=== PATIENT | male | born 1975 | race Caucasian/White ===

== ENCOUNTER 2019-05-09 10:03 | Inpatient (IN) | payer BC, OTHER ==
[~2019-05-09] VITALS: Ht 175.3 cm; Wt 105.2 kg
[~2019-05-09 10:03] MED LIST: AC500T; AZIT-21 PO; MMT17NA NS
--- NOTE | 2019-05-09 10:20 | NUR ---
pt gave urine sample at this time, unable to given BM sample
[2019-05-09 10:33] LABS: BASOPHILS # (AUTO) 0.1 10^3/uL (0.0-0.1); BASOPHILS % (AUTO) 0 % (0-10); EOSINOPHILS # (AUTO) 0.1 10^3/uL (0.0-0.3); EOSINOPHILS % (AUTO) 1 % (0-10); HEMATOCRIT 47 % (40-54); HEMOGLOBIN 16.4 G/DL (13.3-17.7); LYMPHOCYTES # (AUTO) 2.6 X 10^3 (1.0-4.0); LYMPHOCYTES % (AUTO) 14 % (12-44); MEAN CORPUSCULAR HEMOGLOBIN 32 PG (25-34); MEAN CORPUSCULAR HGB CONC 35 G/DL (32-36); MEAN CORPUSCULAR VOLUME 91 FL (80-99); MEAN PLATELET VOLUME 9.8 FL (7.4-10.4); MONOCYTES # (AUTO) 2.2 X 10^3 (0.0-1.0); MONOCYTES % (AUTO) 12 % (0-12); NEUTROPHILS # (AUTO) 13.8 X 10^3 (1.8-7.8); NEUTROPHILS % (AUTO) 74 % (42-75); PLATELET COUNT 261 10^3/uL (130-400); RED CELL DISTRIBUTION WIDTH 13.5 % (10.0-14.5); WHITE BLOOD COUNT 18.8 10^3/uL (4.3-11.0)
[2019-05-09 10:51] LABS: ALANINE AMINOTRANSFERASE 37 U/L (0-55); ALBUMIN 4.3 GM/DL (3.2-4.5); ALKALINE PHOSPHATASE 76 U/L (40-136); BILIRUBIN,TOTAL 1.3 MG/DL (0.1-1.0); BUN/CREATININE RATIO 8; CALCIUM 9.5 MG/DL (8.5-10.1); CARBON DIOXIDE 19 MMOL/L (21-32); CHLORIDE 107 MMOL/L (98-107); CREATININE SERUM 0.99 MG/DL (0.60-1.30); GFR ESTIMATED > 60; GLUCOSE 107 MG/DL (70-105); POTASSIUM 3.8 MMOL/L (3.6-5.0); SODIUM 139 MMOL/L (135-145); TOTAL PROTEIN 7.8 GM/DL (6.4-8.2)
[2019-05-09 11:30] LABS: EOSINOPHILS % (MANUAL) 1 %; LYMPHOCYTES % (MANUAL) 10 %; MONOCYTES % (MANUAL) 7 %; NEUTROPHILS % (MANUAL) 82 %; RBC MORPH NORMAL
[2019-05-09] MEDS ORDERED: fentaNYL INJECTION 100 MCG/2 ML AMP IVP ONE ×2 (11:45→14:15)
[2019-05-09 11:50] LABS: BACTERIA,URINE TRACE /HPF; BILIRUBIN,URINE NEGATIVE (NEGATIVE); CLARITY,URINE CLEAR; COLOR,URINE YELLOW; GLUCOSE, URINE (UA) NEGATIVE (NEGATIVE); KETONES,URINE 1+ (NEGATIVE); LEUKOCYTE ESTERASE ,URINE 1+ (NEGATIVE); NITRITE,URINE NEGATIVE (NEGATIVE); PH,URINE 5 (5-9); PROTEIN,URINE 2+ (NEGATIVE); UROBILINOGEN,URINE NORMAL (NORMAL)
[2019-05-09 11:51] LABS: AMORPHOUS SEDIMENT,UR FEW AMOR URATES /LPF
[2019-05-09] MEDS ORDERED: HOLD METFORMIN - RECEIVED CONTRAST 20 ML VIAL IV SCH (12:15)
[2019-05-09] MEDS ORDERED: IOHEXOL 350 MG/ML 100 ML (OMNIPAQUE 350) VIAL IV ONE (12:15)
[2019-05-09] MEDS ORDERED: NS 100 ML (IVPB) BAG IV ONE (12:15)
--- NOTE | 2019-05-09 12:53 | NUR ---
pt sitting quietly on bed visiting with spouse, pt denies any needs or c/o at this time, pt shows no s/s of distress, vs assessed and stable, pt rates pain at a 3/10, will continue to monitor
--- NOTE | 2019-05-09 12:59 | Diagnostic Imaging Report ---
PROCEDURE: CT abdomen and pelvis with contrast. TECHNIQUE: Multiple contiguous axial images were obtained through the abdomen and pelvis after administration of intravenous contrast. Auto Exposure Controls were utilized during the CT exam to meet ALARA standards for radiation dose reduction. INDICATION: Abdominal pain between the navel and bladder. Fever, onset 2 weeks ago. Prior history of kidney stones and diverticulitis. EXAMINATION: CT abdomen and pelvis with contrast dated 05/09/2019. COMPARISON: 02/19/2012 FINDINGS: The visualized lung bases appear clear. There is a small hiatal hernia. The abdomen and pelvis demonstrates diffuse fatty infiltration throughout the liver. Several hypodensities throughout the liver are noted which are fairly simple in appearance but some are too small for characterization. A few of the hypodensities in the right lobe have increased in size from previous imaging but have a fairly benign appearance. The spleen, pancreas and adrenal glands stable from previous. Kidneys unchanged from prior as well. Tiny hypodensities too small to characterize, seen in both kidneys. There is atherosclerotic disease along the aorta and its branches. Within the lower abdomen, into the pelvis, there is focal inflammatory change about the sigmoid colon consistent with acute diverticulitis. Adjacent wall thickening of the sigmoid is noted with diverticular disease present. There is no evidence for free air or abscess. Osseous structures demonstrate no evidence for acute abnormality. IMPRESSION: 1. Findings of acute diverticulitis. No evidence for perforation or abscess. 2. Other incidental findings as above including multiple low-density lesions throughout the liver, some of which are slightly increased in size from previous but could be followed with sonography or dedicated liver protocol CT as clinically indicated. Dictated by: Dictated on workstation # [id number]
[2019-05-09] MEDS ORDERED: PIPERACILLIN SODIUM/TAZOBACTAM 4.5 GM in NS (IVPB) 100 ML IV ONE (13:30)
--- NOTE | 2019-05-09 13:31 | ED Abdominal Pain ---
General Chief Complaint: Abdominal/GI Problems Stated Complaint: ABD PAIN/DIARRHEA/FEVER Nursing Triage Note: states he has a history of diverticulitis, was seen two weeks ago at [facility] and was given flagyl and cipro, states he finished the medicaitons and is still have diarrhea and abdominal pain, states each time he drinks or eats it just "runs right through him" Sepsis Screen: Possible Sepsis Risk Source of Information: Patient Exam Limitations: No Limitations History of Present Illness Date Seen by Provider: May 09, 2019 Time Seen by Provider: 10:13 Initial Comments This 43-year-old gentleman presents to the emergency room with complaints of lower abdominal pain and diarrhea for 2-3 weeks. He had presented to the [facility] walk-in clinic with these symptoms and was prescribed Cipro and Flagyl for 10 days resuming diverticulitis. Patient does have a history of diverticulitis with microperforation. He completed 10 days of antibiotic therapy but now has worsening pain and persistent diarrhea. Anything he eats or drinks goes straight through him. He has had subjective fever. He denies hematochezia, nausea, or vomiting. Patient also reports he passed a kidney stone a couple of weeks ago area and he denies any blood in his urine. He is afebrile at present. Allergies and Home Medications Allergies Uncoded Allergies: ENVIRONMENTAL (Allergy, Mild, 06/06/09) Patient Home Medication List Home Medication List Reviewed: Yes Review of Systems Review of Systems Constitutional: see HPI, fever (subjective) EENTM: No Symptoms Reported Respiratory: No Symptoms Reported Cardiovascular: No Symptoms Reported Gastrointestinal: See HPI Genitourinary: See HPI Musculoskeletal: no symptoms reported Skin: no symptoms reported Psychiatric/Neurological: No Symptoms Reported Endocrine: No Symptoms Reported Hematologic/Lymphatic: No Symptoms Reported Past Snfvwlz-Xynsbt-Jjbaml Hx Patient Social History Alcohol Use: Denies Use Recreational Drug Use: No Smoking Status: Current Everyday Smoker Type Used: Cigarettes 2nd Hand Smoke Exposure: Yes Recent Foreign Travel: No Contact w/Someone Who Travel: No Recent Infectious Disease Expo: No Recent Hopitalizations: No Seasonal Allergies Seasonal Allergies: No Past Medical History Surgeries: No Respiratory: Yes (smoker (current)) Cardiac: No Neurological: No Reproductive Disorders: No Genitourinary: Yes Kidney Stones Gastrointestinal: Yes (diverticulitis) Diverticulosis (diverticulitis with microperforation) Musculoskeletal: No Endocrine: No HEENT: No Cancer: No Psychosocial: No Integumentary: No Blood Disorders: No Physical Exam Vital Signs Vital Signs - First Documented 05/09/19 10:10 Temp 99.4 Pulse 126 Resp 18 B/P (MAP) 119/88 (98) Capillary Refill : Less Than 3 Seconds Height/Weight/BMI Height: 5'9.00" Weight: 240lbs. oz. 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, no motor/sensory deficits, alert, normal mood/affect, oriented x 3 Skin: normal color, warm/dry Progress/Results/Core Measures Results/Orders Lab Results Laboratory Tests Test 05/09/19 10:20 05/09/19 11:32 Range/Units White Blood Count 18.8 H 4.3-11.0 10^3/uL Red Blood Count 5.15 4.35-5.85 10^6/uL Hemoglobin 16.4 13.3-17.7 G/DL Hematocrit 47 40-54 % Mean Corpuscular Volume 91 80-99 FL Mean Corpuscular Hemoglobin 32 25-34 PG Mean Corpuscular Hemoglobin Concent 35 32-36 G/DL Red Cell Distribution Width 13.5 10.0-14.5 % Platelet Count 261 130-400 10^3/uL Mean Platelet Volume 9.8 7.4-10.4 FL Neutrophils (%) (Auto) 74 42-75 % Lymphocytes (%) (Auto) 14 12-44 % Monocytes (%) (Auto) 12 0-12 % Eosinophils (%) (Auto) 1 0-10 % Basophils (%) (Auto) 0 0-10 % Neutrophils # (Auto) 13.8 H 1.8-7.8 X 10^3 Lymphocytes # (Auto) 2.6 1.0-4.0 X 10^3 Monocytes # (Auto) 2.2 H 0.0-1.0 X 10^3 Eosinophils # (Auto) 0.1 0.0-0.3 10^3/uL Basophils # (Auto) 0.1 0.0-0.1 10^3/uL Neutrophils % (Manual) 82 % Lymphocytes % (Manual) 10 % Monocytes % (Manual) 7 % Eosinophils % (Manual) 1 % Blood Morphology Comment NORMAL Sodium Level 139 135-145 MMOL/L Potassium Level 3.8 3.6-5.0 MMOL/L Chloride Level 107 98-107 MMOL/L Carbon Dioxide Level 19 L 21-32 MMOL/L Anion Gap 13 5-14 MMOL/L Blood Urea Nitrogen 8 7-18 MG/DL Creatinine 0.99 0.60-1.30 MG/DL Estimat Glomerular Filtration Rate > 60 BUN/Creatinine Ratio 8 Glucose Level 107 H 70-105 MG/DL Calcium Level 9.5 8.5-10.1 MG/DL Corrected Calcium 9.3 8.5-10.1 MG/DL Total Bilirubin 1.3 H 0.1-1.0 MG/DL Aspartate Amino Transf (AST/SGOT) 19 5-34 U/L Alanine Aminotransferase (ALT/SGPT) 37 0-55 U/L Alkaline Phosphatase 76 40-136 U/L C-Reactive Protein High Sensitivity 12.70 H 0.00-0.50 MG/DL Total Protein 7.8 6.4-8.2 GM/DL Albumin 4.3 3.2-4.5 GM/DL Urine Color YELLOW Urine Clarity CLEAR Urine pH 5 5-9 Urine Specific [place] 1.015 L 1.016-1.022 Urine Protein 2+ H NEGATIVE Urine Glucose (UA) NEGATIVE NEGATIVE Urine Ketones 1+ H NEGATIVE Urine Nitrite NEGATIVE NEGATIVE Urine Bilirubin NEGATIVE NEGATIVE Urine Urobilinogen NORMAL NORMAL MG/DL Urine Leukocyte Esterase 1+ H NEGATIVE Urine RBC (Auto) 3+ H NEGATIVE Urine RBC NONE /HPF Urine WBC 2-5 /HPF Urine Squamous Epithelial Cells NONE /HPF Urine Crystals PRESENT H /LPF Urine Amorphous Sediment FEW DANAY URATES H /LPF Urine Bacteria TRACE /HPF Urine Casts PRESENT /LPF Urine Coarse Granular Casts 0-2 H /LPF Urine Mucus MODERATE H /LPF Urine Culture Indicated NO My Orders Orders - JOSHUA PETERSON MD Ed Iv/Invasive Line Start (05/09/19 10:20) Cbc With Automated Diff (05/09/19 10:20) Comprehensive Metabolic Panel (05/09/19 10:20) Hs C Reactive Protein (05/09/19 10:20) Ua Culture If Indicated (05/09/19 10:20) Stool Culture (05/09/19 10:20) Fecal Wbc (05/09/19 10:20) Parasite Scrn Stool Giard Cryp (05/09/19 10:20) C Difficile Ag + Toxin A/B. (05/09/19 10:20) Manual Differential (05/09/19 10:20) Fentanyl Injection (Sublimaze Injection (05/09/19 11:45) Ct Abdomen/Pelvis W (05/09/19 12:09) Iohexol Injection (Omnipaque 350 Mg/Ml 1 (05/09/19 12:15) Received Contrast (Hold Metformin- Contr (05/09/19 12:15) Ns (Ivpb) (Sodium Chloride 0.9% Ivpb Bag (05/09/19 12:15) Zosyn 4.5 Gm (X1)Ed Only (05/09/19 13:30) Medications Given in ED Current Medications Medications Dose Ordered Sig/Dorita Route Start Time Stop Time Status Last Admin Dose Admin Fentanyl Citrate 50 mcg ONCE ONCE IVP 05/09/19 11:45 05/09/19 11:46 DC 05/09/19 11:41 50 MCG Iohexol 100 ml ONCE ONCE IV 05/09/19 12:15 05/09/19 12:16 DC 05/09/19 12:35 100 ML Sodium Chloride 100 ml ONCE ONCE IV 05/09/19 12:15 05/09/19 12:16 DC 05/09/19 12:36 80 ML Vital Signs/I&O 05/09/19 10:10 Temp 99.4 Pulse 126 Resp 18 B/P (MAP) 119/88 (98) Blood Pressure Mean: 98 Progress Progress Note : Progress Note Patient was found to have significant leukocytosis. Workup was pursued further with CT of the abdomen and pelvis which demonstrated sigmoid diverticulitis. Pain was treated with fentanyl. Diverticulitis will be treated with Zosyn. Since patient has failed outpatient therapy, he will be admitted for IV antibiotic therapy. Case was discussed with Dr. Morrison. She requested consultation with Dr. Scott. He agrees with antibiotic therapy and requests NPO status. Stool studies were ordered in the ER but patient did not per reduce any stool during his ER stay. Diagnostic Imaging Diagonstic Imaging: CT Plain Films/CT/US/NM/MRI: abdomen, pelvis Comments CT abdomen and pelvis viewed by me and report reviewed. See report below: NAME: DELFINO CLEARY [facility] REC#: [id number] PT STATUS: REG ER : 1975 PHYSICIAN: JOSHUA PETERSON MD ADMIT DATE: 05/09/19/ER Draft Date of Exam:05/09/19 CT ABDOMEN/PELVIS W PROCEDURE: CT abdomen and pelvis with contrast. TECHNIQUE: Multiple contiguous axial images were obtained through the abdomen and pelvis after administration of intravenous contrast. Auto Exposure Controls were utilized during the CT exam to meet ALARA standards for radiation dose reduction. INDICATION: Abdominal pain between the navel and bladder. Fever, onset 2 weeks ago. Prior history of kidney stones and diverticulitis. EXAMINATION: CT abdomen and pelvis with contrast dated 05/09/2019. COMPARISON: 02/19/2012 FINDINGS: The visualized lung bases appear clear. There is a small hiatal hernia. The abdomen and pelvis demonstrates diffuse fatty infiltration throughout the liver. Several hypodensities throughout the liver are noted which are fairly simple in appearance but some are too small for characterization. A few of the hypodensities in the right lobe have increased in size from previous imaging but have a fairly benign appearance. The spleen, pancreas and adrenal glands stable from previous. Kidneys unchanged from prior as well. Tiny hypodensities too small to characterize, seen in both kidneys. There is atherosclerotic disease along the aorta and its branches. Within the lower abdomen, into the pelvis, there is focal inflammatory change about the sigmoid colon consistent with acute diverticulitis. Adjacent wall thickening of the sigmoid is noted with diverticular disease present. There is no evidence for free air or abscess. Osseous structures demonstrate no evidence for acute abnormality. IMPRESSION: 1. Findings of acute diverticulitis. No evidence for perforation or abscess. 2. Other incidental findings as above including multiple low-density lesions throughout the liver, some of which are slightly increased in size from previous but could be followed with sonography or dedicated liver protocol CT as clinically indicated. Dictated on workstation # [id number] Dict: 05/09/19 1238 Trans: 05/09/19 1258 [id number] Interpreted by: MARIBEL ROBLES MD Departure Communication (Admissions) Time/Spoke to Admitting Phy: 13:10 Dr. Morrison Time/Spoke to Consulting Phy: 13:15 Dr. Scott Impression Primary Impression: Diverticulitis of intestine Qualified Codes: K57.32 - Diverticulitis of large intestine without perforation or abscess without bleeding Additional Impressions: Acute abdominal pain Acute diarrhea Disposition: ADMITTED INPATIENT Condition: Improved Admissions Decision to Admit Reason: Admit from ER (General) Decision to Admit/Date: May 09, 2019 Time/Decision to Admit Time: 13:05 Departure-Patient Inst. Referrals: NO,LOCAL PHYSICIAN (PCP) Primary Care Physician JOSHUA PETERSON MD May 09, 2019 13:31
--- NOTE | 2019-05-09 15:20 | NUR ---
DELFINO CLEARY admitted to room 417-1, with an admitting diagnosis of DIVERTICULITIS, ABD PAIN AND DIARRHEA, on 05/09/19 from ED via W/C, accompanied by AND ED STAFF. DELFINO CLEARY introduced to surroundings, call light, bed controls, phone, TV, temperature control, lights, meal times, smoking policy, visitor policy, side rail policy, bathrooms and showers. Patient Rights given to patient in the handbook. DELFINO CLEARY verbalizes understanding that [facility] is not responsible for the loss or damage to any personal effects or valuables that are kept in the patients possession during their hospitalization.
[2019-05-09] MEDS ORDERED: D5 1/2 NS W/KCL 20 MEQ/L 1,000 ML IV ONE (15:30)
--- NOTE | 2019-05-09 15:31 | Consultation - Surgery ---
History of Present Illness History of Present Illness Patient Consulted On(jairo/time) 05/09/19 15:26 Time Seen by Provider: 15:01 History of Present Illness Surgery asked to consult regarding Diverticulitis, consult done in ER. HPI per ED: states he has a history of diverticulitis, was seen two weeks ago at [facility] and was given flagyl and cipro, states he finished the medicaitons and is still have diarrhea and abdominal pain, states each time he drinks or eats it just "runs right through him" This 43-year-old gentleman presents to the emergency room with complaints of lower abdominal pain and diarrhea for 2-3 weeks. He had presented to the [facility] walk-in clinic with these symptoms and was prescribed Cipro and Flagyl for 10 days resuming diverticulitis. Patient does have a history of diverticulitis with microperforation. He completed 10 days of antibiotic therapy but now has worsening pain and persistent diarrhea. Anything he eats or drinks goes straight through him. He has had subjective fever. He denies hematochezia, nausea, or vomiting. Patient also reports he passed a kidney stone a couple of weeks ago area and he denies any blood in his urine. He is afebrile at present. When I spoke to him pt states he "must have had 25 episodes of liquid BM since 6pm last night". Pain is mild but just not getting better. He hasn't had any pain like this for at least 7 yrs; that was when he had another episode of Diverticulitis "pain was worse then compared to now". Describes pain in LLQ constant crampy pain; no radiation of the pain. Allergies and Home Medications Allergies Uncoded Allergies: ENVIRONMENTAL (Allergy, Mild, 06/06/09) Patient Home Medication List Home Medication List Reviewed: Yes Past Tpdsjmg-Pzcwlf-Owcubk Hx Patient Social History Alcohol Use: Denies Use Recreational Drug Use: No Smoking Status: Current Everyday Smoker Type Used: Cigarettes 2nd Hand Smoke Exposure: Yes Recent Foreign Travel: No Contact w/Someone Who Travel: No Recent Infectious Disease Expo: No Recent Hopitalizations: No Seasonal Allergies Seasonal Allergies: No Surgeries History of Surgeries: No Respiratory History of Respiratory Disorde: Yes (smoker (current)) Cardiovascular History of Cardiac Disorders: No Neurological History of Neurological Disord: No Reproductive System Hx Reproductive Disorders: No Genitourinary History of Genitourinary Disor: Yes Genitourinary Disorders: Kidney Stones Gastrointestinal History of Gastrointestinal Di: Yes (diverticulitis) Gastrointestinal Disorders: Diverticulosis (diverticulitis with microperforation) Musculoskeletal History of Musculoskeletal Dis: No Endocrine History of Endocrine Disorders: No HEENT History of HEENT Disorders: No Cancer History of Cancer: No Psychosocial History of Psychiatric Problem: No Integumentary History of Skin or Integumenta: No Blood Transfusions History of Blood Disorders: No Family Medical History Significant Family History: Diabetes (grandfather), GI Disease (mother had diverticulitis) Review of Systems-General Constitutional: No chills, No diaphoresis; malaise, weakness EENTM: No blurred vision, No double vision, No mouth pain, No mouth swelling, No epistaxis Respiratory: No cough, No dyspnea on exertion, No short of breath Cardiovascular: No chest pain, No edema, No palpitations Gastrointestinal: abdominal pain, diarrhea; No melena, No nausea, No vomiting; other (denies hematochezia) Genitourinary: No dysuria, No frequency, No hematuria Musculoskeletal: No joint pain, No joint swelling, No muscle stiffness, No muscle cramps Skin: No change in color, No change in hair/nails Psychiatric/Neurological: Denies Anxiety, Denies Depressed, Denies Seizure, Denies Tremors Other Pt denies any hx of abnormal bleeding or bruising Physical Exam-General Problems Physical Exam Vital Signs Vital Signs - First Documented 05/09/19 10:10 Temp 99.4 Pulse 126 Resp 18 B/P (MAP) 119/88 (98) Capillary Refill : Less Than 3 Seconds General Appearance: WD/WN, mild distress Eyes: Bilateral Eye PERRL, Bilateral Eye EOMI HEENT: pharynx normal; No scleral icterus (R), No scleral icterus (L) Neck: non-tender, full range of motion, supple, normal inspection Respiratory: chest non-tender, lungs clear, normal breath sounds, no respiratory distress, no accessory muscle use Cardiovascular: regular rate, rhythm, no edema, no murmur Gastrointestinal: normal bowel sounds, soft, no organomegaly, no pulsatile mass, guarding (voluntary, jumped when I pushed in LLQ), tenderness (LLQ), hernia (umbilical, reducible) Rectal: deferred Back: no CVA tenderness, no vertebral tenderness Extremities: normal range of motion, non-tender, normal inspection, no pedal edema, no calf tenderness 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, no motor/sensory deficits, alert, normal mood/affect, oriented x 3 Skin: normal color, warm/dry Lymphatic: no adenopathy (neck, axilla or groin) Data Review Labs Laboratory Tests 05/09/19 10:20: White Blood Count 18.8H, Red Blood Count 5.15, Hemoglobin 16.4, Hematocrit 47, Mean Corpuscular Volume 91, Mean Corpuscular Hemoglobin 32, Mean Corpuscular Hemoglobin Concent 35, Red Cell Distribution Width 13.5, Platelet Count 261, Mean Platelet Volume 9.8, Neutrophils (%) (Auto) 74, Lymphocytes (%) (Auto) 14, Monocytes (%) (Auto) 12, Eosinophils (%) (Auto) 1, Basophils (%) (Auto) 0, Neutrophils # (Auto) 13.8H, Lymphocytes # (Auto) 2.6, Monocytes # (Auto) 2.2H, Eosinophils # (Auto) 0.1, Basophils # (Auto) 0.1, Neutrophils % (Manual) 82, Lymphocytes % (Manual) 10, Monocytes % (Manual) 7, Eosinophils % (Manual) 1, Blood Morphology Comment NORMAL, Sodium Level 139, Potassium Level 3.8, Chloride Level 107, Carbon Dioxide Level 19L, Anion Gap 13, Blood Urea Nitrogen 8, Creatinine 0.99, Estimat Glomerular Filtration Rate > 60, BUN/Creatinine Ratio 8, Glucose Level 107H, Calcium Level 9.5, Corrected Calcium 9.3, Total Bilirubin 1.3H, Aspartate Amino Transf (AST/SGOT) 19, Alanine Aminotransferase (ALT/SGPT) 37, Alkaline Phosphatase 76, C-Reactive Protein High Sensitivity 12.70H, Total Protein 7.8, Albumin 4.3 05/09/19 11:32: Urine Color YELLOW, Urine Clarity CLEAR, Urine pH 5, Urine Specific [place] 1.015L, Urine Protein 2+H, Urine Glucose (UA) NEGATIVE, Urine Ketones 1+H, Urine Nitrite NEGATIVE, Urine Bilirubin NEGATIVE, Urine Urobilinogen NORMAL, Urine Leukocyte Esterase 1+H, Urine RBC (Auto) 3+H, Urine RBC NONE, Urine WBC 2-5, Urine Squamous Epithelial Cells NONE, Urine Crystals PRESENTH, Urine Amorphous Sediment FEW DANAY URATESH, Urine Bacteria TRACE, Urine Casts PRESENT, Urine Coarse Granular Casts 0-2H, Urine Mucus MODERATEH, Urine Culture Indicated NO Assessment/Plan Assessment/Plan Assessment/Plan Diverticulitis Diarrhea Plan is NPO, IV fluids, pain control, anti-emetics, IV ABX and will get stool cultures. Reviewed CT and compared to 2012; inflammation this time is not as bad as 7 yrs ago, which may be due to the fact that he has been on ABX. I discussed causes of diverticulitis with pt and his and the importance of increasing fiber through diet. Hopefully will be able to start PO diet soon, will monitor labs and abdominal exam. JOHN MARROQUIN DO May 09, 2019 15:31
[2019-05-09 15:38] VITALS: BP 133/90
[2019-05-09] MEDS: D5 1/2 NS W/KCL 20 MEQ/L 1,000 ML IV SCH (15:45)
[2019-05-09] MEDS: fentaNYL INJECTION 100 MCG/2 ML AMP INJ PRN ×2 (17:30→20:46)
[2019-05-09] MEDS: metroNIDAZOLE 500 MG/100 ML IVPB (PRE-MIX) IV SCH (17:35)
[2019-05-09 20:36] VITALS: BP 135/75
[2019-05-09] MEDS: PIPERACILLIN/TAZO 4.5 GM/NS 100 ML IV SCH ×2 (20:44)
[2019-05-09] MEDS: ONDANSETRON 4 MG/2 ML (SDV) Z0FRAN IV PRN (20:46)
[2019-05-10] VITALS (7 sets, daily range): BP systolic 116–136; BP diastolic 66–84
[2019-05-10] MEDS: ONDANSETRON 4 MG/2 ML (SDV) Z0FRAN IV PRN ×2 (00:21→04:56)
[2019-05-10] MEDS: fentaNYL INJECTION 100 MCG/2 ML AMP INJ PRN ×6 (00:21→22:54)
[2019-05-10] MEDS: metroNIDAZOLE 500 MG/100 ML IVPB (PRE-MIX) IV SCH ×5 (00:22→21:19)
[2019-05-10] MEDS: D5 1/2 NS W/KCL 20 MEQ/L 1,000 ML IV SCH ×3 (01:08→13:04)
[2019-05-10] MEDS: PIPERACILLIN/TAZO 4.5 GM/NS 100 ML IV SCH ×6 (05:59→21:19)
[2019-05-10 09:01] LABS: BASOPHILS # (AUTO) 0.1 10^3/uL (0.0-0.1); BASOPHILS % (AUTO) 0 % (0-10); EOSINOPHILS # (AUTO) 0.3 10^3/uL (0.0-0.3); EOSINOPHILS % (AUTO) 3 % (0-10); HEMATOCRIT 44 % (40-54); HEMOGLOBIN 15.3 G/DL (13.3-17.7); LYMPHOCYTES # (AUTO) 2.3 X 10^3 (1.0-4.0); LYMPHOCYTES % (AUTO) 17 % (12-44); MEAN CORPUSCULAR HEMOGLOBIN 32 PG (25-34); MEAN CORPUSCULAR HGB CONC 35 G/DL (32-36); MEAN CORPUSCULAR VOLUME 92 FL (80-99); MEAN PLATELET VOLUME 9.7 FL (7.4-10.4); MONOCYTES # (AUTO) 1.9 X 10^3 (0.0-1.0); MONOCYTES % (AUTO) 14 % (0-12); NEUTROPHILS # (AUTO) 9.2 X 10^3 (1.8-7.8); NEUTROPHILS % (AUTO) 67 % (42-75); PLATELET COUNT 253 10^3/uL (130-400); RED CELL DISTRIBUTION WIDTH 13.7 % (10.0-14.5); WHITE BLOOD COUNT 13.8 10^3/uL (4.3-11.0)
[2019-05-10 09:21] LABS: BUN/CREATININE RATIO 10; CALCIUM 9.3 MG/DL (8.5-10.1); CARBON DIOXIDE 20 MMOL/L (21-32); CHLORIDE 109 MMOL/L (98-107); CREATININE SERUM 0.96 MG/DL (0.60-1.30); GFR ESTIMATED > 60; GLUCOSE 96 MG/DL (70-105); MAGNESIUM 1.7 MG/DL (1.6-2.4); POTASSIUM 3.7 MMOL/L (3.6-5.0); SODIUM 140 MMOL/L (135-145)
--- NOTE | 2019-05-10 11:08 | Progress Note - Surgery ---
ONEIDA FISHER,MED STUDENT 05/10/19 1108: Subjective Date Seen by a Provider: May 10, 2019 Time Seen by a Provider: 09:45 Subjective/Events-last exam Pt states abdominal pain is 5/10 today and controlled. Has had four episodes of diarrhea that initially relieve the pain but, after walking back to his bed, pain continues a little worse than before. Pt would like some water. Otherwise, no new complaints at this time. Pt accompanied by at bedside. Review of Systems General: No Chills, No Night Sweats HEENT: No Eye Pain, No Ear Pain Pulmonary: No Dyspnea, No Cough Cardiovascular: No: Chest Pain, Edema Gastrointestinal: Abdominal Pain, Diarrhea; No: Nausea, Vomiting Objective Exam Vital Signs Date Time Temp Pulse Resp B/P (MAP) Pulse Ox O2 Delivery O2 Flow Rate FiO2 05/10/19 08:00 97.4 92 18 116/74 (88) 95 Room Air 05/10/19 04:50 97.6 95 20 136/84 (101) 96 Room Air 05/10/19 00:00 98.4 110 20 125/66 (85) 98 Room Air 05/09/19 20:36 99.2 101 18 135/75 (95) 95 Room Air 05/09/19 20:00 95 Room Air 05/09/19 18:25 Room Air 05/09/19 15:38 99.2 108 20 133/90 94 Room Air 05/09/19 15:38 99.2 108 20 133/90 (104) 94 Room Air 05/09/19 15:25 99.4 117 18 115/82 (93) 95 Room Air I & O 05/10/19 07:00 Intake Total 100 ml Output Total 3 ml Balance 97 ml Capillary Refill : Less Than 3 Seconds General Appearance: No Apparent Distress, WD/WN HEENT: PERRL/EOMI; No Pale Conjunctivae (L), No Pale Conjunctivae (R), No Scleral Icterus (L), No Scleral Icterus (R) Neck: Normal Inspection, Non Tender; No Thyromegaly Respiratory: No Accessory Muscle Use, No Respiratory Distress Cardiovascular: No Edema, Normal Peripheral Pulses Gastrointestinal: soft, guarding (voluntary gaurding upon palation of midline abdomen inferior to umbilicus), tenderness (LLQ) Neurologic/Psychiatric: Alert, Oriented x3, Normal Mood/Affect Skin: Normal Color, Warm/Dry Results Lab Laboratory Tests 05/09/19 11:32: Urine Color YELLOW, Urine Clarity CLEAR, Urine pH 5, Urine Specific [place] 1.015L, Urine Protein 2+H, Urine Glucose (UA) NEGATIVE, Urine Ketones 1+H, Urine Nitrite NEGATIVE, Urine Bilirubin NEGATIVE, Urine Urobilinogen NORMAL, Urine Leukocyte Esterase 1+H, Urine RBC (Auto) 3+H, Urine RBC NONE, Urine WBC 2-5, Urine Squamous Epithelial Cells NONE, Urine Crystals PRESENTH, Urine Amorphous Sediment FEW DANAY URATESH, Urine Bacteria TRACE, Urine Casts PRESENT, Urine Coarse Granular Casts 0-2H, Urine Mucus MODERATEH, Urine Culture Indicated NO 05/10/19 08:55: White Blood Count 13.8H, Red Blood Count 4.82, Hemoglobin 15.3, Hematocrit 44, Mean Corpuscular Volume 92, Mean Corpuscular Hemoglobin 32, Mean Corpuscular Hemoglobin Concent 35, Red Cell Distribution Width 13.7, Platelet Count 253, Mean Platelet Volume 9.7, Neutrophils (%) (Auto) 67, Lymphocytes (%) (Auto) 17, Monocytes (%) (Auto) 14H, Eosinophils (%) (Auto) 3, Basophils (%) (Auto) 0, Neutrophils # (Auto) 9.2H, Lymphocytes # (Auto) 2.3, Monocytes # (Auto) 1.9H, Eosinophils # (Auto) 0.3, Basophils # (Auto) 0.1, Sodium Level 140, Potassium Level 3.7, Chloride Level 109H, Carbon Dioxide Level 20L, Anion Gap 11, Blood Urea Nitrogen 10, Creatinine 0.96, Estimat Glomerular Filtration Rate > 60, BUN/Creatinine Ratio 10, Glucose Level 96, Calcium Level 9.3, Magnesium Level 1.7 Microbiology 05/09/19 Fecal Leukocyte Stain - Final, Resulted 05/09/19 C. difficile DNA Amplification, Resulted Pending 05/09/19 C. difficile GDH Antigen & Toxins - Final, Resulted 05/09/19 Stool Culture, Resulted Pending Assessment/Plan Assessment/Plan Assessment/Plan Diverticulitis Diarrhea WBC has begun to decline to 13.8 today from 18.8 at admission. Continue pain control, IV fluids and antibiotics. Initial stool cultures showed no A or B toxins but positive GDH antigen, awaiting pathology. Continuing no diet but will allow patient ice water as tolerated. Will continue to monitor labs and abdominal exam. Clinical Quality Measures DVT/VTE Risk/Contraindication: Risk Factor Score Per Nursin RFS Level Per Nursing on Admit: 3=High DEDRICK SCOTT DO 05/10/19 1514: Subjective Subjective/Events-last exam Pt main complaint was he wanted some ice water, states he is doing better than yesterday. Diarrhea seems to be less, per pt. Assessment/Plan Assessment/Plan Assessment/Plan R/O C. Diff will await final microbiology, may need to start oral vancomycin if final result is positive. Supervisory-Addendum Brief Verification & Attestation Participated in pt care: history, physical Personally performed: exam, history, MDM Care discussed with: Medical Student Procedures: n/a Verification and Attestation of Medical Student E/M Service A medical student performed and documented this service in my presence. I reviewed and verified all information documented by the medical student and made modifications to such information, when appropriate. I personally performed the physical exam and medical decision making. Dedrick Scott, May 10, 2019,15:13 ONEIDA FISHER,MED STUDENT May 10, 2019 11:08 DEDRICK SCOTT DO May 10, 2019 15:14
--- NOTE | 2019-05-10 13:40 | History & Physical-Hospitalist ---
History of Present Illness HPI/Chief Complaint Demetrio Cameron is a 43-year-old male with past medical history of diverticulitis who presents with abdominal pain. He reports that it started 3 weeks ago. The pain is localized in the left lower quadrant without radiation. It is been associated with watery diarrhea 10-20 times daily. He was treated with a 10 day course ciprofloxacin and Flagyl. He initially improved, but his symptoms persisted despite this. He initially had fevers up to 102.8, and they returned prior to him coming to the emergency room up to 101. He denies any nausea or vomiting. He reports some bright red blood per rectum which he attributed to hemorrhoids. He denies any chest pain or shortness of breath. He denies any antibiotic use prior to the beginning of his symptoms. He denies any recent hospitalizations. He denies any history of C. difficile infection. Source: patient Exam Limitations: no limitations Date Seen 05/10/19 Time Seen by a Provider: 10:00 Attending Physician Akila Morrison MD PCP No,Local Physician Referring Physician Date of Admission May 09, 2019 at 13:10 Home Medications & Allergies Home Medications Reviewed patient Home Medication Reconciliation performed by pharmacy medication reconciliations nuclear test technician and/or nursing. Patients Allergies have been reviewed. Allergies Allergies Uncoded Allergies ENVIRONMENTAL ( Allergy, Mild, 06/06/09) Past Rfbyvfi-Tcfdle-Lghnvo Hx Past Med/Social Hx: Reviewed Nursing Past Med/Soc Hx Patient Social History Alcohol Use: Denies Use Recreational Drug Use: No Smoking Status: Current Everyday Smoker Type Used: Cigarettes 2nd Hand Smoke Exposure: Yes Recent Foreign Travel: No Contact w/other who traveled: No Recent Hopitalizations: No Recent Infectious Disease Expo: No Seasonal Allergies Seasonal Allergies: No Past Medical History Reproductive: No Genitourinary: Kidney Stones Gastrointestinal: Diverticulosis (diverticulitis with microperforation) History of Blood Disorders: No Family History Diabetes (grandfather), GI Disease (mother had diverticulitis) Review of Systems Constitutional: fever, weakness EENTM: no symptoms reported Respiratory: no symptoms reported Cardiovascular: no symptoms reported Gastrointestinal: LLQ, abdominal pain (LLQ), diarrhea; No melena, No nausea, No vomiting Genitourinary: no symptoms reported Musculoskeletal: no symptoms reported Skin: no symptoms reported Psychiatric/Neurological: No Symptoms Reported Physical Exam Physical Exam Vital Signs Vital Signs - First Documented 05/09/19 05/09/19 10:10 15:25 Temp 99.4 Pulse 126 Resp 18 B/P (MAP) 119/88 (98) Pulse Ox 95 O2 Delivery Room Air Capillary Refill : Less Than 3 Seconds Height, Weight, BMI Height: 5'9.00" Weight: 232lbs. 0.0oz. [id number]; 34.3 BMI Method:Stated General Appearance: No Apparent Distress, WD/WN HEENT: PERRL/EOMI, Pharynx Normal Neck: Normal Inspection, Supple Respiratory: Lungs Clear, Normal Breath Sounds, No Respiratory Distress Cardiovascular: Regular Rate, Rhythm, No Edema, No Murmur Gastrointestinal: Normal Bowel Sounds, Soft, Tenderness (left lower quadrant) Extremity: Normal Inspection, Non Tender, No Pedal Edema Neurologic/Psychiatric: Alert, No Motor/Sensory Deficits; No Disoriented Skin: Normal Color, Warm/Dry Lymphatic: No Adenopathy Results Results/Procedures Labs Laboratory Tests 05/09/19 10:20 05/10/19 08:55 Patient resulted labs reviewed. Imaging: Reviewed Imaging Report Assessment/Plan Admission Diagnosis Diverticulitis Admission Status: Inpatient Order (span 2 midnights) Reason for Inpatient Admission: Diarrhea Assessment and Plan Diverticulitis Diarrhea -CT Abd consistent with acute diverticulitis -Started on Zosyn and Flagyl -Surgery consulted -NPO -Pain regimen and antiemetics available -Stool culture, c diff ordered Diagnosis/Problems Diagnosis/Problems (1) Diverticulitis of intestine Status: Acute Qualifiers: Diverticulitis site: large intestine Diverticulitis bleeding: without bleeding Diverticulitis complication: without perforation or abscess Qualified Codes: K57.32 - Diverticulitis of large intestine without perforation or abscess without bleeding (2) Acute diarrhea Status: Acute Clinical Quality Measures DVT/VTE Risk/Contraindication: Risk Factor Score Per Nursin RFS Level Per Nursing on Admit: 3=High NICOL HALL MD May 10, 2019 13:40
[2019-05-11] MEDS: D5 1/2 NS W/KCL 20 MEQ/L 1,000 ML IV SCH (02:12)
[2019-05-11] MEDS: metroNIDAZOLE 500 MG/100 ML IVPB (PRE-MIX) IV SCH (03:23)
[2019-05-11 03:24] VITALS: BP 123/78
[2019-05-11] MEDS: fentaNYL INJECTION 100 MCG/2 ML AMP INJ PRN (03:50)
[2019-05-11] MEDS: PIPERACILLIN/TAZO 4.5 GM/NS 100 ML IV SCH ×2 (04:46)
[2019-05-11 06:15] LABS: BASOPHILS # (AUTO) 0.1 10^3/uL (0.0-0.1); BASOPHILS % (AUTO) 1 % (0-10); EOSINOPHILS # (AUTO) 0.4 10^3/uL (0.0-0.3); EOSINOPHILS % (AUTO) 4 % (0-10); HEMATOCRIT 42 % (40-54); HEMOGLOBIN 14.4 G/DL (13.3-17.7); LYMPHOCYTES % (AUTO) 23 % (12-44); MEAN CORPUSCULAR HEMOGLOBIN 32 PG (25-34); MEAN CORPUSCULAR HGB CONC 34 G/DL (32-36); MEAN CORPUSCULAR VOLUME 93 FL (80-99); MEAN PLATELET VOLUME 9.9 FL (7.4-10.4); MONOCYTES # (AUTO) 1.1 X 10^3 (0.0-1.0); MONOCYTES % (AUTO) 13 % (0-12); NEUTROPHILS # (AUTO) 5.3 X 10^3 (1.8-7.8); NEUTROPHILS % (AUTO) 60 % (42-75); PLATELET COUNT 219 10^3/uL (130-400); RED CELL DISTRIBUTION WIDTH 13.1 % (10.0-14.5); WHITE BLOOD COUNT 8.9 10^3/uL (4.3-11.0)
[2019-05-11 06:39] LABS: BUN/CREATININE RATIO 10; CALCIUM 8.9 MG/DL (8.5-10.1); CARBON DIOXIDE 23 MMOL/L (21-32); CHLORIDE 108 MMOL/L (98-107); CREATININE SERUM 1.03 MG/DL (0.60-1.30); GFR ESTIMATED > 60; GLUCOSE 100 MG/DL (70-105); POTASSIUM 3.6 MMOL/L (3.6-5.0); SODIUM 140 MMOL/L (135-145)
--- NOTE | 2019-05-11 07:55 | NUR ---
Patient will need to stay in isolation until the Molecular study on his stool complete and negative.
[2019-05-11 08:00] VITALS: BP 148/86
[2019-05-11] MEDS ORDERED: VANCOMYCIN ORAL SUSPENSION 60 ML BOTTLE PO SCH (08:45)
[2019-05-11] MEDS ORDERED: cefTRIAXone FOR IV USE 2,000 MG in WATER (STERILE) FOR INJECTION 20 ML IV SCH (09:00)
[2019-05-11] MEDS ORDERED: fentaNYL INJECTION 100 MCG/2 ML AMP IV PRN (09:00)
[2019-05-11] MEDS ORDERED: VANCOMYCIN ORAL 250 MG/5 ML 120 ML PO SCH ×2 (10:00)
[2019-05-11] MEDS ORDERED: METR500T PO (11:32)
[2019-05-11] MEDS ORDERED: CEFD300C3 PO (11:32)
--- NOTE | 2019-05-11 11:36 | Discharge Inst-Simple/Standard ---
Discharge Inst-Standard Reconcile Patient Problems Problems Reviewed?: Yes Discharge Medications New, Converted or Re-Newed RX: Transmitted to Pharmacy Patient Instructions/Follow Up Plan of Care/Instructions/FU: Take medications as prescribed. Follow up with PCP in one week. Activity as Tolerated: Yes Discharge Diet: No Restrictions Return to The Hospital For: fever, shortness of breath, or if you feel like you are getting worse Planned Outpatient Orders/Ref. Pneu Vac Indicated: Yes NICOL HALL MD May 11, 2019 11:36
[2019-05-11] MEDS ORDERED: RELABEL FOR HOME USE MC SCH (11:45)
--- NOTE | 2019-05-11 11:59 | Progress Note - Surgery ---
Subjective Time Seen by a Provider: 11:44 Subjective/Events-last exam Pt seen and examined, no complaints today. He is hungry and ready to eat, still having diarrhea but he thinks it is improving. States it is "green now, was yellow". Review of Systems Pulmonary: No Dyspnea, No Cough Cardiovascular: No: Chest Pain, Palpitations Gastrointestinal: Diarrhea; No: Nausea, Vomiting Objective Exam Vital Signs Date Time Temp Pulse Resp B/P (MAP) Pulse Ox O2 Delivery O2 Flow Rate FiO2 05/11/19 08:00 95 Room Air 05/11/19 08:00 97.6 83 20 148/86 (106) 95 Room Air 05/11/19 03:24 97.8 70 18 123/78 (93) 93 Room Air 05/10/19 23:39 97.0 84 18 132/79 (96) 94 Room Air 05/10/19 20:00 97.3 81 18 123/78 (93) 98 Room Air 05/10/19 20:00 Room Air 05/10/19 15:32 97.0 85 20 130/80 (97) 96 Room Air 05/10/19 12:00 98.1 100 18 122/72 (89) 96 Room Air I & O 05/11/19 07:00 Intake Total 2420 ml Balance 2420 ml Capillary Refill : Less Than 3 Seconds General Appearance: No Apparent Distress, WD/WN HEENT: PERRL/EOMI, Pharynx Normal Neck: Normal Inspection, Supple Respiratory: Lungs Clear, Normal Breath Sounds, No Respiratory Distress Cardiovascular: Regular Rate, Rhythm, No Edema, No Murmur Gastrointestinal: soft, distended (but this is normal body habitus), tenderness (LLQ very minimal with deep palpation) Extremity: Normal Inspection, Non Tender, No Pedal Edema Neurologic/Psychiatric: Alert; No Disoriented Skin: Normal Color, Warm/Dry Results Lab Laboratory Tests 05/11/19 06:03: White Blood Count 8.9, Red Blood Count 4.52, Hemoglobin 14.4, Hematocrit 42, Mean Corpuscular Volume 93, Mean Corpuscular Hemoglobin 32, Mean Corpuscular Hemoglobin Concent 34, Red Cell Distribution Width 13.1, Platelet Count 219, Mean Platelet Volume 9.9, Neutrophils (%) (Auto) 60, Lymphocytes (%) (Auto) 23, Monocytes (%) (Auto) 13H, Eosinophils (%) (Auto) 4, Basophils (%) (Auto) 1, Neutrophils # (Auto) 5.3, Lymphocytes # (Auto) 2.0, Monocytes # (Auto) 1.1H, Eosinophils # (Auto) 0.4H, Basophils # (Auto) 0.1, Sodium Level 140, Potassium Level 3.6, Chloride Level 108H, Carbon Dioxide Level 23, Anion Gap 9, Blood Urea Nitrogen 10, Creatinine 1.03, Estimat Glomerular Filtration Rate > 60, BUN/Creatinine Ratio 10, Glucose Level 100, Calcium Level 8.9 Microbiology 05/09/19 Fecal Leukocyte Stain - Final, Resulted 05/09/19 C. difficile DNA Amplification - Final, Resulted 05/09/19 C. difficile GDH Antigen & Toxins - Final, Resulted 05/09/19 Stool Culture - Preliminary, Resulted Assessment/Plan Assessment/Plan Assessment/Plan Diverticulitis ?? C. Diff Plan is increase diet and start on oral vancomycin; can d/c home and I will see him as an outpt. All questions answered to his satisfaction. Clinical Quality Measures DVT/VTE Risk/Contraindication: Risk Factor Score Per Nursin RFS Level Per Nursing on Admit: 3=High JOHN MARROQUIN DO May 11, 2019 11:58
[2019-05-11 12:00] VITALS: BP 134/87
--- NOTE | 2019-05-11 13:56 | Discharge Summary ---
Diagnosis/Chief Complaint Date of Admission May 09, 2019 at 13:10 Date of Discharge Discharge Date: May 11, 2019 Discharge Time: 13:51 Admission Diagnosis Diverticulitis Primary Care No,Local Physician Discharge Diagnosis Diverticulitis and C diff colitis (1) Diverticulitis of intestine Status: Acute (2) C. difficile colitis Status: Acute (3) Acute diarrhea Status: Resolved Discharge Summary Discharge Physical Exam Allergies: Uncoded Allergies: ENVIRONMENTAL (Allergy, Mild, 06/06/09) Vitals & I&Os Vital Signs Date Time Temp Pulse Resp B/P (MAP) Pulse Ox O2 Delivery O2 Flow Rate FiO2 05/11/19 12:00 97.9 85 20 134/87 (103) 96 Room Air General Appearance: No Apparent Distress, WD/WN, Obese HEENT: PERRL/EOMI, Pharynx Normal Respiratory: Lungs Clear, Normal Breath Sounds, No Respiratory Distress Cardiovascular: Regular Rate, Rhythm, No Edema, No Murmur Gastrointestinal: Normal Bowel Sounds, Soft, Tenderness Extremity: Normal Inspection, Non Tender Skin: Normal Color, Warm/Dry Neurologic/Psychiatric: Alert, Oriented x3 Hospital Course Was the Problem List Reviewed?: Yes Mr. Cameron is a 43-year-old male with past medical history of diverticulitis who presented with right lower quadrant abdominal pain and was admitted with acute diverticulitis. The pain first started 3 weeks ago. At that time he was prescribed ciprofloxacin and Flagyl as an outpatient. He completed a ten-day course of the antibiotics. During that time he was also having fevers and watery diarrhea between 10 and 20 times daily. After taking the antibiotics initially started to feel better, but then his abdominal pain, diarrhea, and fevers returned. He was started on Zosyn and Flagyl on admission for acute diverticulitis. C. difficile testing was indeterminant and a PCR was sent off for confirmatory testing. He was started on oral vancomycin and prescribed a ten-day course. He was also discharged with a 7 day course of the Omnicef and Flagyl for diverticulitis. General surgery was counseled that during his admission and they will follow up with him as an outpatient in about 2 weeks. Labs (last 24 hrs) Laboratory Tests 05/11/19 06:03: White Blood Count 8.9, Red Blood Count 4.52, Hemoglobin 14.4, Hematocrit 42, Mean Corpuscular Volume 93, Mean Corpuscular Hemoglobin 32, Mean Corpuscular Hemoglobin Concent 34, Red Cell Distribution Width 13.1, Platelet Count 219, Mean Platelet Volume 9.9, Neutrophils (%) (Auto) 60, Lymphocytes (%) (Auto) 23, Monocytes (%) (Auto) 13H, Eosinophils (%) (Auto) 4, Basophils (%) (Auto) 1, Neutrophils # (Auto) 5.3, Lymphocytes # (Auto) 2.0, Monocytes # (Auto) 1.1H, Eosinophils # (Auto) 0.4H, Basophils # (Auto) 0.1, Sodium Level 140, Potassium Level 3.6, Chloride Level 108H, Carbon Dioxide Level 23, Anion Gap 9, Blood Urea Nitrogen 10, Creatinine 1.03, Estimat Glomerular Filtration Rate > 60, BUN/Creatinine Ratio 10, Glucose Level 100, Calcium Level 8.9 Microbiology 05/09/19 Fecal Leukocyte Stain - Final, Resulted 05/09/19 C. difficile DNA Amplification - Final, Resulted 05/09/19 C. difficile GDH Antigen & Toxins - Final, Resulted 05/09/19 Stool Culture - Preliminary, Resulted Culture In Progress Presumptive Usual Stephanie Patient resulted labs reviewed. Pending Labs Laboratory Tests 05/11/19 06:03: White Blood Count 8.9, Red Blood Count 4.52, Hemoglobin 14.4, Hematocrit 42, Mean Corpuscular Volume 93, Mean Corpuscular Hemoglobin 32, Mean Corpuscular Hemoglobin Concent 34, Red Cell Distribution Width 13.1, Platelet Count 219, Mean Platelet Volume 9.9, Neutrophils (%) (Auto) 60, Lymphocytes (%) (Auto) 23, Monocytes (%) (Auto) 13, Eosinophils (%) (Auto) 4, Basophils (%) (Auto) 1, Neutrophils # (Auto) 5.3, Lymphocytes # (Auto) 2.0, Monocytes # (Auto) 1.1, Eosinophils # (Auto) 0.4, Basophils # (Auto) 0.1, Sodium Level 140, Potassium Level 3.6, Chloride Level 108, Carbon Dioxide Level 23, Anion Gap 9, Blood Urea Nitrogen 10, Creatinine 1.03, Estimat Glomerular Filtration Rate > 60, BUN/Creatinine Ratio 10, Glucose Level 100, Calcium Level 8.9 Other pending tests C diff PCR Imaging: Reviewed Imaging Report Discussion & Recommendations Discharge Planning: <30 minutes discharge planning Discharge Home Medications: Active Scripts Active Flagyl (Metronidazole) 500 Mg Tablet 500 Mg PO Q8H 5 Days Cefdinir 300 Mg Capsule 300 Mg PO BID 5 Days Condition at discharge Stable Instructions to patient/family Please see electronic discharge instructions given to patient. Clinical Quality Measures DVT/VTE Risk/Contraindication: Risk Factor Score Per Nursin RFS Level Per Nursing on Admit: 3=High Problem Qualifiers (1) Diverticulitis of intestine: Diverticulitis site: large intestine Diverticulitis bleeding: without bleeding Diverticulitis complication: without perforation or abscess Qualified Codes: K57.32 - Diverticulitis of large intestine without perforation or abscess without bleeding NICOL HALL MD May 11, 2019 13:56
[2019-05-11] MEDS ORDERED: metroNIDAZOLE 500MG/100ML IVPB 100 ML IV SCH (14:00)
[2019-05-11 14:48] VITALS: BP 134/87
== END 2019-05-11 14:48 | disposition home or self-care (01) | DRG 372 ==
LOC: EDUNIT# 10:03 → ER 10:04 → 4TH 13:10
PROVIDERS: ADMIT Family Medicine; ATTEND Family Medicine
DX: A04.72 Enterocolitis due to Clostridium difficile, not specified as recurrent (principal); K57.32 Diverticulitis of large intestine without perforation or abscess without bleeding; F17.210 Nicotine dependence, cigarettes, uncomplicated; Z87.442 Personal history of urinary calculi
CPT/HCPCS: 36415; 74177; 80048; 80053; 81000; 83735; 85007; 85025; 85027; 86141; 87015; 87045; 87046; 87324; 87328; 87329; 87449; 87493; 87899; 89055

== ENCOUNTER 2019-05-30 19:15 | Inpatient (IN) | payer BC ==
[~2019-05-30] VITALS: Ht 172.7 cm; Wt 106.7 kg
[~2019-05-30 19:15] MED LIST changes: +CEFD300C3 PO; +METR500T PO
[2019-05-30] MEDS ORDERED: LACTATED RINGERS 1,000 ML IV ONE (19:37)
[2019-05-30] MEDS ORDERED: fentaNYL INJECTION 100 MCG/2 ML AMP IVP STA ×2 (19:42→22:04)
[2019-05-30 19:44] LABS: BASOPHILS % (AUTO) 0 % (0-10); EOSINOPHILS # (AUTO) 0.3 10^3/uL (0.0-0.3); EOSINOPHILS % (AUTO) 2 % (0-10); HEMATOCRIT 45 % (40-54); LYMPHOCYTES # (AUTO) 2.4 X 10^3 (1.0-4.0); LYMPHOCYTES % (AUTO) 13 % (12-44); MEAN CORPUSCULAR HEMOGLOBIN 33 PG (25-34); MEAN CORPUSCULAR HGB CONC 36 G/DL (32-36); MEAN CORPUSCULAR VOLUME 91 FL (80-99); MEAN PLATELET VOLUME 10.1 FL (7.4-10.4); MONOCYTES # (AUTO) 1.6 X 10^3 (0.0-1.0); MONOCYTES % (AUTO) 9 % (0-12); NEUTROPHILS # (AUTO) 13.8 X 10^3 (1.8-7.8); NEUTROPHILS % (AUTO) 76 % (42-75); PLATELET COUNT 242 10^3/uL (130-400); RED CELL DISTRIBUTION WIDTH 13.5 % (10.0-14.5); WHITE BLOOD COUNT 18.2 10^3/uL (4.3-11.0)
--- NOTE | 2019-05-30 19:49 | ED Abdominal Pain ---
General Chief Complaint: Abdominal/GI Problems Stated Complaint: ABD PAIN Nursing Triage Note: lower abdominal pain x2 days, dc'd from hospital 05/11/19 for diverticulitis. Sepsis Screen: Possible Sepsis Risk Source of Information: Patient Exam Limitations: No Limitations (JOSHUA LIANG STUDENT) History of Present Illness Date Seen by Provider: May 30, 2019 Time Seen by Provider: 19:30 Initial Comments The patient is a WD/WN 43 y/o male who is here with a chief complaint of left lower abdominal pain. He reports that his symptoms began last week with diarrhea and intermittent pain that is now constant and at 8/10. He was treated outpatient 6 weeks ago for diverticulitis and was admitted 3 weeks ago for diverticulitis. He finished his last dose of oral antibiotics last week shortly before his symptoms began again. He reports have frequent diarrhea but now feels like he needs to have a bowel movement but cannot. His last bowel movement was yesterday. He denies nausea and vomiting. Physical exam was significant for left lower quadrant tenderness and significant rebound tenderness. Timing/Duration: 6-7 Days Severity/Quality: Severe, Aching, Full, Sharp Location: LLQ Associated Symptoms: No Chest Pain, No Nausea/Vomiting (JOSHUA LIANG STUDENT) Timing/Duration: 6-7 Days, Getting Worse Severity/Quality: Severe, Aching, Full Location: LLQ Radiation: No Radiation Activities at Onset: None Associated Symptoms: No Chest Pain, No Fever/Chills, No Nausea/Vomiting (AYAAN SALAS MD) Allergies and Home Medications Allergies Uncoded Allergies: ENVIRONMENTAL (Allergy, Mild, 06/06/09) Patient Home Medication List Home Medication List Reviewed: Yes (AYAAN SALAS MD) Review of Systems Review of Systems EENTM: No Blurred Vision, No Double Vision Respiratory: Denies Cough, Denies Shortness of Air Cardiovascular: Denies Chest Pain, Denies Lightheadedness Gastrointestinal: Abdominal Pain, Diarrhea (JOSHUA LIANG STUDENT) Constitutional: see HPI EENTM: No Symptoms Reported Respiratory: No Symptoms Reported Cardiovascular: Denies Chest Pain, Denies Lightheadedness Gastrointestinal: Abdominal Pain, Diarrhea; Denies Rectal Bleeding Genitourinary: No Symptoms Reported Musculoskeletal: back pain; No muscle pain Skin: no symptoms reported Psychiatric/Neurological: No Symptoms Reported (AYAAN SALAS MD) All Other Systems Reviewed Negative Unless Noted: Yes (AYAAN SALAS MD) Past Zrzyybj-Rthlyi-Twairm Hx Past Med/Social Hx: Reviewed Nursing Past Med/Soc Hx (AYAAN SALAS MD) Patient Social History Alcohol Use: Denies Use Recreational Drug Use: No Smoking Status: Current Everyday Smoker Type Used: Cigarettes 2nd Hand Smoke Exposure: Yes Recent Foreign Travel: No Contact w/Someone Who Travel: No Recent Infectious Disease Expo: No Recent Hopitalizations: Yes (rosalinda'd 05/11/19 diverticulitis) Physical Abuse: No Sexual Abuse: No Mistreated: No Fear: No (JOSHUA LIANG STUDENT) Immunizations Up To Date Tetanus Booster (TDap): Unknown (JOSHUA LIANG STUDENT) Seasonal Allergies Seasonal Allergies: No (JOSHUA LIANG) Past Medical History Surgeries: No Respiratory: No Cardiac: Yes Palpitations Neurological: No Reproductive Disorders: No Genitourinary: Yes Kidney Stones Gastrointestinal: Yes (diverticulitis) Diverticulosis Musculoskeletal: No Endocrine: No HEENT: No Cancer: No Psychosocial: No Integumentary: No Blood Disorders: No (JOSHUA LIANG STUDENT) Family Medical History Reviewed Nursing Family Hx (AYAAN SALAS MD) Diabetes, GI Disease (JOSHUA LIANG STUDENT) Physical Exam Vital Signs Vital Signs - First Documented 05/30/19 19:18 Temp 98.3 Pulse 132 Resp 20 B/P (MAP) 109/77 (88) Pulse Ox 95 O2 Delivery Room Air (AYAAN SALAS MD) Vital Signs Capillary Refill : Less Than 3 Seconds (JOSHUA LIANG STUDENT) Height/Weight/BMI Height: 5'8.00" Weight: 240lbs. 0.0oz. [id number]; 34.3 BMI Method:Stated General Appearance: WD/WN, mild distress HEENT: PERRL/EOMI; No photophobia Respiratory: chest non-tender, lungs clear, normal breath sounds, no respiratory distress Cardiovascular: no edema, no murmur, tachycardia Gastrointestinal: normal bowel sounds, rebound, tenderness Neurologic/Psychiatric: alert, normal mood/affect, oriented x 3 Skin: normal color, warm/dry (JOSHUA LIANG MED STUDENT) General Appearance: WD/WN, mild distress HEENT: PERRL/EOMI, pharynx normal Neck: full range of motion, supple Respiratory: lungs clear, normal breath sounds Cardiovascular: no murmur, tachycardia Gastrointestinal: normal bowel sounds; No distended; tenderness (left lower quadrant) Extremities: non-tender, normal inspection Back: normal inspection, no CVA tenderness, no vertebral tenderness Neurologic/Psychiatric: alert, oriented x 3 Skin: normal color, warm/dry (AYAAN SALAS MD) Focused Exam Lactate Level 05/30/19 19:26: Lactic Acid Level 1.12 (AYAAN SALAS MD) Lactic Acid Level Laboratory Tests Test 05/30/19 19:26 Lactic Acid Level 1.12 MMOL/L (0.50-2.00) (AYAAN SALAS MD) Progress/Results/Core Measures Results/Orders Lab Results Laboratory Tests Test 05/30/19 19:26 05/30/19 19:45 Range/Units White Blood Count 18.2 H 4.3-11.0 10^3/uL Red Blood Count 4.92 4.35-5.85 10^6/uL Hemoglobin 16.0 13.3-17.7 G/DL Hematocrit 45 40-54 % Mean Corpuscular Volume 91 80-99 FL Mean Corpuscular Hemoglobin 33 25-34 PG Mean Corpuscular Hemoglobin Concent 36 32-36 G/DL Red Cell Distribution Width 13.5 10.0-14.5 % Platelet Count 242 130-400 10^3/uL Mean Platelet Volume 10.1 7.4-10.4 FL Neutrophils (%) (Auto) 76 H 42-75 % Lymphocytes (%) (Auto) 13 12-44 % Monocytes (%) (Auto) 9 0-12 % Eosinophils (%) (Auto) 2 0-10 % Basophils (%) (Auto) 0 0-10 % Neutrophils # (Auto) 13.8 H 1.8-7.8 X 10^3 Lymphocytes # (Auto) 2.4 1.0-4.0 X 10^3 Monocytes # (Auto) 1.6 H 0.0-1.0 X 10^3 Eosinophils # (Auto) 0.3 0.0-0.3 10^3/uL Basophils # (Auto) 0.0 0.0-0.1 10^3/uL Neutrophils % (Manual) 73 % Lymphocytes % (Manual) 14 % Monocytes % (Manual) 8 % Eosinophils % (Manual) 3 % Band Neutrophils 2 % Blood Morphology Comment NORMAL Prothrombin Time 13.6 12.2-14.7 SEC INR Comment 1.0 0.8-1.4 Activated Partial Thromboplast Time 32 24-35 SEC Sodium Level 140 135-145 MMOL/L Potassium Level 3.2 L 3.6-5.0 MMOL/L Chloride Level 109 H 98-107 MMOL/L Carbon Dioxide Level 19 L 21-32 MMOL/L Anion Gap 12 5-14 MMOL/L Blood Urea Nitrogen 6 L 7-18 MG/DL Creatinine 0.90 0.60-1.30 MG/DL Estimat Glomerular Filtration Rate > 60 BUN/Creatinine Ratio 7 Glucose Level 115 H 70-105 MG/DL Lactic Acid Level 1.12 0.50-2.00 MMOL/L Calcium Level 9.3 8.5-10.1 MG/DL Corrected Calcium 9.1 8.5-10.1 MG/DL Total Bilirubin 0.7 0.1-1.0 MG/DL Aspartate Amino Transf (AST/SGOT) 21 5-34 U/L Alanine Aminotransferase (ALT/SGPT) 32 0-55 U/L Alkaline Phosphatase 68 40-136 U/L Total Protein 7.2 6.4-8.2 GM/DL Albumin 4.3 3.2-4.5 GM/DL Urine Color YELLOW Urine Clarity CLEAR Urine pH 6 5-9 Urine Specific [place] 1.020 1.016-1.022 Urine Protein 2+ H NEGATIVE Urine Glucose (UA) NEGATIVE NEGATIVE Urine Ketones 1+ H NEGATIVE Urine Nitrite NEGATIVE NEGATIVE Urine Bilirubin 1+ H NEGATIVE Urine Urobilinogen NORMAL NORMAL MG/DL Urine Leukocyte Esterase 1+ H NEGATIVE Urine RBC (Auto) 2+ H NEGATIVE Urine RBC 0-2 /HPF Urine WBC 2-5 /HPF Urine Squamous Epithelial Cells 0-2 /HPF Urine Crystals NONE /LPF Urine Bacteria FEW H /HPF Urine Casts PRESENT /LPF Urine Hyaline Casts 2-5 H /LPF Urine Mucus LARGE H /LPF Urine Culture Indicated CULTURE PENDING (AYAAN SALAS MD) My Orders Orders - AYAAN SALAS MD Cbc With Automated Diff (05/30/19 19:37) Comprehensive Metabolic Panel (05/30/19 19:37) Blood Culture (05/30/19 19:37) Sputum Culture (05/30/19 19:37) Urinalysis (05/30/19 19:37) Urine Culture (05/30/19 19:37) Protime With Inr (05/30/19 19:37) Partial Thromboplastin Time (05/30/19 19:37) Chest 1 View, Ap/Pa Only (05/30/19 19:37) Ed Iv/Invasive Line Start (05/30/19 19:37) Vital Signs Adult Sepsis Patie Q15M (05/30/19 19:37) O2 (05/30/19 19:37) Remove Rings In Anticipation O (05/30/19 19:37) Lactic Acid Analyzer (05/30/19 19:37) Lactated Ringers (Lr 1000 Ml Iv Solution (05/30/19 19:37) Fentanyl Injection (Sublimaze Injection (05/30/19 19:42) Manual Differential (05/30/19 19:26) Ct Abdomen/Pelvis W (05/30/19 20:16) Fentanyl Injection (Sublimaze Injection (05/30/19 22:04) (AYAAN SALAS MD) Medications Given in ED Current Medications Medications Dose Ordered Sig/Dorita Route Start Time Stop Time Status Last Admin Dose Admin Lactated Ringer's 1,000 ml @ 0 mls/hr Q0M ONCE IV 05/30/19 19:37 05/30/19 19:39 DC 05/30/19 19:45 0 MLS/HR (AYAAN SALAS MD) Vital Signs/I&O 05/30/19 05/30/19 05/30/19 19:18 19:26 19:57 Temp 98.3 98.5 Pulse 132 103 Resp 20 9 B/P (MAP) 109/77 (88) 96/70 Pulse Ox 95 95 94 O2 Delivery Room Air Room Air Room Air (AYAAN SALAS MD) Blood Pressure Mean: 88 Progress Progress Note : Time: 19:50 Progress Note The patient is resting in the exam room with moderate discomfort. He will ad ministered fentanyl for pain control. Initial evaluation with CBC, CMP, Coags, lactic, UA, and cultures for suspected diverticulitis/peritonitis/sepsis. (JOSHUA LIANG MED STUDENT) Progress Note : Progress Note I have seen and evaluated the patient and agree with above except as indicated. I have directed the plan of care. Patient is here with increasing diarrhea towards another week but no bowel movement since yesterday. States he feels like he has to have a bowel movement but can't. Denies blood in his stool. Does have history of diverticulitis and C. difficile colitis. Completed his antibiotics. He is supposed to be on probiotics and takes those most of the time. Pain is much worse today and intolerable this evening. IV, labs, UA, LR 1 L bolus and fentanyl 50 g IV ordered. Pending CT abdomen and pelvis. 10/24/07: CT complete. Pain continues and repeat dosing with fentanyl 75 g IV. We will continue IV fluids. Patient does have findings of diverticulitis as well as multiple loops of bowel with fluid. Is concerning for diverticulitis return. I did discuss the case with Dr. Scott and he accepts patient for admission, inpatient status. We are currently awaiting bed on the floor and patient will be hold initially in the emergency department until bed opens. This was discussed with patient and family who agree. (AYAAN SALAS MD) Progress Note : Time: 07:35 Progress Note Assume care of the patient at shift change. He was up having another bowel movement and his pain is starting to return. He says the pain medicine works very well but only lasts about 3-4 hours which would be appropriate for Dilaudid. We will re-dose him with 0.5 mg of Dilaudid IV. He is not having any nausea and his vitals are still acceptable. He has remaining in waiting for a bed to open up. (JEFFREY LEROY) Diagnostic Imaging Diagonstic Imaging: Xray Plain Films/CT/US/NM/MRI: chest Comments NAME: DELFINO CLEARY [facility] REC#: [id number] PT STATUS: REG ER : 1975 PHYSICIAN: AYAAN SALAS MD ADMIT DATE: 05/30/19/ER Signed Date of Exam: 05/30/19 CHEST 1 VIEW, AP/PA ONLY EXAMINATION: Single view of the chest. INDICATION: Abdominal pain. FINDINGS: Lungs demonstrate no focal infiltrate or consolidation. There is no effusion. There is no pneumothorax. Heart size and mediastinal contours appear appropriate and pulmonary vascularity appears normal. There is no acute or suspicious osseous abnormality. No free air evident below the diaphragms. IMPRESSION: 1. No radiographic evidence of an acute cardiopulmonary process. 2. No evidence of free air. Dictated by: Dictated on workstation # [id number] Dict: 05/30/192006 Trans: 05/30/192013 Interpreted by: MARIELLE LOREDO MD Electronically signed by: MARIELLE LOREDO MD 05/30/192013 Diagonstic Imaging: CT Plain Films/CT/US/NM/MRI: abdomen, pelvis Comments NAME: EDLFINO CLEARY [facility] REC#: [id number] PT STATUS: REG ER : 1975 PHYSICIAN: AYAAN SALAS MD ADMIT DATE: 05/30/19/ER Signed Date of Exam: 05/30/19 CT ABDOMEN/PELVIS W PROCEDURE: CT abdomen and pelvis with contrast. TECHNIQUE: Multiple contiguous axial images were obtained through the abdomen and pelvis after administration of intravenous contrast. Auto Exposure Controls were utilized during the CT exam to meet ALARA standards for radiation dose reduction. INDICATION: Low abdominal pain. History of diverticulitis. COMPARISON: Prior study from 05/09/2019. FINDINGS: Lung bases demonstrate no consolidation or evidence of an effusion. The liver demonstrates a stable hypodensity which is most suggestive of a cyst. The gallbladder is nondistended without radiodense gallstones or biliary dilatation. Portal veins appear patent. The spleen is normal in size. Some slight thickening of the left adrenal gland is stable. Right adrenal gland is unremarkable. Kidneys enhance normally and are nonobstructed. The pancreas is unremarkable. On the prior examination, there was acute diverticulitis at the junction of the sigmoid colon and left colon. There are diverticula in this region and there is some mild residual thickening but this overall process has significantly improved. There are a few fluid-filled loops of nondilated small bowel and there does appear to be some liquid stool within the right colon and transverse colon. The appendix is normal. There are no findings of abscess. There is no free air. There is no free fluid. Urinary bladder is unremarkable. No pathologically enlarged lymph node is evident. The aorta is normal in caliber. IMPRESSION: 1. Mild residual thickening demonstrated of the left colon and sigmoid junction with associated diverticula. This is significantly improved from the prior comparison exam. 2. No evidence of bowel obstruction. 3. A few fluid-filled loops of nondilated small bowel as well as apparent liquid stool within the right colon. This can relate to an enteritis or diarrheal illness. 4. Otherwise stable CT abdomen and pelvis. Dictated by: Dictated on workstation # [id number] Dict: 05/30/192056 Trans: 05/30/192119 Interpreted by: MARIELLE LOREDO MD Electronically signed by: MARIELLE LOREDO MD 05/30/192119 (AYAAN SALAS MD) Departure Impression Primary Impression: Diverticulitis of intestine Qualified Codes: K57.32 - Diverticulitis of large intestine without perforation or abscess without bleeding Disposition: ADMITTED INPATIENT Condition: Stable Admissions Decision to Admit Reason: Admit from ER (General) Decision to Admit/Date: May 30, 2019 Time/Decision to Admit Time: 22:08 (AYAAN SALAS MD) Departure-Patient Inst. Referrals: NO,LOCAL PHYSICIAN (PCP/Family) Primary Care Physician JOSHUA LIANG MED STUDENT May 30, 2019 19:49 AYAAN SALAS MD May 30, 2019 21:56 JEFFREY LEROY May 31, 2019 07:35
[2019-05-30 19:50] LABS: PROTHROMBIN TIME PATIENT 13.6 SEC (12.2-14.7)
[2019-05-30 19:56] LABS: BILIRUBIN,URINE 1+ (NEGATIVE); CLARITY,URINE CLEAR; COLOR,URINE YELLOW; GLUCOSE, URINE (UA) NEGATIVE (NEGATIVE); KETONES,URINE 1+ (NEGATIVE); LEUKOCYTE ESTERASE ,URINE 1+ (NEGATIVE); NITRITE,URINE NEGATIVE (NEGATIVE); PH,URINE 6 (5-9); PROTEIN,URINE 2+ (NEGATIVE); UROBILINOGEN,URINE NORMAL (NORMAL)
[2019-05-30 20:02] LABS: ALANINE AMINOTRANSFERASE 32 U/L (0-55); ALBUMIN 4.3 GM/DL (3.2-4.5); ALKALINE PHOSPHATASE 68 U/L (40-136); BILIRUBIN,TOTAL 0.7 MG/DL (0.1-1.0); BUN/CREATININE RATIO 7; CALCIUM 9.3 MG/DL (8.5-10.1); CARBON DIOXIDE 19 MMOL/L (21-32); CHLORIDE 109 MMOL/L (98-107); GFR ESTIMATED > 60; GLUCOSE 115 MG/DL (70-105); POTASSIUM 3.2 MMOL/L (3.6-5.0); SODIUM 140 MMOL/L (135-145); TOTAL PROTEIN 7.2 GM/DL (6.4-8.2)
[2019-05-30 20:08] LABS: BACTERIA,URINE FEW /HPF; RBC,URINE 0-2 /HPF; SQUAMOUS EPITHELIAL CELL,UR 0-2 /HPF
--- NOTE | 2019-05-30 20:11 | Diagnostic Imaging Report ---
EXAMINATION: Single view of the chest. INDICATION: Abdominal pain. FINDINGS: Lungs demonstrate no focal infiltrate or consolidation. There is no effusion. There is no pneumothorax. Heart size and mediastinal contours appear appropriate and pulmonary vascularity appears normal. There is no acute or suspicious osseous abnormality. No free air evident below the diaphragms. IMPRESSION: 1. No radiographic evidence of an acute cardiopulmonary process. 2. No evidence of free air. Dictated by: Dictated on workstation # [id number]
[2019-05-30 20:20] LABS: BAND NEUTROPHILS 2 %; EOSINOPHILS % (MANUAL) 3 %; LYMPHOCYTES % (MANUAL) 14 %; MONOCYTES % (MANUAL) 8 %; NEUTROPHILS % (MANUAL) 73 %; RBC MORPH NORMAL
--- NOTE | 2019-05-30 21:14 | Diagnostic Imaging Report ---
PROCEDURE: CT abdomen and pelvis with contrast. TECHNIQUE: Multiple contiguous axial images were obtained through the abdomen and pelvis after administration of intravenous contrast. Auto Exposure Controls were utilized during the CT exam to meet ALARA standards for radiation dose reduction. INDICATION: Low abdominal pain. History of diverticulitis. COMPARISON: Prior study from 05/09/2019. FINDINGS: Lung bases demonstrate no consolidation or evidence of an effusion. The liver demonstrates a stable hypodensity which is most suggestive of a cyst. The gallbladder is nondistended without radiodense gallstones or biliary dilatation. Portal veins appear patent. The spleen is normal in size. Some slight thickening of the left adrenal gland is stable. Right adrenal gland is unremarkable. Kidneys enhance normally and are nonobstructed. The pancreas is unremarkable. On the prior examination, there was acute diverticulitis at the junction of the sigmoid colon and left colon. There are diverticula in this region and there is some mild residual thickening but this overall process has significantly improved. There are a few fluid-filled loops of nondilated small bowel and there does appear to be some liquid stool within the right colon and transverse colon. The appendix is normal. There are no findings of abscess. There is no free air. There is no free fluid. Urinary bladder is unremarkable. No pathologically enlarged lymph node is evident. The aorta is normal in caliber. IMPRESSION: 1. Mild residual thickening demonstrated of the left colon and sigmoid junction with associated diverticula. This is significantly improved from the prior comparison exam. 2. No evidence of bowel obstruction. 3. A few fluid-filled loops of nondilated small bowel as well as apparent liquid stool within the right colon. This can relate to an enteritis or diarrheal illness. 4. Otherwise stable CT abdomen and pelvis. Dictated by: Dictated on workstation # [id number]
[2019-05-30] MEDS ORDERED: NS IV 1000 ML 1,000 ML IV SCH (23:15)
--- NOTE | 2019-05-31 01:21 | NUR ---
pt up ambulating to restroom, denies needs.
[2019-05-31] MEDS ORDERED: HYDROmorphone 2 MG/ML VIAL (DILAUDID) IV ONE ×3 (01:30→07:45)
[2019-05-31 08:10] VITALS: BP 111/72
[2019-05-31] MEDS ORDERED: ONDANSETRON 4 MG/2 ML (SDV) Z0FRAN IV PRN (08:30)
[2019-05-31] MEDS: NS IV 1000 ML 1,000 ML IV SCH ×3 (08:37→23:12)
--- NOTE | 2019-05-31 08:47 | NUR ---
DELFINO CLEARY admitted to room 423-1, with an admitting diagnosis of diverticulitis, intractable LLQ abdominal pain, on 05/30/19 from [facility], accompanied by staff.DELFINO CLEARY introduced to surroundings, call light, bed controls, phone, TV, temperature control, lights, meal times, smoking policy, visitor policy, side rail policy, bathrooms and showers. DELFINO Preciado verbalizes understanding that [facility] is not responsible for the loss or damage to any personal effects or valuables that are kept in the patients posession during their hospitalization. Patient and/or family were informed about the Rapid Response Team and its purpose.
[2019-05-31] MEDS ORDERED: L.AC1CAP6 PO (09:22)
--- NOTE | 2019-05-31 09:23 | NUR ---
PATIENT STATES HE IS NOT TAKING ANY PRESCRIPTION MEDICATIONS, HE HAS BEEN TAKING A DAILY PROBIOTIC RECENTLY OTC.
[2019-05-31] MEDS: fentaNYL INJECTION 100 MCG/2 ML AMP IV PRN (10:04)
[2019-05-31 11:20] VITALS: BP 80/64
--- NOTE | 2019-05-31 11:21 | History & Physical-Surgical ---
INA URIOSTEGUI, 05/31/19 1121: History of Present Illness History of Present Illness Reason for visit/HPI CC: abdominal pain HPI: Pt presented to ER regarding LLQ pain. Hx of diverticulitis 7 years ago and had flare 6 weeks ago. Went to [facility] clinic and received Ciprofloxacin and Flagyl. 3 weeks later, was inpt at [facility] for diarrhea and had positive C. diff antigens, but negative toxins. Sent home on Vancomycin, Cefdinir, and Flagyl. Pt took all home medications and was feeling better until Friday (05/29) when he had pain and diarrhea. Pt states he feels like he needs to have a BM but nothing is there. Pt localizes the pain to LLQ, rates it a 7/10 on pain scale and characterizes as needing to "push a camille of concrete out". Having a BM relieves the pressure but does not help the pain. Not having a BM when he has the urge along with excessive sitting worsens the pain. Denies nausea and vomiting, confirms diarrhea, and is unsure about constipation. Pt states he feels constipated since he hasn't been going every time he as an urge, but when he does go, it is diarrhea. Confirms hematochezia and believes it is from hemorrhoids. He has never had a workup regarding the red blood in his stool. Denies hematemesis and melena. Date of Admission May 30, 2019 at 23:12 Date Seen by a Provider: May 31, 2019 Time Seen by a Provider: 09:26 I consulted on this patient on 05/31/19 11:16 Attending Physician Dedrick Scott DO Admitting Physician No,Local Physician Consult Allergies and Home Medications Allergies Uncoded Allergies: ENVIRONMENTAL (Allergy, Mild, 06/06/09) Home Medications L.acidoph & Paracasei,B.lactis 1 Each Capsule, 1 CAP PO DAILY, (Reported) Patient Home Medication List Home Medication List Reviewed: Yes Past Bzweftg-Pfrpke-Ltcbrl Hx Patient Social History Alcohol Use: Denies Use Recreational Drug Use: No Smoking Status: Current Everyday Smoker (1.5 packs/day for 24 years) Type Used: Cigarettes 2nd Hand Smoke Exposure: Yes Recent Foreign Travel: No Contact w/Someone Who Travel: No Recent Infectious Disease Expo: No Recent Hopitalizations: Yes (dc'd 05/11/19 diverticulitis) Immunizations Up To Date Tetanus Booster (TDap): Unknown Seasonal Allergies Seasonal Allergies: No Surgeries History of Surgeries: No Respiratory History of Respiratory Disorde: No Cardiovascular History of Cardiac Disorders: Yes Cardiac Disorders: Palpitations Neurological History of Neurological Disord: No Reproductive System Hx Reproductive Disorders: No Genitourinary History of Genitourinary Disor: Yes Genitourinary Disorders: Kidney Stones Gastrointestinal History of Gastrointestinal Di: Yes (diverticulitis) Gastrointestinal Disorders: Diverticulosis Musculoskeletal History of Musculoskeletal Dis: No Endocrine History of Endocrine Disorders: No HEENT History of HEENT Disorders: No Cancer History of Cancer: No Psychosocial History of Psychiatric Problem: No Integumentary History of Skin or Integumenta: No Blood Transfusions History of Blood Disorders: No Family Medical History Significant Family History: Cancer (maternal grandmother had pancreatic cancer, dx and in late 70s), Diabetes (paternal grandfather), GI Disease Review of Systems Constitutional: No chills, No fever; weight loss (30# in 1 mo, pt believes water weight) EENTM: No hearing loss, No vision loss Cardiovascular: palpitations (in high stress situations, has not been worked up regarding palpitations) Gastrointestinal: abdominal pain; No constipation; diarrhea; No hematemesis, No melena, No nausea Genitourinary: No dysuria, No frequency, No hematuria; hesitancy Musculoskeletal: No muscle pain, No muscle weakness Skin: No lesions, No rash Psychiatric/Neurological: Denies Anxiety, Denies Depressed, Denies Numbness, Denies Pre-Existing Deficit, Denies Tingling Physical Exam Vital Signs Vital Signs - First Documented 05/30/19 05/31/19 19:18 01:38 Temp [id number] Pulse 132 Resp 20 B/P (MAP) 109/77 (88) Pulse Ox 95 O2 Delivery Room Air O2 Flow Rate 2.00 Capillary Refill : Less Than 3 Seconds Height, Weight, BMI Height: 5'8.00" Weight: 235lbs. 4.0oz. [id number]; 35.8 BMI Method:Stated General Appearance: WD/WN, Mild Distress Eyes: Bilateral Eye PERRL, Bilateral Eye EOMI HEENT: Pharynx Normal; No Pale Conjunctivae (L), No Pale Conjunctivae (R) Neck: Non Tender, Supple Respiratory: Chest Non Tender, No Accessory Muscle Use, No Respiratory Distress, Crackles Cardiovascular: Regular Rate, Rhythm, No Murmur Gastrointestinal: Normal Bowel Sounds, Guarding, Tenderness Rectal: Deferred Back: Normal Inspection, No CVA Tenderness Extremity: Normal Inspection, No Calf Tenderness, No Pedal Edema Neurologic/Psychiatric: Alert, Oriented x3 Skin: Normal Color, Warm/Dry Lymphatic: No Adenopathy Data Review Labs Laboratory Tests 05/30/19 19:26: White Blood Count 18.2H, Red Blood Count 4.92, Hemoglobin 16.0, Hematocrit 45, Mean Corpuscular Volume 91, Mean Corpuscular Hemoglobin 33, Mean Corpuscular Hemoglobin Concent 36, Red Cell Distribution Width 13.5, Platelet Count 242, Mean Platelet Volume 10.1, Neutrophils (%) (Auto) 76H, Lymphocytes (%) (Auto) 13, Monocytes (%) (Auto) 9, Eosinophils (%) (Auto) 2, Basophils (%) (Auto) 0, Neutrophils # (Auto) 13.8H, Lymphocytes # (Auto) 2.4, Monocytes # (Auto) 1.6H, Eosinophils # (Auto) 0.3, Basophils # (Auto) 0.0, Neutrophils % (Manual) 73, Lymphocytes % (Manual) 14, Monocytes % (Manual) 8, Eosinophils % (Manual) 3, Band Neutrophils 2, Blood Morphology Comment NORMAL, Prothrombin Time 13.6, INR Comment 1.0, Activated Partial Thromboplast Time 32, Sodium Level 140, Potassium Level 3.2L, Chloride Level 109H, Carbon Dioxide Level 19L, Anion Gap 12, Blood Urea Nitrogen 6L, Creatinine 0.90, Estimat Glomerular Filtration Rate > 60, BUN/Creatinine Ratio 7, Glucose Level 115H, Lactic Acid Level 1.12, Calcium Level 9.3, Corrected Calcium 9.1, Total Bilirubin 0.7, Aspartate Amino Transf (AST/SGOT) 21, Alanine Aminotransferase (ALT/SGPT) 32, Alkaline Phosphatase 68, Total Protein 7.2, Albumin 4.3 05/30/19 19:45: Urine Color YELLOW, Urine Clarity CLEAR, Urine pH 6, Urine Specific [place] 1.020, Urine Protein 2+H, Urine Glucose (UA) NEGATIVE, Urine Ketones 1+H, Urine Nitrite NEGATIVE, Urine Bilirubin 1+H, Urine Urobilinogen NORMAL, Urine Leukocyte Esterase 1+H, Urine RBC (Auto) 2+H, Urine RBC 0-2, Urine WBC 2-5, Urine Squamous Epithelial Cells 0-2, Urine Crystals NONE, Urine Bacteria FEWH, Urine Casts PRESENT, Urine Hyaline Casts 2-5H, Urine Mucus LARGEH, Urine Culture Indicated CULTURE PENDING Assessment/Plan Assessment/Plan Assessment/Plan Diverticulitis Lifelong tobacco use Plan is to start IV abx and discuss possible diet changes to improve symptoms. Also, pain medications and IVF will be started. Continue NPO until pain decreases and is tolerable. Advance diet as tolerated. Clinical Quality Measures DVT/VTE Risk/Contraindication: Risk Factor Score Per Nursin RFS Level Per Nursing on Admit: 2=Moderate DEDRICK SCOTT DO 06/01/19 1054: History of Present Illness History of Present Illness Reason for visit/HPI Pt said his main complaint is of the pain, no diarrhea; actually hasnt had BM in a day or so. Time Seen by a Provider: 12:32 Allergies and Home Medications Allergies Uncoded Allergies: ENVIRONMENTAL (Allergy, Mild, 06/06/09) Home Medications L.acidoph & Paracasei,B.lactis 1 Each Capsule, 1 CAP PO DAILY, (Reported) Review of Systems Respiratory: No cough, No dyspnea on exertion, No short of breath pt denies any hx of abnormal bruising or bleeding Physical Exam Lymphatic: No Adenopathy (neck, axilla or groin) Assessment/Plan Assessment/Plan Admission Diagonsis Abdominal Pain Hx of Diverticulitis Indeterminate C. diff ??Viral Gastroenteritis Admission Status: Inpatient Order (span 2 midnights) Reason for Inpatient Admission: Pt has abd pain and elevated WBC, unsure what treamtent or how long it will be. NPO for a day and then slowly advance....will take longer than 2 midnights. Assessment/Plan Abdominal Pain Hx of Diverticulitis Indeterminate C. diff ??Viral Gastroenteritis Pt pain was mostly controlled and he was hungry. I told him I wanted to wait one more day before we start food. I think the CT looks more like a viral gastroenteritis than diverticulitis. He may need colonoscopy sooner than later. Supervisory-Addendum Brief Verification & Attestation Participated in pt care: history, MDM, physical Personally performed: exam, MDM Care discussed with: Medical Student Procedures: n/a Verification and Attestation of Medical Student E/M Service A medical student performed and documented this service in my presence. I reviewed and verified all information documented by the medical student and made modifications to such information, when appropriate. I personally performed the physical exam and medical decision making. Dedrick Scott, Jun 01, 2019,11:08 INA URIOSTEGUI, May 31, 2019 11:21 DEDRICK SCOTT DO Jun 01, 2019 10:54
[2019-05-31] MEDS: HYDROmorphone 2 MG/ML VIAL (DILAUDID) IV PRN ×4 (11:53→23:12)
[2019-05-31 12:00] VITALS: BP 141/76
--- NOTE | 2019-05-31 14:10 | NUR ---
Pastoral care visit.
[2019-05-31 14:19] LABS: BASOPHILS % (AUTO) 0 % (0-10); EOSINOPHILS # (AUTO) 0.2 10^3/uL (0.0-0.3); EOSINOPHILS % (AUTO) 1 % (0-10); HEMATOCRIT 43 % (40-54); HEMOGLOBIN 14.7 G/DL (13.3-17.7); LYMPHOCYTES # (AUTO) 1.7 X 10^3 (1.0-4.0); LYMPHOCYTES % (AUTO) 12 % (12-44); MEAN CORPUSCULAR HEMOGLOBIN 32 PG (25-34); MEAN CORPUSCULAR HGB CONC 35 G/DL (32-36); MEAN CORPUSCULAR VOLUME 94 FL (80-99); MONOCYTES # (AUTO) 1.7 X 10^3 (0.0-1.0); MONOCYTES % (AUTO) 12 % (0-12); NEUTROPHILS # (AUTO) 10.8 X 10^3 (1.8-7.8); NEUTROPHILS % (AUTO) 75 % (42-75); PLATELET COUNT 195 10^3/uL (130-400); RED CELL DISTRIBUTION WIDTH 13.8 % (10.0-14.5); WHITE BLOOD COUNT 14.4 10^3/uL (4.3-11.0)
[2019-05-31 14:43] LABS: BUN/CREATININE RATIO 9; CALCIUM 9.4 MG/DL (8.5-10.1); CARBON DIOXIDE 21 MMOL/L (21-32); CHLORIDE 110 MMOL/L (98-107); CREATININE SERUM 0.89 MG/DL (0.60-1.30); GFR ESTIMATED > 60; GLUCOSE 93 MG/DL (70-105); POTASSIUM 3.3 MMOL/L (3.6-5.0); SODIUM 143 MMOL/L (135-145)
[2019-05-31 16:00] VITALS: BP 129/77
[2019-05-31 20:02] VITALS: BP 117/62
[2019-06-01] VITALS: BP 111/69
[2019-06-01 04:00] VITALS: BP 99/64
[2019-06-01 06:02] LABS: BASOPHILS % (AUTO) 0 % (0-10); EOSINOPHILS # (AUTO) 0.4 10^3/uL (0.0-0.3); EOSINOPHILS % (AUTO) 3 % (0-10); HEMATOCRIT 43 % (40-54); HEMOGLOBIN 14.4 G/DL (13.3-17.7); LYMPHOCYTES # (AUTO) 2.8 X 10^3 (1.0-4.0); LYMPHOCYTES % (AUTO) 24 % (12-44); MEAN CORPUSCULAR HEMOGLOBIN 32 PG (25-34); MEAN CORPUSCULAR HGB CONC 34 G/DL (32-36); MEAN CORPUSCULAR VOLUME 94 FL (80-99); MEAN PLATELET VOLUME 10.4 FL (7.4-10.4); MONOCYTES # (AUTO) 1.8 X 10^3 (0.0-1.0); MONOCYTES % (AUTO) 15 % (0-12); NEUTROPHILS # (AUTO) 6.9 X 10^3 (1.8-7.8); NEUTROPHILS % (AUTO) 58 % (42-75); PLATELET COUNT 223 10^3/uL (130-400); RED CELL DISTRIBUTION WIDTH 13.9 % (10.0-14.5); WHITE BLOOD COUNT 11.9 10^3/uL (4.3-11.0)
[2019-06-01 06:24] LABS: ALANINE AMINOTRANSFERASE 24 U/L (0-55); ALBUMIN 3.8 GM/DL (3.2-4.5); ALKALINE PHOSPHATASE 65 U/L (40-136); BUN/CREATININE RATIO 10; CARBON DIOXIDE 20 MMOL/L (21-32); CHLORIDE 112 MMOL/L (98-107); GFR ESTIMATED > 60; GLUCOSE 84 MG/DL (70-105); POTASSIUM 3.3 MMOL/L (3.6-5.0); SODIUM 143 MMOL/L (135-145); TOTAL PROTEIN 6.4 GM/DL (6.4-8.2)
[2019-06-01 08:00] VITALS: BP 125/72
[2019-06-01] MEDS: fentaNYL INJECTION 100 MCG/2 ML AMP IV PRN (10:27)
[2019-06-01] MEDS: NS IV 1000 ML 1,000 ML IV SCH ×4 (11:35→22:35)
[2019-06-01 11:56] VITALS: BP 117/65
[2019-06-01 15:45] VITALS: BP 107/66
--- NOTE | 2019-06-01 16:13 | Progress Note - Surgery ---
Subjective Time Seen by a Provider: 12:55 Subjective/Events-last exam Pt seen and examined, states his abdominal pain is a little better. He had multiple BM's; all watery. He is hungry. Review of Systems General: No Chills, No Night Sweats Pulmonary: No Dyspnea, No Cough Cardiovascular: No: Chest Pain, Palpitations Gastrointestinal: Abdominal Pain (minimal); No: Nausea, Vomiting Focused Exam Lactate Level 05/30/19 19:26: Lactic Acid Level 1.12 Objective Exam Vital Signs Date Time Temp Pulse Resp B/P (MAP) Pulse Ox O2 Delivery O2 Flow Rate FiO2 06/01/19 15:45 36.6 82 18 107/66 94 Room Air 06/01/19 11:56 36.5 82 18 117/65 96 Room Air 06/01/19 08:00 36.5 87 20 125/72 95 Room Air 06/01/19 08:00 Room Air 06/01/19 04:00 36.0 98 20 99/64 96 Room Air 06/01/19 00:00 37.0 92 18 111/69 92 Room Air 05/31/19 20:02 37.0 100 18 117/62 92 Room Air 05/31/19 20:00 Room Air I & O 06/01/19 07:00 Intake Total 1000 ml Balance 1000 ml Capillary Refill : Less Than 3 SecondsLess Than 3 Seconds General Appearance: No Apparent Distress, WD/WN HEENT: Pharynx Normal; No Pale Conjunctivae (L), No Pale Conjunctivae (R) Neck: Non Tender, Supple Respiratory: Chest Non Tender, Normal Breath Sounds, No Accessory Muscle Use, No Respiratory Distress Cardiovascular: Regular Rate, Rhythm, No Murmur Gastrointestinal: normal bowel sounds; No distended; tenderness (left lower quadrant -very minimal) Extremity: Normal Inspection, No Calf Tenderness, No Pedal Edema Neurologic/Psychiatric: Alert, Oriented x3 Skin: Normal Color, Warm/Dry Results Lab Laboratory Tests 06/01/19 05:20: White Blood Count 11.9H, Red Blood Count 4.53, Hemoglobin 14.4, Hematocrit 43, Mean Corpuscular Volume 94, Mean Corpuscular Hemoglobin 32, Mean Corpuscular Hemoglobin Concent 34, Red Cell Distribution Width 13.9, Platelet Count 223, Mean Platelet Volume 10.4, Neutrophils (%) (Auto) 58, Lymphocytes (%) (Auto) 24, Monocytes (%) (Auto) 15H, Eosinophils (%) (Auto) 3, Basophils (%) (Auto) 0, Neutrophils # (Auto) 6.9, Lymphocytes # (Auto) 2.8, Monocytes # (Auto) 1.8H, Eosinophils # (Auto) 0.4H, Basophils # (Auto) 0.0, Sodium Level 143, Potassium Level 3.3L, Chloride Level 112H, Carbon Dioxide Level 20L, Anion Gap 11, Blood Urea Nitrogen 8, Creatinine 0.80, Estimat Glomerular Filtration Rate > 60, BUN/Creatinine Ratio 10, Glucose Level 84, Calcium Level 9.0, Corrected Calcium 9.2, Total Bilirubin 1.0, Aspartate Amino Transf (AST/SGOT) 13, Alanine Aminotransferase (ALT/SGPT) 24, Alkaline Phosphatase 65, Total Protein 6.4, Albumin 3.8 Microbiology 05/30/19 Blood Culture - Preliminary, Resulted No growth 05/30/19 Urine Culture - Final, Complete NO GROWTH Assessment/Plan Assessment/Plan Assessment/Plan Abdominal Pain Hx of Diverticulitis Indeterminate C. diff ??Viral Gastroenteritis Will advance to soft diet and recheck labs. Pt will probably need colonoscopy sooner; we were going to wait until he healed more. Clinical Quality Measures DVT/VTE Risk/Contraindication: Risk Factor Score Per Nursin RFS Level Per Nursing on Admit: 2=Moderate JOHN MARROQUIN DO Jun 01, 2019 16:13
[2019-06-01 20:00] VITALS: BP 124/81
[2019-06-02] VITALS: BP 103/57
[2019-06-02] MEDS: NS IV 1000 ML 1,000 ML IV SCH ×2 (06:19→16:28)
[2019-06-02 08:00] VITALS: BP 117/74
--- NOTE | 2019-06-02 08:58 | NUR ---
DentLight system down from [phone]
[2019-06-02] MEDS: KCL 20 MEQ POWDER FOR ORAL SOLUTION PO SCH ×2 (09:48→17:45)
--- NOTE | 2019-06-02 13:57 | Progress Note - Surgery ---
INA URIOSTEGUI, 06/02/19 1357: Subjective Date Seen by a Provider: Jun 02, 2019 Time Seen by a Provider: 13:42 Subjective/Events-last exam Pt eating lunch during interview. Pt denies nausea, hematemesis, melena, or hematochezia. States he is feeling better. No pain in abdomen now and time between BM is lengthening to 3-4 hours. Passing lots of flatus. Still having "mushy" stools. No complaints. Pt states he wants to feel better and do anything he can to not have this again. Wanting to shower and hopes that will improve how he is feeling also. Review of Systems General: No Chills, No Night Sweats Pulmonary: No Dyspnea, No Cough Cardiovascular: No: Chest Pain, Palpitations Gastrointestinal: Diarrhea; No: Nausea Focused Exam Lactate Level 05/30/19 19:26: Lactic Acid Level 1.12 Objective Exam Vital Signs Date Time Temp Pulse Resp B/P (MAP) Pulse Ox O2 Delivery O2 Flow Rate FiO2 06/02/19 08:00 Room Air 06/02/19 08:00 36.6 80 18 117/74 95 Room Air 06/02/19 00:00 37.0 81 18 103/57 93 Room Air 06/01/19 21:00 Room Air 06/01/19 20:00 36.6 83 18 124/81 97 Room Air 06/01/19 15:45 36.6 82 18 107/66 94 Room Air I & O 06/02/19 07:00 Intake Total 3145 ml Balance 3145 ml Capillary Refill : Less Than 3 SecondsLess Than 3 Seconds General Appearance: No Apparent Distress, WD/WN HEENT: Pharynx Normal; No Pale Conjunctivae (L), No Pale Conjunctivae (R) Neck: Non Tender, Supple Respiratory: Chest Non Tender, Normal Breath Sounds, No Accessory Muscle Use, No Respiratory Distress Cardiovascular: Regular Rate, Rhythm, No Murmur Gastrointestinal: normal bowel sounds; No distended, No tenderness Extremity: Normal Inspection, No Calf Tenderness, No Pedal Edema Neurologic/Psychiatric: Alert, Oriented x3 Skin: Normal Color, Warm/Dry Results Lab Microbiology 05/30/19 Blood Culture - Preliminary, Resulted No growth 05/30/19 Urine Culture - Final, Complete NO GROWTH Assessment/Plan Assessment/Plan Assessment/Plan Abdominal Pain Hx of Diverticulitis Indeterminate C. diff ??Viral Gastroenteritis Continue diet advancement and complete abx therapy. WBC count is trending downward (is 11.9 now) so may d/c today. Take stool sample in 2 weeks to determine if C. diff has resolved. F/u with colonoscopy sooner than 6-8 weeks. Clinical Quality Measures DVT/VTE Risk/Contraindication: Risk Factor Score Per Nursin RFS Level Per Nursing on Admit: 2=Moderate DEDRICK SCOTT DO 06/03/19 0951: Subjective Time Seen by a Provider: 15:56 Subjective/Events-last exam Pt still having diarrhea, had 8-10 episodes today. Pain is finally gone. Assessment/Plan Assessment/Plan Assessment/Plan Plan to get stool studies and keep one more day, unless any changes will send him home tomorrow. Supervisory-Addendum Brief Verification & Attestation Participated in pt care: history, MDM, physical Personally performed: exam, history, MDM Care discussed with: Medical Student Procedures: n/a Verification and Attestation of Medical Student E/M Service A medical student performed and documented this service in my presence. I reviewed and verified all information documented by the medical student and made modifications to such information, when appropriate. I personally performed the physical exam and medical decision making. Dedrick Scott, Jun 03, 2019,09:51 INA URIOSTEGUI, Jun 02, 2019 13:57 DEDRICK SCOTT DO Jun 03, 2019 09:51
[2019-06-02 16:30] VITALS: BP 124/78
[2019-06-02 23:43] VITALS: BP 119/79
[2019-06-03] MEDS: NS IV 1000 ML 1,000 ML IV SCH ×2 (00:25→08:45)
[2019-06-03] MEDS: KCL 20 MEQ POWDER FOR ORAL SOLUTION PO SCH (06:46)
--- NOTE | 2019-06-03 07:41 | Progress Note - Surgery ---
INA URIOSTEGUI, 06/03/19 0741: Subjective Date Seen by a Provider: Jun 03, 2019 Time Seen by a Provider: 07:23 Subjective/Events-last exam Pt awake and feeling better. Denies any abdominal pain. No nausea or vomiting. Times between BM is increasing to now 6.5 hours. Still having "mushy" stool. C. diff precautions are started with stool sample collected today at midnight. Review of Systems General: No Chills, No Night Sweats Pulmonary: No Dyspnea, No Cough Cardiovascular: No: Chest Pain, Palpitations Gastrointestinal: Diarrhea; No: Nausea, Vomiting, Abdominal Pain Objective Exam Vital Signs Date Time Temp Pulse Resp B/P (MAP) Pulse Ox O2 Delivery O2 Flow Rate FiO2 06/02/19 23:43 36.6 80 18 119/79 95 Room Air 06/02/19 20:40 Room Air 06/02/19 16:30 36.8 67 18 124/78 95 Room Air 06/02/19 08:00 Room Air 06/02/19 08:00 36.6 80 18 117/74 95 Room Air I & O 06/03/19 07:00 Intake Total 2190 ml Balance 2190 ml Capillary Refill : Less Than 3 SecondsLess Than 3 Seconds General Appearance: No Apparent Distress, WD/WN HEENT: Pharynx Normal; No Pale Conjunctivae (L), No Pale Conjunctivae (R) Neck: Non Tender, Supple Respiratory: Chest Non Tender, Normal Breath Sounds, No Accessory Muscle Use, No Respiratory Distress Cardiovascular: Regular Rate, Rhythm, No Murmur Gastrointestinal: normal bowel sounds; No distended, No tenderness Extremity: Normal Inspection, No Calf Tenderness, No Pedal Edema Neurologic/Psychiatric: Alert, Oriented x3 Skin: Normal Color, Warm/Dry Results Lab Microbiology 05/30/19 Blood Culture - Preliminary, Resulted No growth 05/30/19 Urine Culture - Final, Complete NO GROWTH Assessment/Plan Assessment/Plan Assessment/Plan Abdominal Pain Hx of Diverticulitis Indeterminate C. diff ??Viral Gastroenteritis Continue diet advancement and complete abx therapy. Await stool sample results to determine if antibiotic treatment is required for C. diff infection. Repeat stool culture in 2 weeks to ensure that the infection has resolved. F/u with colonoscopy sooner than 6-8 weeks. Clinical Quality Measures DVT/VTE Risk/Contraindication: Risk Factor Score Per Nursin RFS Level Per Nursing on Admit: 2=Moderate DEDRICK SCOTT DO 06/03/19 1149: Subjective Time Seen by a Provider: 11:40 Subjective/Events-last exam Pt states he has only had one BM so far this am, still no abd pain. Objective Exam Gastrointestinal: non tender, soft, distended (most likely just body habitus) Assessment/Plan Assessment/Plan Assessment/Plan D/C IV, D/C home...will plan for colonosocpy in next 1-2 weeks Supervisory-Addendum Brief Verification & Attestation Participated in pt care: history, MDM, physical Personally performed: exam, history, MDM Care discussed with: Medical Student Procedures: n/a Verification and Attestation of Medical Student E/M Service A medical student performed and documented this service in my presence. I reviewed and verified all information documented by the medical student and made modifications to such information, when appropriate. I personally performed the physical exam and medical decision making. Dedrick Scott, Jun 03, 2019,11:49 INA URIOSTEGUI, Jun 03, 2019 07:41 DEDRICK SCOTT DO Jun 03, 2019 11:49
[2019-06-03 07:51] VITALS: BP 120/75
--- NOTE | 2019-06-03 11:47 | Discharge Inst-Surgical ---
Discharge Inst-Surgical Reconcile Patient Problems Problems Reviewed?: Yes Depart Medication/Instructions New, Converted or Re-Newed RX: Other (no Rx needed) Patient Instructions Follow up Appt: Make appointment for 1 week. [phone] Instructions: May shower in 24 hours or tub bath or soaking. Use incentive spirometer at home as directed. No Smoking Symptoms to Report: Appetite Changes, Extremity Discoloration, Numbness/Tingling, Swelling Increased, Bleeding Excessive, Eyesight Changes, Pain Increased, Urine Color Change, Constipation(Persistent), Fever over 101 degree F, Pain/Pressure in chest, Urinating Difficulty, Cough Up/Vomit Blood, Heart Beat Irreg/Pounding, Pain/Pressure in jaw, Cramps in feet or legs, Lightheadedness, Pain/Pressure in shoulder, Diarrhea(Persistent), Memory Changes Suddenly, Questions/Concerns, Weight gain consecutive days, Dizziness/Fainting, Nausea/Vomiting, Shortness of Breath, Weight gain over 2 pounds If questions or concerns contact your physician Or seek help at emergency department. Activity Activity as Tolerated: Yes Driving Instructions: You May Drive Diet Discharge Diet: No Restrictions (increase fiber) If Any Problems/Questions/Issu: Contact Your Physician, Go to Emergency Room Skin/Wound Care Infection Signs and Symptoms: Skin Itchy or Has a Rash, Increased Swelling, Temperature Above 101 F Bathing Instructions: JOHN Crawford DO Jun 03, 2019 11:47
--- NOTE | 2019-06-09 19:07 | Physician Query Clarification ---
PQ-Intro New Diagnosis Admission/Discharge Admission Date: May 30, 2019 at 23:12 Discharge Date: Jun 03, 2019 at 13:58 The medical record reflects the following clinical scenario: History/Risk Factors: Hx diverticulitis Clinical Findings: Diarrhea, LLQ pain Treatment: IV antibiotics Question: What condition best reflects the above clinical scenario? Please document a response in the Progress Noter or Discharge Summary. 1. Diverticulitis 2. C-Difficile 3. Other, with explanation of the clinical findings. 4. Clinically undetermined, no explanation for the clinical findings. PHYSICIAN RESPONSE What condition reflects above: Other, explanation/clinical finding Explanation of clincal finding CT showed possibly mild diverticulitis, better than previous. C. Diff again non-diagnostic. This may have been more of a viral gastroenteritis, but I am not sure exactly what he had; besides abdominal pain, bloating and diarrhea. Please remember a lack of response to the above will prompt a phone page by [facility]/Coding staff. In responding to this query, please exercise your independent professional judgment. The purpose of this communication is to more accurately reflect the complexity of your patients condition. The fact that a question is asked does not imply that any particular answer is desired or expected. Thank you for your timely response to this clarification. Requestors name: [ ] Phone # [ ] THIS PHYSICIAN QUERY FORM IS A PERMANENT PART OF THE MEDICAL RECORD AGUSTIN GARCIA Jun 09, 2019 19:07 JOHN MARROQUIN DO Jun 11, 2019 11:26
== END 2019-06-03 13:58 | disposition home or self-care (01) | DRG 392 ==
LOC: ER 19:15 → EDUNIT# 19:15 → 4TH 23:12
PROVIDERS: ADMIT Surgery; ATTEND Surgery
DX: K57.32 Diverticulitis of large intestine without perforation or abscess without bleeding (principal); A08.4 Viral intestinal infection, unspecified; R63.4 Abnormal weight loss; F17.210 Nicotine dependence, cigarettes, uncomplicated; Z87.442 Personal history of urinary calculi; Z80.0 Family history of malignant neoplasm of digestive organs
CPT/HCPCS: 36415; 71045; 74177; 80048; 80053; 81000; 83605; 85007; 85025; 85027; 85610; 85730; 87040; 87088; 87324; 87449; 87493; 93041; 96361; 96374; 96375; 96376

== ENCOUNTER 2019-06-15 05:37 | Outpatient (CLI) | payer BC ==
[~2019-06-15] VITALS: Ht 175 cm; Wt 104.5 kg
[~2019-06-15 05:37] MED LIST changes: +L.AC1CAP6 PO
== END 2019-06-15 12:26 | disposition home or self-care (01) ==
LOC: PREOP 05:37
PROVIDERS: ATTEND Surgery
DX: Z01.818 Encounter for other preprocedural examination (principal)

== ENCOUNTER 2019-06-18 11:36 | Day surgery (SDC) | payer BC ==
[2019-06-18] VITALS (7 sets, daily range): BP systolic 114–120; BP diastolic 55–83
[2019-06-18] MEDS ORDERED: LACTATED RINGERS 1,000 ML IV STA (11:43)
[2019-06-18] MEDS ORDERED: LACTATED RINGERS 1,000 ML IV ONE (11:47)
[2019-06-18] MEDS ORDERED: PROPOFOL INJECTION 50 ML IV ONE ×2 (11:49→12:44)
[2019-06-18] MEDS ORDERED: MIDAZOLAM 2 MG/2 ML (VERSED) VIAL ONE (11:49)
--- NOTE | 2019-06-18 12:41 | Progress Note-Pre Operative ---
Pre-Operative Progress Note H&P Reviewed The H&P was reviewed, patient examined and no changes noted. Time Seen by Provider: 12:39 Date H&P Reviewed: Jun 18, 2019 Time H&P Reviewed: 12:38 Pre-Operative Diagnosis: Colitis, Abd pain JOHN MARROQUIN DO Jun 18, 2019 12:41
[2019-06-18] MEDS ORDERED: proPOfol 200 MG/20 ML (DIPRIVAN) VIAL IV ONE (13:03)
[2019-06-18] MEDS ORDERED: SUCCINYLCHOLINE INJ 100 MG/5 ML SYR ONE (13:13)
--- NOTE | 2019-06-18 13:31 | Progress Note-Post Operative ---
Post-Operative Progess Note Surgeon (s)/Diesel Truck Crane Operator (s) Surgeon JOHN MARROQUIN DO Diesel Truck Crane Operator: PADMINI Villalobos Pre-Operative Diagnosis Colitis, Abd pain Post-Operative Diagnosis same Procedure & Operative Findings Date of Procedure 06/18/19 Procedure Performed/Findings Colon with cold bx Anesthesia Type IV sedation by BIOINFORMATICS ENGINEER Estimated Blood Loss Estimated blood loss (mL): scant Specimens/Packing Specimens Removed Cecum/ascending colon bx Transverse colon bx Desc colon bx Fecal fluid for C. Diff JOHN MARROQUIN DO Jun 18, 2019 13:31
--- NOTE | 2019-06-18 14:15 | NUR ---
DELFINO CLEARY admitted to room 419-1, with an admitting diagnosis of OBSERVATION -- POST EGD COLONSCOPY -POSSIBLE ASPIRATION OF EMESIS, on from ENDO LAB via W/C, accompanied by ENDO RN.DELFINO CLEARY introduced to surroundings, call light, bed controls, phone, TV, temperature control, lights, meal times, smoking policy, visitor policy, side rail policy, bathrooms and showers. Patient Rights given to patient in the handbook. DELFINO CLEARY verbalizes understanding that [facility] is not responsible for the loss or damage to any personal effects or valuables that are kept in the patients posession during their hospitalization. The following Patient Care Plans were discussed with the PT: Discharge Planning, HIGH RISK ASPIRATION, IM SWALLOWING, DUSHAGIA, AND HIGH RISK INFECTION. DELFINO CLEARY verbalizes understanding of Interdisciplinary Patient Education. Patient and/or family were informed about the Rapid Response Team and its purpose. CAME TO FLOOR W SL IN R HAND-- NOTE THAT THIS RN WAS TOLD IN REPORT TO CALL DR NOVOA FOR ORDERS THIS RN CALLED AND CHECKED WITH DR CARA MALDONADO -- HE VOICED TO GET DR NOVOA'S ORDERS AND HE WOULD PUT IN ORDERS AFTER
[2019-06-18 15:10] LABS: HEMOGLOBIN 15.6 G/DL (13.3-17.7); MEAN PLATELET VOLUME 9.5 FL (7.4-10.4); RED CELL DISTRIBUTION WIDTH 13.3 % (10.0-14.5)
[2019-06-18 15:32] LABS: ALANINE AMINOTRANSFERASE 28 U/L (0-55); ALKALINE PHOSPHATASE 63 U/L (40-136); BILIRUBIN,TOTAL 0.7 MG/DL (0.1-1.0); BUN/CREATININE RATIO 10; CALCIUM 9.2 MG/DL (8.5-10.1); CARBON DIOXIDE 25 MMOL/L (21-32); CHLORIDE 106 MMOL/L (98-107); CREATININE SERUM 0.89 MG/DL (0.60-1.30); GFR ESTIMATED > 60; GLUCOSE 90 MG/DL (70-105); MAGNESIUM 2.1 MG/DL (1.6-2.4); PHOSPHORUS 3.2 MG/DL (2.3-4.7); POTASSIUM 3.4 MMOL/L (3.6-5.0); SODIUM 142 MMOL/L (135-145); TOTAL PROTEIN 6.8 GM/DL (6.4-8.2)
--- NOTE | 2019-06-18 20:23 | Diagnostic Imaging Report ---
INDICATION: Possible aspiration post endoscopy. PA and lateral chest obtained at 04:41 p.m. and compared to 05/30/2019. Heart and mediastinal silhouette are normal in appearance. There is no pneumothorax or pleural fluid collection. There is linear atelectatic change in the left mid lung and base. There is no overt consolidation. IMPRESSION: Linear atelectatic changes are noted in the left mid lung and base. There is no pneumothorax or pleural fluid or ora consolidation. Dictated by: Dictated on workstation # [id number]
[2019-06-18] MEDS: RT-ALBUTEROL/IPRATROPIUM 3 ML (DUONEB) VIAL INH SCH (21:34)
[2019-06-19] VITALS: BP 101/66
--- NOTE | 2019-06-19 01:56 | OPERATIVE REPORT ---
DATE OF SERVICE: 06/18/2019 PREOPERATIVE DIAGNOSES: History of Clostridium difficile colitis as well as diverticulitis. Continued abdominal pain. POSTOPERATIVE DIAGNOSIS: Colitis. PROCEDURE: Colonoscopy with random biopsy. SURGEON: Dedrick Scott DO. BOOTH USHER: DOUG Villalobos. SPECIMENS: Three biopsies from the cecum and ascending colon, 3 biopsies from the transverse colon and then 4 biopsies from the descending colon. BLOOD LOSS: Scant. FLUIDS: Per anesthesia. POSTOPERATIVE CONDITION: Stable. INDICATION FOR PROCEDURE: The patient is a 43-year-old male who has been having abdominal pain. He has lost some weight. He had 2 episodes of C. diff positive for antigen, but then the final study came back negative. He also had an episode of diverticulitis, has had continued abdominal pain and needed a workup, never had a colonoscopy. FINDINGS: The patient had pretty severe colitis throughout the colon. Unfortunately, we were not able to finish the colonoscopy, did not see the sigmoid area very well and unable to do biopsies in the rectum. PROCEDURE NOTE: After informed consent was obtained, the patient was brought to the endoscopy suite and placed in the left lateral decubitus position. He was administered IV sedation by the SHIPPING ORDER CLERK who then monitored his vitals the entire time, heart rate, blood pressure and pulse ox and the scope was inserted, pushed all the way to about 140 cm, able to get to the cecum. All throughout the colon noted inflammation and what looked like inflammatory polyps. There was a little bit of retained liquid fecal material. I suctioned this up and sent it off for C. diff study and all other enteric organisms. Once in the cecum, took a picture of appendiceal orifice and then able to get into the terminal ileum. Terminal ileum looked fine. Elected to do a biopsy in the terminal ileum, pulled back and because of the colon looked inflamed all the way along and in the rectum actually they looked like inflammatory polyps. There was not really any ulceration. No pseudomembranous inflammation. I elected to do some random biopsies, did a biopsy in the cecum and then 2 in the ascending colon, came into the transverse colon and then did 3 random biopsies in the transverse colon, then down into the descending colon and did 4 biopsies in the descending colon. Unfortunately, right when I started to go into the sigmoid colon, the patient coughed and then vomited and I believe he may have aspirated some gastric contents, saturation dropped. At this point, I removed the scope and assisted in helping to get him airway established. SHIPPING ORDER CLERK took care of the airway, did some bag mask breathing for him. He recovered and because of his oxygen saturations were down in the high 80s and low 90s on room air, I elected to admit him to watch him overnight and consulted pulmonology. Job ID: [id number] DocumentID: [id number] Dictated Date: 06/18/2019 18:28:22 Clinical Dermatologist Date: 06/19/2019 01:55:51 Dictated By: DO OMAR LAST
[2019-06-19] MEDS: RT-ALBUTEROL/IPRATROPIUM 3 ML (DUONEB) VIAL INH SCH (02:13)
[2019-06-19 04:00] VITALS: BP 113/73
[2019-06-19 05:57] LABS: HEMOGLOBIN 14.3 G/DL (13.3-17.7); MEAN PLATELET VOLUME 9.3 FL (7.4-10.4); RED CELL DISTRIBUTION WIDTH 13.3 % (10.0-14.5); WHITE BLOOD COUNT 13.5 10^3/uL (4.3-11.0)
[2019-06-19 06:18] LABS: ALANINE AMINOTRANSFERASE 23 U/L (0-55); ALBUMIN 3.8 GM/DL (3.2-4.5); ALKALINE PHOSPHATASE 63 U/L (40-136); BILIRUBIN,TOTAL 0.5 MG/DL (0.1-1.0); BUN/CREATININE RATIO 11; CARBON DIOXIDE 22 MMOL/L (21-32); CHLORIDE 110 MMOL/L (98-107); CREATININE SERUM 0.76 MG/DL (0.60-1.30); GFR ESTIMATED > 60; GLUCOSE 102 MG/DL (70-105); MAGNESIUM 2.3 MG/DL (1.6-2.4); PHOSPHORUS 4.1 MG/DL (2.3-4.7); POTASSIUM 3.2 MMOL/L (3.6-5.0); SODIUM 141 MMOL/L (135-145); TOTAL PROTEIN 6.4 GM/DL (6.4-8.2)
[2019-06-19 08:00] VITALS: BP 110/70
--- NOTE | 2019-06-19 09:23 | Progress Note - Surgery ---
JUSTIN TOLLIVER,MED STUDENT 06/19/19 0923: Subjective Date Seen by a Provider: Jun 19, 2019 Time Seen by a Provider: 08:20 Subjective/Events-last exam Mr. Cameron is S/P colonoscopy. The procedure was done yesterday. He vomited during and aspirated. He states he has some trouble with breathing directly after the procedure but overnight was able to cough and states the shortness of breath has resolved. He was receiving albuterol treatments with his last being at 0200 this morning. He is currently on room air and in no distress. He denies nausea/vomiting. He has not had a bowel movement since the colonoscopy but states he is passing gas. Review of Systems General: No Chills, No Night Sweats HEENT: No Head Aches Pulmonary: Dyspnea (improved), Cough Cardiovascular: No: Chest Pain, Orthopnea Gastrointestinal: No: Nausea, Vomiting Neurological: No: Weakness Objective Exam Vital Signs Date Time Temp Pulse Resp B/P (MAP) Pulse Ox O2 Delivery O2 Flow Rate FiO2 06/19/19 08:00 35.4 79 14 110/70 (83) 95 Room Air 06/19/19 04:00 36.8 79 18 113/73 (86) 96 Room Air 06/19/19 02:27 36.3 06/19/19 02:13 92 Room Air 06/19/19 00:00 37.4 93 18 101/66 (78) 95 Room Air 06/18/19 21:34 95 Room Air 06/18/19 21:29 37.4 06/18/19 20:00 Room Air 06/18/19 19:03 38.5 107 16 115/55 (75) 96 Room Air 06/18/19 16:23 Room Air 06/18/19 15:40 35.2 89 20 114/76 (89) 95 Room Air 06/18/19 14:00 84 16 90 Room Air 06/18/19 13:55 84 16 90 Room Air 06/18/19 13:50 84 16 91 Room Air 06/18/19 13:45 81 16 92 Room Air 06/18/19 12:03 35.9 81 16 117/83 (94) 94 Room Air I & O 06/19/19 07:00 Intake Total 2470 ml Balance 2470 ml Capillary Refill : General Appearance: No Apparent Distress, WD/WN HEENT: PERRL/EOMI Respiratory: Chest Non Tender, Lungs Clear, Normal Breath Sounds, No Accessory Muscle Use, No Respiratory Distress Cardiovascular: Regular Rate, Rhythm, No Murmur Gastrointestinal: normal bowel sounds, non tender, soft; No guarding, No rebound Neurologic/Psychiatric: Alert, Oriented x3, Normal Mood/Affect Skin: Normal Color, Warm/Dry Results Lab Laboratory Tests 06/18/19 14:40: White Blood Count 12.0H, Red Blood Count 4.89, Hemoglobin 15.6, Hematocrit 45, Mean Corpuscular Volume 92, Mean Corpuscular Hemoglobin 32, Mean Corpuscular Hemoglobin Concent 35, Red Cell Distribution Width 13.3, Platelet Count 343, Mean Platelet Volume 9.5, Sodium Level 142, Potassium Level 3.4L, Chloride Level 106, Carbon Dioxide Level 25, Anion Gap 11, Blood Urea Nitrogen 9, Creatinine 0.89, Estimat Glomerular Filtration Rate > 60, BUN/Creatinine Ratio 10, Glucose Level 90, Calcium Level 9.2, Corrected Calcium 9.2, Phosphorus Level 3.2, Magnesium Level 2.1, Total Bilirubin 0.7, Aspartate Amino Transf (AST/SGOT) 20, Alanine Aminotransferase (ALT/SGPT) 28, Alkaline Phosphatase 63, Total Protein 6.8, Albumin 4.0 06/19/19 05:47: White Blood Count 13.5H, Red Blood Count 4.60, Hemoglobin 14.3, Hematocrit 42, Mean Corpuscular Volume 91, Mean Corpuscular Hemoglobin 31, Mean Corpuscular Hemoglobin Concent 34, Red Cell Distribution Width 13.3, Platelet Count 321, Mean Platelet Volume 9.3, Sodium Level 141, Potassium Level 3.2L, Chloride Level 110H, Carbon Dioxide Level 22, Anion Gap 9, Blood Urea Nitrogen 8, Creatinine 0.76, Estimat Glomerular Filtration Rate > 60, BUN/Creatinine Ratio 11, Glucose Level 102, Calcium Level 9.0, Corrected Calcium 9.2, Phosphorus Level 4.1, Magnesium Level 2.3, Total Bilirubin 0.5, Aspartate Amino Transf (AST/SGOT) 19, Alanine Aminotransferase (ALT/SGPT) 23, Alkaline Phosphatase 63, Total Protein 6.4, Albumin 3.8 Microbiology 06/18/19 C. difficile GDH Antigen & Toxins - Final, Resulted 06/18/19 Stool Culture, Resulted Pending Assessment/Plan Assessment/Plan Assessment/Plan Encouraged use of IS. Repeat CXR. C.Diff precautions. Awaiting biopsy results from colonoscopy. Will need to repeat colonoscopy in the future due to incompletion, will likely schedule in [place] Clinical Quality Measures DVT/VTE Risk/Contraindication: Risk Factor Score Per Nursin RFS Level Per Nursing on Admit: 1=Low/No VTE PPX DEDRICK SCOTT DO 06/19/19 1029: Subjective Time Seen by a Provider: 10:01 Subjective/Events-last exam Pt states he is doing fine, wants to go home and denies trouble breathing. Assessment/Plan Assessment/Plan Assessment/Plan C. Diff came back positive Aspriration pneumonitis Will treat with oral vancomycin 125mg QID for 10 days, then TID for 10 days and then BID for 10 days. Pt should continue IS use at home; will need outpt CXR and follow up with Pulmonary. See me in 1-2 weeks. Supervisory-Addendum Brief Verification & Attestation Participated in pt care: history, MDM, physical Personally performed: exam, history, MDM Care discussed with: Medical Student Procedures: n/a Verification and Attestation of Medical Student E/M Service A medical student performed and documented this service in my presence. I reviewed and verified all information documented by the medical student and made modifications to such information, when appropriate. I personally performed the physical exam and medical decision making. Dedrick Scott, Jun 19, 2019,10:28 JUSTIN TOLLIVERMED STUDENT Jun 19, 2019 09:23 DEDRICK SCOTT DO Jun 19, 2019 10:29
--- NOTE | 2019-06-19 10:08 | Anesthesia-General Post-Op ---
MAC Significant Intra-Op Events Notes Refer to anesthesia record for procedural events/complications Patient Condition Mental Status/LOC: Same as Preop Cardiovascular: Satisfactory Nausea/Vomiting: Absent Respiratory: Satisfactory Pain: Controlled Complications: Absent Post Op Complications Complications Pt was reported to have aspirated during procedure yesterday but is doing well this morning without complaints per SRNA on rounds VSS Follow Up Care/Instructions Patient Instructions None needed. Anesthesiology Discharge Order Discharge Order Patient is doing well, no complaints, stable vital signs, No complications reported per nursing. FARA MCNULTY CRNA Jun 19, 2019 10:08
--- NOTE | 2019-06-19 10:14 | Pulmonary Consultation ---
History of Present Illness History of Present Illness Date of Consultation 06/19/19 10:09 Time Seen by Provider: 10:09 Date of Admission History of Present Illness 43yo WM presented for observation to 4th floor after colonoscopy yesterday. Anesthesia called me with a report of aspiration during procedure. Pt became hypoxic and wheezy after procedure. Pt had breathing treatments and improved. He is currently feeling back to his baseline. No prior episodes like this. Allergies and Home Medications Allergies Coded Allergies: No Known Drug Allergies (Unverified , 06/15/19) Home Medications L.acidoph & Paracasei,B.lactis 1 Each Capsule, 1 CAP PO DAILY, (Reported) Past Wnmhuka-[id number]-Srmltj Hx Patient Social History Alcohol Use: Denies Use Recreational Drug Use: No Smoking Status: Current Everyday Smoker Type Used: Cigarettes 2nd Hand Smoke Exposure: Yes Recent Foreign Travel: No Contact w/Someone Who Travel: No Recent Infectious Disease Expo: No Recent Hopitalizations: Yes (dc'd 05/11/19 diverticulitis) Immunizations Up To Date Tetanus Booster (TDap): Unknown Seasonal Allergies Seasonal Allergies: No Past Medical History Surgeries: No Respiratory: No Cardiac: Yes Palpitations Neurological: No Reproductive Disorders: No Sexually Transmitted Disease: No HIV/AIDS: No Genitourinary: Yes Kidney Stones Gastrointestinal: Yes (diverticulitis) Diverticulosis, Chronic Diarrhea Musculoskeletal: No Endocrine: No HEENT: Yes (GLASSES) Loss of Vision: Denies Hearing Impairment: Denies Cancer: No Psychosocial: No Integumentary: No Blood Disorders: No Adverse Reaction/Blood Tranf: No (N/A) Family Medical History Cancer, Diabetes, GI Disease Review of Systems Time Seen by Provider: 10:14 Constitutional: No: Fever, Chills, Sweats, Weakness, Malaise, Other Eyes: No: Pain, Vision change, Conjunctivae inflammation, Eyelid inflammation, Other, Redness ENT: No: Ear pain, Ear discharge, Nose pain, Nose discharge, Nose congestion, Mouth pain, Mouth swelling, Throat pain, Throat swelling, Other Respiratory: No: Cough, Dry, Shortness of breath, SOB with excertion, Wheezing, Hemoptysis, Pleuritic Pain, Sputum, Wheezing, Other Cardiovascular: No: Chest Pain, Palpitations, Orthopnea, Paroxysmal Noc. Dyspn ea, Edema, Lt Headedness, Other Gastrointestinal: Diarrhea Sepsis Event Evaluation Height, Weight, BMI Height: 5'8.00" Weight: 235lbs. 4.0oz. 106.022608ee; 34.12 BMI Method:Stated Exam Exam Vital Signs Date Time Temp Pulse Resp B/P (MAP) Pulse Ox O2 Delivery O2 Flow Rate FiO2 06/19/19 08:00 35.4 79 14 110/70 (83) 95 Room Air 06/19/19 04:00 36.8 79 18 113/73 (86) 96 Room Air 06/19/19 02:27 36.3 06/19/19 02:13 92 Room Air 06/19/19 00:00 37.4 93 18 101/66 (78) 95 Room Air 06/18/19 21:34 95 Room Air 06/18/19 21:29 37.4 06/18/19 20:00 Room Air 06/18/19 19:03 38.5 107 16 115/55 (75) 96 Room Air 06/18/19 16:23 Room Air 06/18/19 15:40 35.2 89 20 114/76 (89) 95 Room Air 06/18/19 14:00 84 16 90 Room Air 06/18/19 13:55 84 16 90 Room Air 06/18/19 13:50 84 16 91 Room Air 06/18/19 13:45 81 16 92 Room Air 06/18/19 12:03 35.9 81 16 117/83 (94) 94 Room Air I & O 06/19/19 07:00 Intake Total 2470 ml Balance 2470 ml Height & Weight Height: 5'8.00" Weight: 235lbs. 4.0oz. 106.087887km; 34.12 BMI Method:Stated General Appearance: No Apparent Distress, WD/WN HEENT: PERRL/EOMI Neck: Normal Inspection, Non Tender, Supple Respiratory: Chest Non Tender, Lungs Clear, Normal Breath Sounds, No Accessory Muscle Use, No Respiratory Distress Cardiovascular: Regular Rate, Rhythm, No Murmur Gastrointestinal: normal bowel sounds, non tender, soft; No guarding, No rebound Neurologic/Psychiatric: Alert, Oriented x3, Normal Mood/Affect Skin: Normal Color, Warm/Dry Lymphatic: No Adenopathy Results Lab Laboratory Tests 06/18/19 14:40 06/19/19 05:47 Assessment/Plan Assessment/Plan Acute bronchospasam with probable GABBY and possible aspiration -Now much improved -CXR - reviewed and shows only minimal atelectasis -Repeat CXR as out patient Hypokalemia -Will order 40meq of K dur. Obesity with probable GABBY -I recommend home PSG. I can see pt in 1-2 wks if he wants to have testing. PT is ok for discharge from pulmonary standpoint. JONNY NOVOA DO Jun 19, 2019 10:14
[2019-06-19] MEDS ORDERED: KCL 20 MEQ TAB (K-DUR) PO ONE (10:15)
[2019-06-19] MEDS ORDERED: VANC125C11 PO (10:33)
--- NOTE | 2019-06-19 10:34 | Discharge Inst-Surgical ---
Discharge Inst-Surgical Reconcile Patient Problems Problems Reviewed?: Yes Depart Medication/Instructions New, Converted or Re-Newed RX: Transmitted to Pharmacy Patient Instructions Follow up Appt: Make appointment for 1 week. [phone] Instructions: May shower in 24 hours or tub bath or soaking. Use incentive spirometer at home as directed. No Smoking Symptoms to Report: Appetite Changes, Extremity Discoloration, Numbness/Tingling, Swelling Increased, Bleeding Excessive, Eyesight Changes, Pain Increased, Urine Color Change, Constipation(Persistent), Fever over 101 degree F, Pain/Pressure in chest, Urinating Difficulty, Cough Up/Vomit Blood, Heart Beat Irreg/Pounding, Pain/Pressure in jaw, Cramps in feet or legs, Lightheadedness, Pain/Pressure in shoulder, Diarrhea(Persistent), Memory Changes Suddenly, Questions/Concerns, Weight gain consecutive days, Dizziness/Fainting, Nausea/Vomiting, Shortness of Breath, Weight gain over 2 pounds If questions or concerns contact your physician Or seek help at emergency department. Activity Activity as Tolerated: Yes Driving Instructions: You May Drive If Any Problems/Questions/Issu: Contact Your Physician, Go to Emergency Room Skin/Wound Care Infection Signs and Symptoms: Temperature Above 101 F JOHN MARROQUIN DO Jun 19, 2019 10:34
[2019-06-19 10:50] VITALS: BP 110/70
== END 2019-06-19 10:50 | disposition home or self-care (01) ==
LOC: ENDO 11:36 → 4TH 14:12 → ENDO 06-19 10:50
PROVIDERS: ATTEND Surgery
DX: K52.9 Noninfective gastroenteritis and colitis, unspecified (principal); K57.32 Diverticulitis of large intestine without perforation or abscess without bleeding; E66.9 Obesity, unspecified; Z68.35 Body mass index [BMI] 35.0-35.9, adult; Z80.0 Family history of malignant neoplasm of digestive organs; Z83.3 Family history of diabetes mellitus; Z87.891 Personal history of nicotine dependence
CPT/HCPCS: 36415; 71046; 80053; 83735; 84100; 85027; 87015; 87045; 87046; 87324; 87449; 87899; 88305; 94640; 94664; 94760

== ENCOUNTER → 2021-05-29 | Outpatient (CLI) | payer BC ==
[~2021-05-29] MED LIST changes: +VANC125C11 PO
== END ==
LOC: ORTHO 16:00
PROVIDERS: ATTEND Orthopaedic Surgery
DX: S46.211A Strain of muscle, fascia and tendon of other parts of biceps, right arm, initial encounter (principal); X58.XXXA Exposure to other specified factors, initial encounter
CPT/HCPCS: 99202

== ENCOUNTER → 2021-06-04 | Outpatient (CLI) | payer BC ==
--- NOTE | 2021-06-04 18:35 | Diagnostic Imaging Report ---
PROCEDURE: MRI right joint upper extremity without contrast. TECHNIQUE: Multiplanar, multisequence [id number] MRI of the right upper extremity was accomplished. INDICATION: Elbow pain with feeling of a snap. COMPARISON: None available. Findings: LIGAMENTS: By non-arthrogram imaging, the medial and lateral ligamentous complexes of the elbow are intact. TENDONS AND MUSCLES: Complete tear of the distal biceps with the proximal stump retracted approximately 5 cm to the level of the elbow joint. More proximally in the upper arm, there is T2 hyperintense fluid surrounding the torn stump, likely due to hemorrhage. The distal brachialis and triceps tendons are intact. The origin of the medial common flexor tendons is normal. The origin of the lateral common extensor tendons is normal. The musculature of the forearm and distal upper arm is normal in bulk. BONES AND CARTILAGE: No fracture. Articular cartilage of the elbow is preserved. No osteochondral lesion. SOFT TISSUES: No significant elbow joint effusion. No olecranon or bicipitoradial bursitis. The ulnar nerve is normal in configuration without mass effect in the cubital tunnel. Normal fat planes around the median and radial nerves at the level of the elbow. A small amount of subcutaneous edema and/or contusion is present in the anterior aspect of the elbow. IMPRESSION: 1. Complete tear of the distal biceps with the proximal stump retracted approximately 5 cm. Dictated by: Dictated on workstation # [id number]
== END ==
LOC: RAD 16:15
PROVIDERS: ATTEND Orthopaedic Surgery
DX: S46.221A Laceration of muscle, fascia and tendon of other parts of biceps, right arm, initial encounter (principal); X58.XXXA Exposure to other specified factors, initial encounter
CPT/HCPCS: 73221

== ENCOUNTER 2021-06-14 10:22 | Outpatient (CLI) | payer BC ==
[~2021-06-14] VITALS: Ht 175 cm; Wt 113.4 kg
[2021-06-14] MEDS ORDERED: L.AC1CAP6 PO (10:43)
[2021-06-15] MEDS ORDERED: OXYC1TAB87 PO (11:08)
== END 2021-06-14 16:30 | disposition home or self-care (01) ==
LOC: PREOP 10:22
PROVIDERS: ATTEND Orthopaedic Surgery
DX: Z01.818 Encounter for other preprocedural examination (principal)

== ENCOUNTER 2021-06-15 08:02 | Day surgery (SDC) | payer BC ==
[~2021-06-15] VITALS: Ht 175 cm; Wt 113.4 kg
[2021-06-15] VITALS (12 sets, daily range): BP systolic 102–162; BP diastolic 77–107
[2021-06-15] MEDS ORDERED: ceFAZolin 2 GM IV Premixed 50 ML IV ONE (08:15)
[2021-06-15] MEDS ORDERED: fentaNYL INJ 100 MCG/2 ML AMP ONE ×2 (08:31→08:48)
[2021-06-15] MEDS ORDERED: MIDAZOLAM 2 MG/2 ML (VERSED) VIAL ONE ×2 (08:32→09:06)
[2021-06-15] MEDS ORDERED: SEVOFLURANE (ULTANE) 15 ML INHAL SOLN ONE ×2 (08:48→10:44)
[2021-06-15] MEDS ORDERED: KETOROLAC 30 MG/ML VIAL ONE ×2 (08:48→10:44)
[2021-06-15] MEDS ORDERED: ONDANSETRON 4 MG/2 ML (SDV) Z0FRAN ONE (08:48)
[2021-06-15] MEDS ORDERED: proPOfol 200 MG/20 ML (DIPRIVAN) VIAL IV ONE (08:48)
[2021-06-15] MEDS ORDERED: ROPIVACAINE 5MG/ML 30ML VIAL ONE (09:17)
[2021-06-15] MEDS ORDERED: LIDOCAINE/EPI 1%-1:200,000 (XYLOCAINE) 30 ML VIAL ONE (09:19)
[2021-06-15] MEDS ORDERED: LACTATED RINGERS 1,000 ML IV PRN (09:45)
--- NOTE | 2021-06-15 11:02 | Operative Report - Ortho ---
Operative Report Surgeon (s)/Lighter Captain (s) Surgeon COREY ERNANDEZ MD Lighter Captain n/a Pre-Operative Diagnosis Right Distal Biceps Rupture Post-Operative Diagnosis same Operative Report Date of Procedure: Jun 15, 2021 Name of Procedure Performed: Repair of Right Distal Biceps Rupture Description & Findings After obtaining informed consent and marking the patient in the preoperative holding area, the patient did receive IV antibiotics and was taken to the operating room. General anesthesia was induced. Surgical timeout was taken. Incision was made just distal to the antecubital crease. Blunt dissection was carried down to the edge of the brachioradialis and a plane was developed. The biceps tendon was identified and still has 15 to 20% attachment. Blunt dissection was carried down to the bicipital tuberosity with the forearm in supination to protect the nerve. The remaining fibers were detached. The edge of the bicipital tuberosity was rasped. A ConMed TruShot was then placed in the bicipital tuberosity and has good fixation. One #2 suture from the anchor was passed in [place] fashion through the biceps tendon. The second was passed in vertical mattress fashion. The short end of the [place] suture was used to pull the biceps tendon down to the tuberosity and this was tied. The vertical mattress was tied. The repair was inspected and demonstrated good approximation of the biceps tendon without gap. The wound was lavaged with normal saline. Wound was closed subcutaneously with 3-0 vicryl and the skin was closed with a running subcuticular 4-0 V-loc. Wound was dressed with mastisol, steri-strips, 4x4s, cast padding, posterior splint, and ROSE wrap. Patient tolerated the procedure well and was stable to the recovery room. Anesthesia Type General Estimated Blood Loss 10 ml Specimen(s) collected/removed None COREY ERNANDEZ MD Jun 15, 2021 11:02
[2021-06-15] MEDS ORDERED: OXYC1TAB87 PO (11:08)
[2021-06-15] MEDS ORDERED: RT-ALBUTEROL SULF 2.5 MG/3 ML PRE-MIX VIAL INH ONE (11:15)
[2021-06-15] MEDS ORDERED: oxyCODONE/APAP 5/325MG (PERCOCET 5) TABLET PO PRN (11:15)
[2021-06-15] MEDS ORDERED: HYDROmorphone 2 MG/ML VIAL (DILAUDID) IV ONE (11:15)
[2021-06-15] MEDS ORDERED: ONDANSETRON 4 MG/2 ML (SDV) Z0FRAN IVP PRN (11:15)
--- NOTE | 2021-06-15 14:00 | Anesthesia-General Post-Op ---
General Patient Condition Mental Status/LOC: Same as Preop Cardiovascular: Satisfactory Nausea/Vomiting: Absent Respiratory: Satisfactory Pain: Controlled Complications: Absent Post Op Complications Complications None Follow Up Care/Instructions Patient Instructions None needed. Anesthesia/Patient Condition Patient Condition Patient is doing well, no complaints, stable vital signs, no apparent adverse anesthesia problems. No complications reported per nursing. D/C home per [facility] Criteria: Yes FARA MCNULTY CRNA Jun 15, 2021 14:00
== END 2021-06-15 14:03 ==
LOC: SDC 08:02
PROVIDERS: ATTEND Orthopaedic Surgery
DX: S46.211A Strain of muscle, fascia and tendon of other parts of biceps, right arm, initial encounter (principal); S46.291A Other injury of muscle, fascia and tendon of other parts of biceps, right arm, initial encounter; E66.9 Obesity, unspecified; F17.210 Nicotine dependence, cigarettes, uncomplicated; Z68.37 Body mass index [BMI] 37.0-37.9, adult; Z79.899 Other long term (current) drug therapy
CPT/HCPCS: 24342; 87081; C1713

== ENCOUNTER → 2021-07-12 | Outpatient (CLI) | payer BC ==
[~2021-07-12] MED LIST changes: +OXYC1TAB87 PO
== END ==
LOC: ORTHO 13:03
PROVIDERS: ATTEND Orthopaedic Surgery
DX: Z47.89 Encounter for other orthopedic aftercare (principal); Z98.890 Other specified postprocedural states

== ENCOUNTER → 2021-07-26 | Outpatient (CLI) | payer BC | LOC: ORTHO 12:55 | PROVIDERS: ATTEND Orthopaedic Surgery | DX: Z47.89 Encounter for other orthopedic aftercare (principal) ==

== ENCOUNTER → 2021-08-23 | Outpatient (CLI) | payer BC | LOC: ORTHO 16:17 | PROVIDERS: ATTEND Orthopaedic Surgery | DX: Z09 Encounter for follow-up examination after completed treatment for conditions other than malignant neoplasm (principal); I10 Essential (primary) hypertension; Z98.890 Other specified postprocedural states ==

== ENCOUNTER → 2021-10-09 | Outpatient (CLI) | payer BC | LOC: ORTHO 16:25 | PROVIDERS: ATTEND Orthopaedic Surgery | DX: Z47.89 Encounter for other orthopedic aftercare (principal); Z98.890 Other specified postprocedural states | CPT/HCPCS: 99212 ==

== ENCOUNTER 2022-05-01 17:38 | Emergency (ER) | payer BC ==
[~2022-05-01] VITALS: Ht 175 cm; Wt 122.4 kg
[2022-05-01 17:47] VITALS: BP 132/86
[2022-05-01] MEDS ORDERED: ASPIRIN 81 MG CHEW (CHILDREN'S ASA) PO ONE (18:15)
--- NOTE | 2022-05-01 18:15 | ED Cardiac General ---
History of Present Illness General Chief Complaint: Chest Pain Stated Complaint: CHEST PAIN - SOA Nursing Triage Note: PT AMB TO RM 3 WITH CO CHESTPAIN, SOA, AND STATES HEART FEELS LIKE ITS "FLUTTERING". PT A&oX4. PT DENIES HEART HX Source: patient Exam Limitations: no limitations History of Present Illness Date Seen by Provider: May 01, 2022 Time Seen by Provider: 18:13 Initial Comments Patient is a 46-year-old male with a history of smoking, family cardiac history, hypertension who presents to the ED for heart palpitations, chest pain or shortness of breath. This started around 3:00 today while he was out in his shop working. Started feeling fluttering of his chest with associated shortness of breath. Denies of any squeezing type chest pain or the feeling of someone sitting on his chest. Denies of any nausea, vomiting, diarrhea, cough. States only thing differently today he drank a large Gatorade. Did drink black coffee. He stopped smoking in November. Denies history of similar symptoms in the past. No recent URI symptoms such as cough, runny nose, fever, vomiting or diarrhea. No recent travels or surgeries. He reports intermittent leg swelling worse at the end of the day but gets better when he elevates. Improvement of the leg swelling bilateral over the past 2 days ASA po ROLL WINDER: No Allergies and Home Medications Allergies Coded Allergies: No Known Drug Allergies (Unverified , 06/15/19) Patient Home Medication List Home Medication List Reviewed: Yes L.acidoph & Paracasei,B.lactis (Probiotic) 1 Each Capsule, 1 EACH PO DAILY, (Reported) Entered as Reported by: SOLA GUERRA on 06/14/21 1043 Oxycodone HCl/Acetaminophen (Percocet 5-325 mg Tablet) 1 Each Tablet, 1 TAB PO Q4H PRN for PAIN-MODERATE (5-7) Prescribed by: COREY ERNANDEZ MD on 06/15/21 1109 Review of Systems Review of Systems Constitutional: No chills, No diaphoresis, No malaise, No weakness EENTM: No Double Vision, No Eye Pain Respiratory: Denies Cough, Denies Orthopnea Cardiovascular: Chest Pain, Palpitations Gastrointestinal: Denies Abdominal Pain Genitourinary: Denies Burning, Denies Discharge, Denies Drainage Musculoskeletal: No back pain, No joint pain, No joint swelling, No muscle pain Skin: No change in color Psychiatric/Neurological: Denies Anxiety All Other Systems Reviewed Negative Unless Noted: Yes Past Hfysjra-Ssswta-Vusyai Hx Patient Social History Tobacco Use?: No Substance use?: No Alcohol Use?: No Pt feels they are or have been: No Immunizations Up To Date Tetanus Booster (TDap): Unknown Seasonal Allergies Seasonal Allergies: No Past Medical History Surgery/Hospitalization HX: HTN Surgeries: Yes ([place] teeth removed / Colonoscopy) Respiratory: No Currently Using CPAP: No Currently Using BIPAP: No Cardiac: No Palpitations Neurological: No Reproductive Disorders: No Sexually Transmitted Disease: No HIV/AIDS: No Genitourinary: Yes Kidney Stones Gastrointestinal: Yes (Diverticulitis) Diverticulosis, Chronic Diarrhea Musculoskeletal: No Endocrine: No HEENT: No Loss of Vision: Denies Hearing Impairment: Denies Cancer: No Psychosocial: No Integumentary: No Blood Disorders: No Adverse Reaction/Blood Tranf: No (N/A) Family Medical History Cancer, Diabetes, GI Disease Physical Exam Vital Signs Vital Signs - First Documented 05/01/22 17:47 Temp 36.7 Pulse 70 Resp 17 B/P (MAP) 132/86 (101) Pulse Ox 96 O2 Delivery Room Air Capillary Refill : Less Than 3 Seconds Height, Weight, BMI Height: 5'8.00" Weight: 235lbs. 4.0oz. [id number]; 39.00 BMI Method:Stated General Appearance: No Apparent Distress, WD/WN HEENT: PERRL/EOMI, TMs Normal, Normal ENT Inspection, Pharynx Normal Neck: Full Range of Motion, Normal Inspection, Non Tender, Supple Respiratory: Chest Non Tender, Lungs Clear, Normal Breath Sounds, No Accessory Muscle Use, No Respiratory Distress Cardiovascular: Regular Rate, Rhythm, No Edema, No Gallop, No JVD, No Murmur Gastrointestinal: Normal Bowel Sounds, No Organomegaly, No Pulsatile Mass, Non Tender Extremity: Normal Capillary Refill, Normal Inspection, Normal Range of Motion, No Calf Tenderness Neurologic/Psychiatric: Alert, Oriented x3, No Motor/Sensory Deficits, Normal Mood/Affect Skin: Normal Color, Warm/Dry Progress/Results/Core Measures Results/Orders Lab Results Laboratory Tests Test 05/01/22 18:05 05/01/22 21:08 Range/Units White Blood Count 10.8 4.3-11.0 10^3/uL Red Blood Count 4.64 4.30-5.52 10^6/uL Hemoglobin 15.2 13.3-17.7 g/dL Hematocrit 44 40-54 % Mean Corpuscular Volume 94 80-99 fL Mean Corpuscular Hemoglobin 33 25-34 pg Mean Corpuscular Hemoglobin Concent 35 32-36 g/dL Red Cell Distribution Width 12.6 10.0-14.5 % Platelet Count 240 130-400 10^3/uL Mean Platelet Volume 9.9 9.0-12.2 fL Immature Granulocyte % (Auto) 0 % Neutrophils (%) (Auto) 43 42-75 % Lymphocytes (%) (Auto) 42 12-44 % Monocytes (%) (Auto) 9 0-12 % Eosinophils (%) (Auto) 5 0-10 % Basophils (%) (Auto) 1 0-10 % Neutrophils # (Auto) 4.7 1.8-7.8 10^3/uL Lymphocytes # (Auto) 4.5 H 1.0-4.0 10^3/uL Monocytes # (Auto) 1.0 0.0-1.0 10^3/uL Eosinophils # (Auto) 0.6 H 0.0-0.3 10^3/uL Basophils # (Auto) 0.1 0.0-0.1 10^3/uL Immature Granulocyte # (Auto) 0.0 0.0-0.1 10^3/uL Prothrombin Time 13.0 12.2-14.7 SEC INR Comment 0.9 0.8-1.4 Activated Partial Thromboplast Time 32 24-35 SEC Sodium Level 144 135-145 MMOL/L Potassium Level 4.4 3.6-5.0 MMOL/L Chloride Level 112 H 98-107 MMOL/L Carbon Dioxide Level 19 L 21-32 MMOL/L Anion Gap 13 5-14 MMOL/L Blood Urea Nitrogen 12 7-18 MG/DL Creatinine 1.11 0.60-1.30 MG/DL Estimat Glomerular Filtration Rate 82 BUN/Creatinine Ratio 11 Glucose Level 89 70-105 MG/DL Calcium Level 9.1 8.5-10.1 MG/DL Corrected Calcium 8.9 8.5-10.1 MG/DL Magnesium Level 2.1 1.6-2.4 MG/DL Total Bilirubin 0.5 0.1-1.0 MG/DL Aspartate Amino Transf (AST/SGOT) 38 H 5-34 U/L Alanine Aminotransferase (ALT/SGPT) 53 0-55 U/L Alkaline Phosphatase 59 40-136 U/L Myoglobin 68.1 10.0-92.0 NG/ML Troponin I < 0.028 < 0.028 <0.028 NG/ML B-Type Natriuretic Peptide 10.9 <100.0 PG/ML Total Protein 7.4 6.4-8.2 GM/DL Albumin 4.3 3.2-4.5 GM/DL Lipase 28 8-78 U/L Thyroid Stimulating Hormone (TSH) 1.01 0.35-4.94 UIU/ML My Orders Orders - PAWAN SESAY PA Cbc With Automated Diff (05/01/22 18:12) Magnesium (05/01/22 18:12) Chest 1 View, Ap/Pa Only (05/01/22 18:12) Comprehensive Metabolic Panel (05/01/22 18:12) Myoglobin Serum (05/01/22 18:12) Protime With Inr (05/01/22 18:12) Partial Thromboplastin Time (05/01/22 18:12) Monitor-Rhythm Ecg Trace Only (05/01/22 18:12) Ed Iv/Invasive Line Start (05/01/22 18:12) Lipase (05/01/22 18:12) Bnp [place] (05/01/22 18:12) Troponin I [place] (05/01/22 18:12) Aspirin Chewable Tablet (Baby Aspirin Ch (05/01/22 18:15) Thyroid Stimulating Hormone (05/01/22 18:12) Troponin I [place] (05/01/22 21:05) Medications Given in ED Vital Signs/I&O 05/01/22 17:47 Temp 36.7 Pulse 70 Resp 17 B/P (MAP) 132/86 (101) Pulse Ox 96 O2 Delivery Room Air Blood Pressure Mean: 101 Comment Sinus rhythm, 73 bpm, QRS duration 94 MS, QTc 410 MS Departure Communication (PCP) Patient presents ED with heart palpitation short of breath. Symptoms started around 3pm . No history of coronary artery disease, CHF or COPD. Heart score 3 secondary to risk factors. EKG showed normal sinus rhythm. Patient states he was having these heart palpitations that resulted in short of breath. Patient did have episodes where he threw intermittent PVCs which he reports that this was the sensation that he was feeling. No recent travels or surgeries. No appreciation of leg swelling. But states he has had intermittent leg swelling improved over the past few days cardiac work-up showed normal troponin and BNP. He is not hypoxic or tachycardic. Normal blood pressure. He is currently on metoprolol. Patient chest x-ray negative for pneumonia, pneumothorax. Patient lab work was otherwise unremarkable. Normal TSH and electrolytes. Due to patient's current complaints which feels to be more palpitations recommend a serial troponin which was ordered 3 hours from his first draw. This was again negative. Patient remained asymptomatic. On exertion had a few PVCs but otherwise unremarkable for chest pain. No consecutive PVCs. Patient will be recommend to follow-up outpatient with cardiology. Provided this in discharge. Discussed taking a baby aspirin daily. If any worsening symptoms return back to ED. Recommend elevating feet at night. Impression Primary Impression: Palpitations Disposition: HOME, SELF-CARE Condition: Stable Departure-Patient Inst. Decision time for Depature: 22:01 Referrals: [facility] [place] (PCP) Primary Care Physician LINDA RUSH (Family) Primary Care Physician SOHAIL VARGAS MD Patient Instructions: Palpitations (DC) Add. Discharge Instructions: Recommend following up outpatient with cardiology for further evaluation. If any worsening symptoms to return back to ED All discharge instructions reviewed with patient and/or family. Voiced understanding. PAWAN SESAY May 01, 2022 18:15
[2022-05-01 18:18] LABS: BASOPHILS # (AUTO) 0.1 10^3/uL (0.0-0.1); BASOPHILS % (AUTO) 1 % (0-10); EOSINOPHILS # (AUTO) 0.6 10^3/uL (0.0-0.3); EOSINOPHILS % (AUTO) 5 % (0-10); HEMATOCRIT 44 % (40-54); HEMOGLOBIN 15.2 g/dL (13.3-17.7); LYMPHOCYTES # (AUTO) 4.5 10^3/uL (1.0-4.0); LYMPHOCYTES % (AUTO) 42 % (12-44); MEAN CORPUSCULAR HEMOGLOBIN 33 pg (25-34); MEAN CORPUSCULAR HGB CONC 35 g/dL (32-36); MEAN CORPUSCULAR VOLUME 94 fL (80-99); MEAN PLATELET VOLUME 9.9 fL (9.0-12.2); MONOCYTES % (AUTO) 9 % (0-12); NEUTROPHILS # (AUTO) 4.7 10^3/uL (1.8-7.8); NEUTROPHILS % (AUTO) 43 % (42-75); PLATELET COUNT 240 10^3/uL (130-400); WHITE BLOOD COUNT 10.8 10^3/uL (4.3-11.0)
[2022-05-01 18:31] LABS: INR 0.9 (0.8-1.4)
[2022-05-01 18:51] LABS: ALBUMIN 4.3 GM/DL (3.2-4.5); BILIRUBIN,TOTAL 0.5 MG/DL (0.1-1.0); CALCIUM 9.1 MG/DL (8.5-10.1); CREATININE SERUM 1.11 MG/DL (0.60-1.30); MAGNESIUM 2.1 MG/DL (1.6-2.4); POTASSIUM 4.4 MMOL/L (3.6-5.0); TOTAL PROTEIN 7.4 GM/DL (6.4-8.2)
--- NOTE | 2022-05-01 19:09 | Diagnostic Imaging Report ---
INDICATION: Chest pain. COMPARISON: 06/18/2019. FINDINGS: Single frontal view of the chest demonstrates normal heart size and pulmonary vascularity. The lungs are well aerated and clear. No large pleural effusion or pneumothorax is seen. The visualized osseous structures show no acute abnormality. IMPRESSION: No acute cardiopulmonary process. Dictated by: Dictated on workstation # [id number]
== END 2022-05-01 22:10 | disposition home or self-care (01) ==
LOC: EDUNIT# 17:38 → ER 17:39
DX: R00.2 Palpitations (principal); I10 Essential (primary) hypertension; Z87.891 Personal history of nicotine dependence; Z28.310 Unvaccinated for COVID-19
CPT/HCPCS: 36415; 71045; 80053; 83690; 83735; 83874; 83880; 84443; 84484; 85025; 85610; 85730; 93005; 93041

== ENCOUNTER 2022-11-02 23:27 | Inpatient (IN) | payer BC ==
[~2022-11-02] VITALS: Ht 175.3 cm; Wt 124.0 kg
[2022-11-02] MEDS ORDERED: PIPERACILLIN SODIUM/TAZOBACTAM 4.5 GM in NS (IVPB) 100 ML IV ONE (23:45)
[2022-11-02] MEDS ORDERED: LACTATED RINGERS 1,000 ML IV ONE (23:45)
--- NOTE | 2022-11-02 23:50 | ED Abdominal Pain ---
General Chief Complaint: Abdominal/GI Problems Stated Complaint: ABD PAIN Nursing Triage Note: PT AMB TO ED BY POV WITH C/O LLQ PAIN. REPORTS PAIN BEGAN FRIDAY, DENIES N/V. PT HAS TAKEN MIRALAX TODAY AND HAD MULTIPLE LIQUID BM. REPORTS INTERMITTENT FEVER. PT HAS HX DIVERTICULITIS. Source of Information: Patient History of Present Illness Date Seen by Provider: Nov 02, 2022 Time Seen by Provider: 23:39 Initial Comments PT ARRIVES VIA POV FROM HOME C/O LLQ PAIN SINCE FRIDAY NO NAUSEA/VOMITING HAS BEEN TAKING MIRALAX AND HAS HAD 5 VERY SMALL, LOOSE STOOLS TODAY--LAST STOOL 2200 TONIGHT HAD FEVER OF 100.8 TONIGHT, TOOK IBUPROFEN AROUND 2100 ATE GRILLED CHICKEN AND SALAD AT 1700 TONIGHT, HAS BEEN DRINKING AND EATING NORMALLY ALL DAY NO URINARY SYMPTOMS HE HAS HAD DIVERTICULITIS IN THE PAST, WITH HISTORY OF MICROPERFORATION--NO SURGERY NO PRIOR ABDOMINAL SURGERIES OF ANY KIND HE HAD COLONSCOPY BY DR. MARROQUIN 4 YEARS AGO, WAS INCOMPLETE DUE PT ASPIRATING DURING THE PROCEDURE. HE HAS HAD C. DIFFICILE IN THE PAST HAS HISTORY OF HTN ON METOPROLOL NO OTHER MEDICAL PROBLEMS Allergies and Home Medications Allergies Coded Allergies: No Known Drug Allergies (Unverified , 06/15/19) Patient Home Medication List Home Medication List Reviewed: Yes L.acidoph & Paracasei,B.lactis (Probiotic) 1 Each Capsule, 1 EACH PO DAILY, (Reported) Entered as Reported by: SOLA GUERRA on 06/14/21 1043 Oxycodone HCl/Acetaminophen (Percocet 5-325 mg Tablet) 1 Each Tablet, 1 TAB PO Q4H PRN for PAIN-MODERATE (5-7) Prescribed by: COREY ERNANDEZ MD on 06/15/21 1109 Review of Systems Review of Systems Constitutional: see HPI, fever Respiratory: No Symptoms Reported Cardiovascular: No Symptoms Reported Gastrointestinal: See HPI, Abdominal Pain, Constipated, Diarrhea; Denies Nausea, Denies Poor Appetite, Denies Poor Fluid Intake, Denies Vomiting Genitourinary: No Symptoms Reported Musculoskeletal: no symptoms reported Skin: no symptoms reported Psychiatric/Neurological: No Symptoms Reported Endocrine: No Symptoms Reported Hematologic/Lymphatic: No Symptoms Reported Past Kxtqmkx-Ybmakd-Fmszcc Hx Patient Social History Tobacco Use?: Yes Tobacco type used: Cigarettes Smoking Status: Former Smoker Use of E-Cig and/or Vaping dev: No Substance use?: No Alcohol Use?: No Pt feels they are or have been: No Immunizations Up To Date Tetanus Booster (TDap): Unknown Influenza Vaccine Up-to-Date: No; Not Current Seasonal Allergies Seasonal Allergies: No Past Medical History Surgery/Hospitalization HX: HTN R BICEP REPAIR Surgeries: Yes ([place] teeth removed / Colonoscopy) Orthopedic Respiratory: No Currently Using CPAP: No Currently Using BIPAP: No Cardiac: Yes Hypertension, Palpitations Neurological: No Reproductive Disorders: No Sexually Transmitted Disease: No HIV/AIDS: No Genitourinary: Yes Kidney Stones Gastrointestinal: Yes (Diverticulitis) Diverticulosis, Chronic Diarrhea, C-Diff Musculoskeletal: No Endocrine: No HEENT: No Loss of Vision: Denies Hearing Impairment: Denies Cancer: No Psychosocial: No Integumentary: No Blood Disorders: No Adverse Reaction/Blood Tranf: No (N/A) Family Medical History Cancer, Diabetes, GI Disease SOCIAL HISTORY: -SMOKED 2 PPD, QUIT 11/2021 -DENIES VAPING -DENIES SMOKING -DENIES DRUG USE PAST SURGICAL HISTORY: -COLONOSCOPY 2018--INCOMPLETE DUE TO ASPIRATION DURING PROCEDURE -WISDOM TEETH REMOVED -RIGHT BICEPS TENDON REPAIR Physical Exam Vital Signs Vital Signs - First Documented 11/02/22 23:35 Temp 35.8 Pulse 96 Resp 20 B/P (MAP) 138/92 (107) Pulse Ox 96 O2 Delivery Room Air Capillary Refill : Less Than 3 Seconds Height/Weight/BMI Height: 5'8.00" Weight: 235lbs. 4.0oz. 106.119761vb; 39.00 BMI Method:Stated General Appearance: WD/WN, no apparent distress HEENT: No scleral icterus (R), No scleral icterus (L) Neck: normal inspection Respiratory: normal breath sounds, no respiratory distress, no accessory muscle use Cardiovascular: regular rate, rhythm, no murmur Gastrointestinal: soft, abnormal bowel sounds (DECREASED); No distended; guarding, rebound, tenderness (LLQ TENDERNESS); No hernia, No mass Extremities: normal inspection, normal capillary refill Back: no CVA tenderness Neurologic/Psychiatric: game manager II-XII nml as tested, no motor/sensory deficits, alert, normal mood/affect, oriented x 3 Skin: normal color, warm/dry; No rash Focused Exam Sepsis Stage: Sepsis Possible Source: GI Tract/Intra-Abdominal Lactate Level 11/03/22 00:00: Lactic Acid Level 0.87 Time of Focused Exam: 01:00 Respiratory: Normal Breath Sounds, No Accessory Muscle Use, No Respiratory Distress Cardiovascular: Regular Rate, Rhythm, No Murmur Skin: normal color, warm/dry Lactic Acid Level Laboratory Tests Test 11/03/22 00:00 Lactic Acid Level 0.87 MMOL/L (0.50-2.00) Within 3hrs of presentation: Admin fluids, Admin ABX, Blood cultures prior to ABX's, Focus exam, Lactate level Progress/Results/Core Measures Results/Orders Lab Results Laboratory Tests Test 11/02/22 23:39 11/03/22 00:00 11/03/22 00:43 Range/Units White Blood Count 15.8 H 4.3-11.0 10^3/uL Red Blood Count 4.75 4.30-5.52 10^6/uL Hemoglobin 15.6 13.3-17.7 g/dL Hematocrit 45 40-54 % Mean Corpuscular Volume 94 80-99 fL Mean Corpuscular Hemoglobin 33 25-34 pg Mean Corpuscular Hemoglobin Concent 35 32-36 g/dL Red Cell Distribution Width 12.4 10.0-14.5 % Platelet Count 249 130-400 10^3/uL Mean Platelet Volume 9.8 9.0-12.2 fL Immature Granulocyte % (Auto) 0 % Neutrophils (%) (Auto) 63 42-75 % Lymphocytes (%) (Auto) 25 12-44 % Monocytes (%) (Auto) 9 0-12 % Eosinophils (%) (Auto) 3 0-10 % Basophils (%) (Auto) 1 0-10 % Neutrophils # (Auto) 10.0 H 1.8-7.8 10^3/uL Lymphocytes # (Auto) 3.9 1.0-4.0 10^3/uL Monocytes # (Auto) 1.3 H 0.0-1.0 10^3/uL Eosinophils # (Auto) 0.4 H 0.0-0.3 10^3/uL Basophils # (Auto) 0.1 0.0-0.1 10^3/uL Immature Granulocyte # (Auto) 0.1 0.0-0.1 10^3/uL Neutrophils % (Manual) 65 % Lymphocytes % (Manual) 23 % Monocytes % (Manual) 7 % Eosinophils % (Manual) 5 % Blood Morphology Comment NORMAL Erythrocyte Sedimentation Rate 9 0-15 MM/HR Prothrombin Time 13.3 12.2-14.7 SEC INR Comment 1.0 0.8-1.4 Activated Partial Thromboplast Time 34 24-35 SEC Sodium Level 140 135-145 MMOL/L Potassium Level 3.9 3.6-5.0 MMOL/L Chloride Level 109 H 98-107 MMOL/L Carbon Dioxide Level 19 L 21-32 MMOL/L Anion Gap 12 5-14 MMOL/L Blood Urea Nitrogen 14 7-18 MG/DL Creatinine 1.07 0.60-1.30 MG/DL Estimat Glomerular Filtration Rate 86 BUN/Creatinine Ratio 13 Glucose Level 120 H 70-105 MG/DL Calcium Level 9.0 8.5-10.1 MG/DL Corrected Calcium 8.9 8.5-10.1 MG/DL Magnesium Level 1.9 1.6-2.4 MG/DL Total Bilirubin 0.6 0.1-1.0 MG/DL Aspartate Amino Transf (AST/SGOT) 25 5-34 U/L Alanine Aminotransferase (ALT/SGPT) 39 0-55 U/L Alkaline Phosphatase 59 40-136 U/L C-Reactive Protein High Sensitivity 3.99 H 0.00-0.50 MG/DL Total Protein 7.5 6.4-8.2 GM/DL Albumin 4.1 3.2-4.5 GM/DL Amylase Level 39 25-125 U/L Lipase 24 8-78 U/L Lactic Acid Level 0.87 0.50-2.00 MMOL/L Urine Color YELLOW Urine Clarity CLEAR Urine pH 6.0 5-9 Urine Specific [place] 1.020 1.016-1.022 Urine Protein TRACE H NEGATIVE Urine Glucose (UA) NEGATIVE NEGATIVE Urine Ketones NEGATIVE NEGATIVE Urine Nitrite NEGATIVE NEGATIVE Urine Bilirubin NEGATIVE NEGATIVE Urine Urobilinogen 0.2 < = 1.0 MG/DL Urine Leukocyte Esterase NEGATIVE NEGATIVE Urine RBC (Auto) 1+ H NEGATIVE Urine RBC 0-2 /HPF Urine WBC NONE /HPF Urine Crystals PRESENT H /LPF Urine Amorphous Sediment MOD DANAY URATES H /LPF Urine Bacteria NEGATIVE /HPF Urine Casts NONE /LPF Urine Mucus NEGATIVE /LPF Urine Culture Indicated NO Micro Results Microbiology 11/03/22 Blood Culture - Preliminary, Resulted No growth 11/03/22 Blood Culture - Preliminary, Resulted No growth My Orders Orders - TRINH FORTUNE DO Ed Iv/Invasive Line Start (11/02/22 23:44) Monitor-Rhythm Ecg Trace Only (11/02/22 23:44) Amylase (11/02/22 23:44) Cbc With Automated Diff (11/02/22:44) Comprehensive Metabolic Panel (11/02/22:44) Hs C Reactive Protein (11/02/22:44) Lactic Acid Analyzer (11/02/22:44) Lipase (11/02/22:44) Magnesium (11/02/22:44) Protime With Inr (11/02/22:44) Partial Thromboplastin Time (11/02/22:44) Ua Culture If Indicated (11/02/22:44) Blood Culture (11/02/22:44) Erythrocyte Sedimentation Rate (11/02/22:44) Ed Iv/Invasive Line Start (11/02/22:44) Lactated Ringers (Lr 1000 Ml Iv Solution (11/02/22 23:45) Urine Culture (11/02/22 23:44) Ed Iv/Invasive Line Start (11/02/22:44) Ed Iv/Invasive Line Start (11/02/22 23:44) Vital Signs Adult Sepsis Patie Q15M (11/02/22 23:44) O2 (11/02/22 23:44) Remove Rings In Anticipation O (11/02/22:44) Piperacillin Sodium/Tazobactam (Zosyn Vi (11/02/22 23:45) Ct Abdomen/Pelvis W (11/03/22 00:01) Chest 1 View, Ap/Pa Only (11/03/22 00:01) Fentanyl Inj (Sublimaze Injection) (11/03/22 00:07) Manual Differential (11/02/22 23:39) Iohexol Injection (Omnipaque 350 Mg/Ml 1 (11/03/22 01:00) Received Contrast (Hold Metformin- Contr (11/03/22 01:00) Ns (Ivpb) (Sodium Chloride 0.9% Ivpb Bag (11/03/22 01:00) Fentanyl Inj (Sublimaze Injection) (11/03/22 01:59) Vital Signs/I&O 11/02/22 23:35 Temp 35.8 Pulse 96 Resp 20 B/P (MAP) 138/92 (107) Pulse Ox 96 O2 Delivery Room Air Blood Pressure Mean: 107 Progress Progress Note : Progress Note SEPSIS PROTOCOL INITIATED BASED ON FEVER AT HOME, SUSPECTED DIVERTICULITIS GIVEN: -IV FLUIDS -FENTANYL FOR PAIN -ANTIBIOTICS SYMPTOMS MUCH IMPROVED WITH PAIN MEDICATIONS VITALS STABLE NO DETERIORATION IN PT'S CONDITION DURING ER STAY REVIEWED PRIOR RECORDS INCLUDING ER VISITS, ADMITS, H&P'S, CONSULTS, TESTS/PROCEDURES AND DISCHARGE SUMMARIES DISCUSSED TEST RESULTS, NEED FOR ADMIT AND PT IS AGREEABLE TO PLAN. Diagnostic Imaging Comments CXR--NO ACUTE PROCESS, PENDING RADIOLOGIST REVIEW CT ABDOMEN/PELVIS--PER STAT RAD VIA FAX AT 0206 -MILD TO MODERATED SIGMOID DIVERTICULITIS, NO EVIDENCE OF PERFORATION, OBSTRUCTION OR ABSCESS -CHOLELITHIASIS -MILD FATTY LIVER CHANGES, SMALL BENIGN RIGHT HEPATIC CYST. Reviewed: Reviewed by Me Departure Communication (Admissions) 0015--SPOKE WITH DR. ABBASI, HOSPITALIST, ACCEPTS PT FOR ADMIT, CT IS PENDING. WILL CONSULT SURGERY. 0206--SPOKE WITH DR. HERNANDEZ, SURGEON, FOR CONSULT. ORDERS NOTED. Impression Primary Impression: Sepsis Additional Impressions: Acute diverticulitis Cholelithiasis HTN (hypertension) Disposition: ADMITTED INPATIENT Condition: Improved Admissions Decision to Admit Reason: Admit from ER (General) Decision to Admit/Date: Nov 03, 2022 Time/Decision to Admit Time: 02:10 Departure-Patient Inst. Referrals: [facility] (PCP) Primary Care Physician LINDA RUSH (Family) Primary Care Physician TRINH FORTUNE DO Nov 02, 2022 23:50
[2022-11-03] MEDS ORDERED: fentaNYL INJ 100 MCG/2 ML AMP IVP STA ×2 (00:07→01:59)
[2022-11-03 00:09] LABS: BASOPHILS # (AUTO) 0.1 10^3/uL (0.0-0.1); BASOPHILS % (AUTO) 1 % (0-10); EOSINOPHILS # (AUTO) 0.4 10^3/uL (0.0-0.3); EOSINOPHILS % (AUTO) 3 % (0-10); HEMATOCRIT 45 % (40-54); HEMOGLOBIN 15.6 g/dL (13.3-17.7); LYMPHOCYTES # (AUTO) 3.9 10^3/uL (1.0-4.0); LYMPHOCYTES % (AUTO) 25 % (12-44); MEAN CORPUSCULAR HEMOGLOBIN 33 pg (25-34); MEAN CORPUSCULAR HGB CONC 35 g/dL (32-36); MEAN CORPUSCULAR VOLUME 94 fL (80-99); MEAN PLATELET VOLUME 9.8 fL (9.0-12.2); MONOCYTES # (AUTO) 1.3 10^3/uL (0.0-1.0); MONOCYTES % (AUTO) 9 % (0-12); NEUTROPHILS % (AUTO) 63 % (42-75); PLATELET COUNT 249 10^3/uL (130-400); WHITE BLOOD COUNT 15.8 10^3/uL (4.3-11.0)
[2022-11-03 00:14] LABS: PROTHROMBIN TIME PATIENT 13.3 SEC (12.2-14.7)
[2022-11-03 00:20] LABS: ALBUMIN 4.1 GM/DL (3.2-4.5); BILIRUBIN,TOTAL 0.6 MG/DL (0.1-1.0); CREATININE SERUM 1.07 MG/DL (0.60-1.30); MAGNESIUM 1.9 MG/DL (1.6-2.4); POTASSIUM 3.9 MMOL/L (3.6-5.0); TOTAL PROTEIN 7.5 GM/DL (6.4-8.2)
[2022-11-03 00:42] LABS: ERYTHROCYTE SEDIMENTATION RATE 9 MM/HR (0-15)
[2022-11-03 00:50] LABS: BILIRUBIN,URINE NEGATIVE (NEGATIVE); CLARITY,URINE CLEAR; COLOR,URINE YELLOW; GLUCOSE, URINE (UA) NEGATIVE (NEGATIVE); KETONES,URINE NEGATIVE (NEGATIVE); LEUKOCYTE ESTERASE ,URINE NEGATIVE (NEGATIVE); NITRITE,URINE NEGATIVE (NEGATIVE); PROTEIN,URINE TRACE (NEGATIVE)
[2022-11-03] MEDS ORDERED: IOHEXOL 350 MG/ML 100 ML (OMNIPAQUE 350) VIAL IV ONE (01:00)
[2022-11-03] MEDS ORDERED: HOLD METFORMIN - RECEIVED CONTRAST 20 ML VIAL IV SCH (01:00)
[2022-11-03] MEDS ORDERED: NS 100 ML (IVPB) BAG IV ONE (01:00)
[2022-11-03 01:03] LABS: EOSINOPHILS % (MANUAL) 5 %; LYMPHOCYTES % (MANUAL) 23 %; MONOCYTES % (MANUAL) 7 %; NEUTROPHILS % (MANUAL) 65 %
[2022-11-03 01:04] LABS: RBC MORPH NORMAL
[2022-11-03 01:08] LABS: AMORPHOUS SEDIMENT,UR MOD AMOR URATES /LPF; BACTERIA,URINE NEGATIVE /HPF; RBC,URINE 0-2 /HPF
[2022-11-03 03:11] VITALS: BP 135/85
[2022-11-03] MEDS ORDERED: ONDANSETRON 4 MG/2 ML (SDV) Z0FRAN IV PRN ×2 (05:00→07:30)
[2022-11-03] MEDS ORDERED: ACETAMINOPHEN 500 MG TAB (TYLENOL) PO PRN (05:00)
[2022-11-03] MEDS: metroNIDAZOLE 500 MG/100 ML IVPB (PRE-MIX) IV SCH ×2 (05:01→18:23)
[2022-11-03] MEDS: LACTATED RINGERS 1,000 ML IV SCH ×2 (05:02→13:33)
[2022-11-03] MEDS: fentaNYL INJ 100 MCG/2 ML AMP IV PRN ×3 (05:07→12:09)
[2022-11-03] MEDS: PIPERACILLIN SODIUM/TAZOBACTAM 4.5 GM in NS (IVPB) 100 ML IV SCH ×3 (06:06→21:08)
[2022-11-03 06:22] LABS: MEAN PLATELET VOLUME 10.2 fL (9.0-12.2); NEUTROPHILS % (AUTO) 55 % (42-75)
[2022-11-03 06:24] LABS: BASOPHILS # (AUTO) 0.1 10^3/uL (0.0-0.1); BASOPHILS % (AUTO) 1 % (0-10); EOSINOPHILS # (AUTO) 0.4 10^3/uL (0.0-0.3); EOSINOPHILS % (AUTO) 3 % (0-10); HEMATOCRIT 43 % (40-54); HEMOGLOBIN 14.8 g/dL (13.3-17.7); LYMPHOCYTES # (AUTO) 3.8 10^3/uL (1.0-4.0); LYMPHOCYTES % (AUTO) 31 % (12-44); MEAN CORPUSCULAR HEMOGLOBIN 32 pg (25-34); MEAN CORPUSCULAR HGB CONC 35 g/dL (32-36); MEAN CORPUSCULAR VOLUME 94 fL (80-99); MONOCYTES # (AUTO) 1.3 10^3/uL (0.0-1.0); MONOCYTES % (AUTO) 10 % (0-12); NEUTROPHILS # (AUTO) 6.6 10^3/uL (1.8-7.8); PLATELET COUNT 210 10^3/uL (130-400); WHITE BLOOD COUNT 12.2 10^3/uL (4.3-11.0)
[2022-11-03 06:32] LABS: ALBUMIN 3.7 GM/DL (3.2-4.5); POTASSIUM 4.2 MMOL/L (3.6-5.0)
[2022-11-03 06:33] LABS: CALCIUM 8.5 MG/DL (8.5-10.1)
[2022-11-03 06:34] LABS: TOTAL PROTEIN 6.9 GM/DL (6.4-8.2)
[2022-11-03 06:36] LABS: BILIRUBIN,TOTAL 0.8 MG/DL (0.1-1.0)
[2022-11-03 06:38] LABS: CREATININE SERUM 0.99 MG/DL (0.60-1.30)
--- NOTE | 2022-11-03 07:05 | Diagnostic Imaging Report ---
INDICATION: Fever and abdominal pain. COMPARISON: 05/01/2022. FINDINGS: The lungs appear clear without focal airspace opacities or consolidation. There are no findings of an effusion. There is no evidence of a pneumothorax. Heart size and mediastinal contours appear appropriate. Pulmonary vascularity appears within normal limits. There is no acute or suspicious osseous abnormality demonstrated. IMPRESSION: No radiographic evidence of an acute cardiopulmonary process. Dictated by: Dictated on workstation # [id number]
--- NOTE | 2022-11-03 07:08 | Diagnostic Imaging Report ---
EXAMINATION: CT abdomen and pelvis with intravenous contrast. TECHNIQUE: Multiple contiguous axial images were obtained through the abdomen and pelvis after the uneventful administration of intravenous contrast. All CT scans use one or more of the following dose optimizing techniques: automated exposure control, MA and/or KvP adjustment based on patient size and exam type or iterative reconstruction. HISTORY: Left lower quadrant pain. History of diverticulitis. COMPARISON: 05/30/2019. FINDINGS: The heart is unremarkable. The included lung bases are clear. There is hepatic steatosis. Cyst is seen in the right hepatic lobe measuring 1.2 cm. The portal vein is patent. A gallstone is seen within the gallbladder lumen without CT evidence of acute cholecystitis. The spleen, pancreas, adrenal glands, and kidneys have a normal appearance. There is no pathologically enlarged mesenteric or retroperitoneal adenopathy. The bowel loops are nondilated. The appendix is visualized in the right lower quadrant and has a normal appearance. Diverticuli are seen in the sigmoid colon with pericolonic inflammatory changes adjacent to the proximal portion of the sigmoid colon. There is no free fluid or free air. No acute osseous abnormalities. Ureters and bladder are grossly normal. There is no free air, loculated collection, or adenopathy in the pelvis. IMPRESSION: 1. Findings consistent with acute uncomplicated diverticulitis involving the proximal sigmoid colon. 2. Hepatic steatosis. 3. Cholelithiasis without CT evidence of acute cholecystitis. Agree with overnight report. Dictated by: Dictated on workstation # [id number]
--- NOTE | 2022-11-03 07:27 | History & Physical-Hospitalist ---
History of Present Illness HPI/Chief Complaint CC: Abdominal pain from acute diverticulitis HPI: This is a 47yoWM clinic patient of [facility] who presented to the ER with a bdominal pain and was found to have acute diverticulitis and in need of bowel rest and IV abx and general surgery consultation. He has never had this before. His is at bedside. Works for [employer] for 23 years. Former smoker and stopped 1 year ago. Pain improved with pain meds. Source: patient Exam Limitations: no limitations Date Seen 11/03/22 Time Seen by a Provider: 11:00 Attending Physician [facility] PCP Admitting Physician: Sonia Martinez DO Attending Physician: Sonia Martinez DO Referring Physician Date of Admission Nov 03, 2022 at 02:10 Home Medications & Allergies Home Medications Reviewed patient Home Medication Reconciliation performed by pharmacy medication reconciliations facility maintenance technician and/or nursing. Patients Allergies have been reviewed. Allergies Allergies Coded Allergies No Known Drug Allergies (Unverified06/15/19) Past Uzcqcsv-Qflotn-Dioqzm Hx Patient Social History Marrital Status: Employed/Student: employed Tobacco Use?: No Smoking Status: Former Smoker Use of E-Cig and/or Vaping dev: No Substance use?: No Alcohol Use?: No Pt feels they are or have been: No Immunizations Up To Date Tetanus Booster (TDap): Unknown Seasonal Allergies Seasonal Allergies: No Current Status Advance Directives: No Communicates: Verbally Primary Language: American Preferred Spoken Language: American Is interpretation needed?: No Sensory deficits: Vision impairment Implanted or Applied Medical D: None Past Medical History Currently Using CPAP: No Currently Using BIPAP: No Palpitations Sexually Transmitted Disease: No HIV/AIDS: No Kidney Stones Diverticulosis, Chronic Diarrhea Loss of Vision: Denies Hearing Impairment: Denies Blood Disorders: No Adverse Reaction/Blood Tranf: No (N/A) Family Medical History Cancer, Diabetes, GI Disease Review of Systems Constitutional: see HPI Gastrointestinal: abdominal pain, loss of appetite, nausea Physical Exam Physical Exam Vital Signs Vital Signs - First Documented 11/02/22 23:35 Temp 35.8 Pulse 96 Resp 20 B/P (MAP) 138/92 (107) Pulse Ox 96 O2 Delivery Room Air Capillary Refill : Less Than 3 Seconds Height, Weight, BMI Height: 5'8.00" Weight: 235lbs. 4.0oz. [id number]; 40.35 BMI Method:Stated General Appearance: No Apparent Distress, Obese Eyes: Right Eye Normal Inspection, Right Eye PERRL HEENT: PERRL/EOMI, Normal ENT Inspection, Pharynx Normal, Moist Mucous Membranes Neck: Full Range of Motion, Normal Inspection, Non Tender Respiratory: Chest Non Tender, Lungs Clear, Normal Breath Sounds, No Accessory Muscle Use, No Respiratory Distress Cardiovascular: Regular Rate, Rhythm, No Edema, No Gallop, No JVD, No Murmur, Normal Peripheral Pulses Gastrointestinal: Normal Bowel Sounds, No Organomegaly, No Pulsatile Mass, Soft, Tenderness Back: Normal Inspection, No CVA Tenderness, No Vertebral Tenderness Extremity: Normal Capillary Refill, Normal Inspection, Normal Range of Motion, Non Tender, No Calf Tenderness, No Pedal Edema Neurologic/Psychiatric: Alert, Oriented x3, No Motor/Sensory Deficits, Normal Mood/Affect Skin: Normal Color, Warm/Dry Lymphatic: No Adenopathy Results Results/Procedures Labs Laboratory Tests 11/02/22 23:39 11/03/22 05:50 Patient resulted labs reviewed. Assessment/Plan Admission Diagnosis Assessment: Acute diverticulitis Former smoker IBS Obesity Plan: Pain control IV abx Monitor closely Admission Status: Inpatient Order (span 2 midnights) Reason for Inpatient Admission: acute diverticulitis SONIA MARTINEZ DO Nov 03, 2022 07:27
[2022-11-03] MEDS ORDERED: MILK OF MAGNESIA 400 MG/5 ML 30 ML UDC PO PRN (07:30)
[2022-11-03] MEDS ORDERED: MELATONIN 3 MG TABLET PO PRN (07:30)
[2022-11-03] MEDS ORDERED: polyethylene glycoL POWDER 17 GM (MIRALAX) PACK PO PRN (07:30)
[2022-11-03] MEDS ORDERED: LACTULOSE SYRUP 10GM/15ML (ENULOSE) 30ML UDC PO PRN (07:30)
[2022-11-03] MEDS ORDERED: BISACODYL 10 MG SUPP (DULCOLAX) PR PRN (07:30)
[2022-11-03] MEDS ORDERED: diphenhydrAMINE 25 MG TAB (BENADRYL) PO PRN (07:30)
[2022-11-03] MEDS ORDERED: ACETAMINOPHEN 325 MG TABLET PO PRN (07:30)
[2022-11-03] MEDS ORDERED: diphenhydrAMINE 50 MG/ML INJ (BENADRYL) IVP PRN (07:30)
[2022-11-03] MEDS ORDERED: ONDANSETRON 4 MG (ZOFRAN) ORAL DISSOLVE TAB PO PRN (07:30)
[2022-11-03] MEDS ORDERED: ANTACID SUSP 30 ML UDC (MYLANTA) PO PRN (07:30)
[2022-11-03] MEDS ORDERED: CALCIUM CARBONATE 500 MG (TUMS) TAB.CHEW PO PRN (07:30)
[2022-11-03 07:50] VITALS: BP 128/75
[2022-11-03] MEDS: PANTOPRAZOLE 40 MG (PROTONIX) VIAL IV SCH (08:15)
[2022-11-03] MEDS: DOCUSATE SODIUM 100 MG (COLACE) CAP PO SCH ×2 (08:16→19:08)
[2022-11-03] MEDS: ENOXAPARIN 40 MG/0.4 ML (LOVENOX) SYR SC SCH ×2 (08:16→19:09)
[2022-11-03] MEDS: SENNOSIDES 8.6 MG (SENOKOT) TAB PO SCH ×2 (08:16→19:08)
--- NOTE | 2022-11-03 08:31 | Consultation - Surgery ---
KHOI HAYES 11/03/22 0831: History of Present Illness History of Present Illness Patient Consulted On(jairo/time) 11/03/22 08:26 Date Seen by Provider: Nov 03, 2022 Time Seen by Provider: 07:15 History of Present Illness Demetrio Cameron is a 47yo male presenting with Diverticulitis flare. Pt states last Friday he began having dull uncomfortable LLQ pain rated at 5-6/10 that progressed to a 8-9/10 constant pain w/ a characterized feeling of concrete stuck in his gut and associated constipation. Pt states that this has occurred before and the last time it occurred was associated with a microperforation. Nothing makes the pain better or worse, and denies radiation. Pt states that when he developed a fever yesterday, he decided it was time to go to the ED. Pt's current pain is about a 2-3/10 after pain medications were given. Pt endorses Bloating feeling, but denies current fever, nausea, vomiting, chest pain, palpitations, cough, SOB, and numbness and tingling. Allergies and Home Medications Allergies Coded Allergies: No Known Drug Allergies (Unverified , 06/15/19) Patient Home Medication List L.acidoph & Paracasei,B.lactis (Probiotic) 1 Each Capsule, 1 EACH PO DAILY, (Reported) Entered as Reported by: SOLA GUERRA on 06/14/21 1043 Oxycodone HCl/Acetaminophen (Percocet 5-325 mg Tablet) 1 Each Tablet, 1 TAB PO Q4H PRN for PAIN-MODERATE (5-7) Prescribed by: CORYE ERNANDEZ MD on 06/15/21 1109 Past Hloghkb-Vwvvrs-Muecnc Hx Patient Social History Smoking Status: Former Smoker Type Used: Cigarettes 2nd Hand Smoke Exposure: Yes Recent Hopitalizations: No Alcohol Use?: No Have you traveled recently?: No Immunizations Up To Date Tetanus Booster (TDap): Unknown Seasonal Allergies Seasonal Allergies: No Surgeries History of Surgeries: Yes ([place] teeth removed / Colonoscopy) Respiratory History of Respiratory Disorde: No Cardiovascular History of Cardiac Disorders: No Cardiac Disorders: Palpitations Neurological History of Neurological Disord: No Reproductive System Hx Reproductive Disorders: No Sexually Transmitted Disease: No HIV/AIDS: No Genitourinary History of Genitourinary Disor: Yes Genitourinary Disorders: Kidney Stones Gastrointestinal History of Gastrointestinal Di: Yes (Diverticulitis) Gastrointestinal Disorders: Diverticulosis, Chronic Diarrhea Musculoskeletal History of Musculoskeletal Dis: No Endocrine History of Endocrine Disorders: No HEENT History of HEENT Disorders: No Loss of Vision: Denies Hearing Impairment: Denies Cancer History of Cancer: No Psychosocial History of Psychiatric Problem: No Integumentary History of Skin or Integumenta: No Blood Transfusions History of Blood Disorders: No Adverse Reaction to a Blood Tr: No (N/A) Family Medical History Significant Family History: Cancer, Diabetes, GI Disease Review of Systems-General Constitutional: No chills, No fever Respiratory: No cough, No short of breath Cardiovascular: No chest pain, No palpitations Gastrointestinal: abdominal pain (LLQ), constipation; No diarrhea, No nausea, No vomiting; other (Bloated) Genitourinary: No dysuria Physical Exam-General Problems Physical Exam Vital Signs Vital Signs - First Documented 11/02/22 23:35 Temp 35.8 Pulse 96 Resp 20 B/P (MAP) 138/92 (107) Pulse Ox 96 O2 Delivery Room Air Capillary Refill : Less Than 3 Seconds General Appearance: no apparent distress HEENT: PERRL/EOMI, pharynx normal Neck: supple, normal inspection Respiratory: chest non-tender, lungs clear, normal breath sounds Peripheral Pulses: 2+ Radial Pulses (R), 2+ Radial Pulses (L) Gastrointestinal: soft, distended, tenderness Extremities: non-tender, no pedal edema, no calf tenderness Neurologic/Psychiatric: alert, oriented x 3 Skin: normal color, warm/dry Lymphatic: no adenopathy Data Review Labs Laboratory Tests 11/02/22 23:39: White Blood Count 15.8H, Red Blood Count 4.75, Hemoglobin 15.6, Hematocrit 45, Mean Corpuscular Volume 94, Mean Corpuscular Hemoglobin 33, Mean Corpuscular Hemoglobin Concent 35, Red Cell Distribution Width 12.4, Platelet Count 249, Mean Platelet Volume 9.8, Immature Granulocyte % (Auto) 0, Neutrophils (%) (Auto) 63, Lymphocytes (%) (Auto) 25, Monocytes (%) (Auto) 9, Eosinophils (%) (Auto) 3, Basophils (%) (Auto) 1, Neutrophils # (Auto) 10.0H, Lymphocytes # (Auto) 3.9, Monocytes # (Auto) 1.3H, Eosinophils # (Auto) 0.4H, Basophils # (Aut o) 0.1, Immature Granulocyte # (Auto) 0.1, Neutrophils % (Manual) 65, Lymphocytes % (Manual) 23, Monocytes % (Manual) 7, Eosinophils % (Manual) 5, Blood Morphology Comment NORMAL, Erythrocyte Sedimentation Rate 9, Prothrombin Time 13.3, INR Comment 1.0, Activated Partial Thromboplast Time 34, Sodium Level 140, Potassium Level 3.9, Chloride Level 109H, Carbon Dioxide Level 19L, Anion Gap 12, Blood Urea Nitrogen 14, Creatinine 1.07, Estimat Glomerular Filtration Rate 86, BUN/Creatinine Ratio 13, Glucose Level 120H, Calcium Level 9.0, Corrected Calcium 8.9, Magnesium Level 1.9, Total Bilirubin 0.6, Aspartate Amino Transf (AST/SGOT) 25, Alanine Aminotransferase (ALT/SGPT) 39, Alkaline Phosphatase 59, C-Reactive Protein High Sensitivity 3.99H, Total Protein 7.5, Albumin 4.1, Amylase Level 39, Lipase 24 11/03/22 00:00: Lactic Acid Level 0.87 11/03/22 00:43: Urine Color YELLOW, Urine Clarity CLEAR, Urine pH 6.0, Urine Specific [place] 1.020, Urine Protein TRACEH, Urine Glucose (UA) NEGATIVE, Urine Ketones NEGATIVE, Urine Nitrite NEGATIVE, Urine Bilirubin NEGATIVE, Urine Urobilinogen 0.2, Urine Leukocyte Esterase NEGATIVE, Urine RBC (Auto) 1+H, Urine RBC 0-2, Urine WBC NONE, Urine Crystals PRESENTH, Urine Amorphous Sediment MOD DANAY URATESH, Urine Bacteria NEGATIVE, Urine Casts NONE, Urine Mucus NEGATIVE, Urine Culture Indicated NO 11/03/22 05:50: White Blood Count 12.2H, Red Blood Count 4.57, Hemoglobin 14.8, Hematocrit 43, Mean Corpuscular Volume 94, Mean Corpuscular Hemoglobin 32, Mean Corpuscular Hemoglobin Concent 35, Red Cell Distribution Width 12.6, Platelet Count 210, Mean Platelet Volume 10.2, Immature Granulocyte % (Auto) 1, Neutrophils (%) (Auto) 55, Lymphocytes (%) (Auto) 31, Monocytes (%) (Auto) 10, Eosinophils (%) (Auto) 3, Basophils (%) (Auto) 1, Neutrophils # (Auto) 6.6, Lymphocytes # (Auto) 3.8, Monocytes # (Auto) 1.3H, Eosinophils # (Auto) 0.4H, Basophils # (Auto) 0.1, Immature Granulocyte # (Auto) 0.1, Sodium Level 140, Potassium Level 4.2, Chloride Level 110H, Carbon Dioxide Level 18L, Anion Gap 12, Blood Urea Nitrogen 13, Creatinine 0.99, Estimat Glomerular Filtration Rate 94, BUN/Creatinine Ratio 13, Glucose Level 97, Calcium Level 8.5, Corrected Calcium 8.7, Total Bilirubin 0.8, Aspartate Amino Transf (AST/SGOT) 25, Alanine Aminotransferase (ALT/SGPT) 34, Alkaline Phosphatase 51, Total Protein 6.9, Albumin 3.7, Percent Immature Platelet Fraction 3.[address] ABDOMEN/PELVIS W EXAMINATION: CT abdomen and pelvis with intravenous contrast. TECHNIQUE: Multiple contiguous axial images were obtained through the abdomen and pelvis after the uneventful administration of intravenous contrast. All CT scans use one or more of the following dose optimizing techniques: automated exposure control, MA and/or KvP adjustment based on patient size and exam type or iterative reconstruction. HISTORY: Left lower quadrant pain. History of diverticulitis. COMPARISON: 05/30/2019. FINDINGS: The heart is unremarkable. The included lung bases are clear. There is hepatic steatosis. Cyst is seen in the right hepatic lobe measuring 1.2 cm. The portal vein is patent. A gallstone is seen within the gallbladder lumen without CT evidence of acute cholecystitis. The spleen, pancreas, adrenal glands, and kidneys have a normal appearance. There is no pathologically enlarged mesenteric or retroperitoneal adenopathy. The bowel loops are nondilated. The appendix is visualized in the right lower quadrant and has a normal appearance. Diverticuli are seen in the sigmoid colon with pericolonic inflammatory changes adjacent to the proximal portion of the sigmoid colon. There is no free fluid or free air. No acute osseous abnormalities. Ureters and bladder are grossly normal. There is no free air, loculated collection, or adenopathy in the pelvis. IMPRESSION: 1. Findings consistent with acute uncomplicated diverticulitis involving the proximal sigmoid colon. 2. Hepatic steatosis. 3. Cholelithiasis without CT evidence of acute cholecystitis. Agree with overnight report. CHEST 1 VIEW, AP/PA ONLY INDICATION: Fever and abdominal pain. COMPARISON: 05/01/2022. FINDINGS: The lungs appear clear without focal airspace opacities or consolidation. There are no findings of an effusion. There is no evidence of a pneumothorax. Heart size and mediastinal contours appear appropriate. Pulmonary vascularity appears within normal limits. There is no acute or suspicious osseous abnormality demonstrated. IMPRESSION: No radiographic evidence of an acute cardiopulmonary process. Assessment/Plan Assessment/Plan Assessment/Plan Sepsis Acute Uncomplicated Diverticulitis LLQ Pain Advance to Clears Ambulate as Tolerated Continue Abx IVF Pain Management Screening Colonoscopy 6-8 weeks after resolution CORIE HERNANDEZ DO 11/03/22 1141: History of Present Illness History of Present Illness History of Present Illness Consult requested by Dr. Martinez for diverticulitis. Patient is a 47 year old male who since last Friday began having pain in the LLQ. At worse 8-06/01 pain medication has made it about a 3-4. Pain is a stuck sharp pain. Pain meds help, touching the area makes worse. Reports fever yesterday. Had a bowel movement just before I came in the room. Denies n/v fever sweats chills shortness of breath or chest pain at this time. CT demonstratin. Findings consistent with acute uncomplicated diverticulitis involving the proximal sigmoid colon. 2. Hepatic steatosis. 3. Cholelithiasis without CT evidence of acute cholecystitis. Allergies and Home Medications Allergies Coded Allergies: No Known Drug Allergies (Unverified , 06/15/19) Patient Home Medication List Home Medication List Reviewed: Yes L.acidoph & Paracasei,B.lactis (Probiotic) 1 Each Capsule, 1 EACH PO DAILY, (Reported) Entered as Reported by: SOLA GUERRA on 06/14/21 1043 Oxycodone HCl/Acetaminophen (Percocet 5-325 mg Tablet) 1 Each Tablet, 1 TAB PO Q4H PRN for PAIN-MODERATE (5-7) Prescribed by: COREY ERNANDEZ MD on 06/15/21 1109 Past Rvetnsp-Ybflce-Jvvlmi Hx Reviewed Nursing Assessment Reviewed/Agree w Nursing PMH: Yes Family Medical History Significant Family History: No Pertinent Family Hx Review of Systems-General Constitutional: No chills, No fever Respiratory: No cough, No short of breath Cardiovascular: No chest pain, No palpitations Gastrointestinal: abdominal pain (LLQ), constipation; No diarrhea, No nausea, No vomiting; other (Bloated) Genitourinary: No discharge, No dysuria Musculoskeletal: No back pain, No joint pain Skin: No change in color, No change in hair/nails Psychiatric/Neurological: Denies Anxiety, Denies Depressed, Denies Emotional Problems All Other Systems Reviewed Negative Unless Noted: Yes (Negative excepted noted.) Physical Exam-General Problems Physical Exam General Appearance: WD/WN, no apparent distress HEENT: PERRL/EOMI, normal ENT inspection Neck: non-tender, supple Respiratory: chest non-tender, no respiratory distress, no accessory muscle use Cardiovascular: regular rate, rhythm, no JVD Gastrointestinal: soft; No distended; tenderness (llq) Rectal: deferred Back: normal inspection, no CVA tenderness Extremities: non-tender, no pedal edema Neurologic/Psychiatric: alert, oriented x 3 Skin: normal color, warm/dry Lymphatic: no adenopathy Assessment/Plan Assessment/Plan Assessment/Plan Sepsis Acute Uncomplicated Diverticulitis LLQ Pain Advance to Sips of clears Ambulate as Tolerated Continue Abx IVF Pain Management Screening Colonoscopy 6-8 weeks after resolution Supervisory-Addendum Brief Verification & Attestation Participated in pt care: history, MDM, physical Personally performed: exam, history, MDM, supervision of care Care discussed with: Medical Student Procedures: n/a Results interpretation: Verified all documentation Verification and Attestation of Medical Student E/M Service A medical student performed and documented this service in my presence. I reviewed and verified all information documented by the medical student and made modifications to such information, when appropriate. I personally performed the physical exam and medical decision making. Corie Hernandez, Nov 03, 2022,11:42 KHOI HAYES Nov 03, 2022 08:31 CORIE HERNANDEZ DO Nov 03, 2022 11:41
[2022-11-03 11:44] VITALS: BP 131/75
[2022-11-03 16:00] VITALS: BP 140/80
[2022-11-03 19:20] VITALS: BP 140/83
[2022-11-04 00:21] VITALS: BP 130/73
[2022-11-04] MEDS: LACTATED RINGERS 1,000 ML IV SCH ×3 (04:01→17:17)
[2022-11-04] MEDS: metroNIDAZOLE 500 MG/100 ML IVPB (PRE-MIX) IV SCH ×2 (04:01→17:17)
[2022-11-04 04:03] VITALS: BP 107/56
[2022-11-04 05:35] LABS: BASOPHILS # (AUTO) 0.1 10^3/uL (0.0-0.1); BASOPHILS % (AUTO) 1 % (0-10); EOSINOPHILS # (AUTO) 0.3 10^3/uL (0.0-0.3); EOSINOPHILS % (AUTO) 2 % (0-10); HEMATOCRIT 40 % (40-54); HEMOGLOBIN 13.8 g/dL (13.3-17.7); LYMPHOCYTES # (AUTO) 2.6 10^3/uL (1.0-4.0); LYMPHOCYTES % (AUTO) 22 % (12-44); MEAN CORPUSCULAR HEMOGLOBIN 32 pg (25-34); MEAN CORPUSCULAR HGB CONC 35 g/dL (32-36); MEAN CORPUSCULAR VOLUME 93 fL (80-99); MEAN PLATELET VOLUME 9.6 fL (9.0-12.2); MONOCYTES # (AUTO) 1.2 10^3/uL (0.0-1.0); MONOCYTES % (AUTO) 10 % (0-12); NEUTROPHILS # (AUTO) 7.5 10^3/uL (1.8-7.8); NEUTROPHILS % (AUTO) 64 % (42-75); PLATELET COUNT 212 10^3/uL (130-400); WHITE BLOOD COUNT 11.7 10^3/uL (4.3-11.0)
[2022-11-04] MEDS: PIPERACILLIN SODIUM/TAZOBACTAM 4.5 GM in NS (IVPB) 100 ML IV SCH ×3 (05:43→20:56)
[2022-11-04 05:55] LABS: ALBUMIN 3.7 GM/DL (3.2-4.5)
[2022-11-04 05:56] LABS: POTASSIUM 3.7 MMOL/L (3.6-5.0)
[2022-11-04 05:57] LABS: CALCIUM 8.5 MG/DL (8.5-10.1)
[2022-11-04 05:58] LABS: TOTAL PROTEIN 6.6 GM/DL (6.4-8.2)
[2022-11-04 06:00] LABS: BILIRUBIN,TOTAL 1.5 MG/DL (0.1-1.0)
[2022-11-04 06:02] LABS: CREATININE SERUM 1.07 MG/DL (0.60-1.30)
--- NOTE | 2022-11-04 07:40 | Progress Note - Surgery ---
KAYLA RAMIREZ 11/04/22 0740: Subjective Date Seen by a Provider: Nov 04, 2022 Time Seen by a Provider: 07:35 Subjective/Events-last exam Patient is laying bed with minimal discomfort this morning. He was able to get some rest last night. He states that his abdominal pain is a 4/10 this morning which is improved from yesterday and still localized to his LLQ. He has his last bowel movement at 01:00 which was diarrhea. Denying any hematochezia or melena. He is tolerating his liquid diet well if he "sips", but complains of pain if he drinks to fast. Is able to ambulate on his own. He denies any nausea, vomiting, SOB, chest pain, or headache. No other complaints at this time. Review of Systems General: No Chills, No Night Sweats HEENT: No Head Aches, No Sore Throat Pulmonary: No Dyspnea, No Cough Cardiovascular: No: Chest Pain, Palpitations Gastrointestinal: No: Nausea, Vomiting Genitourinary: No Dysuria, No Hematuria Musculoskeletal: No: neck pain, leg pain Neurological: No: Weakness, Numbness Focused Exam Lactate Level 11/03/22 00:00: Lactic Acid Level 0.87 Time of Focused Exam: 01:00 Objective Exam Vital Signs Date Time Temp Pulse Resp B/P (MAP) Pulse Ox O2 Delivery O2 Flow Rate FiO2 11/04/22 04:03 36.1 84 18 107/56 (73) 92 Room Air 11/04/22 00:21 37.1 90 18 130/73 (92) 91 Room Air 11/03/22 19:37 Room Air 11/03/22 19:20 37.3 90 20 140/83 (102) 96 Room Air 11/03/22 16:00 36.3 92 20 140/80 (100) 94 Room Air 11/03/22 11:44 36.7 70 18 131/75 (93) 96 Room Air 11/03/22 08:00 Room Air 11/03/22 07:50 36.8 85 18 128/75 (92) 94 Room Air I & O 11/04/22 07:00 Intake Total 1200 ml Balance 1200 ml Capillary Refill : Less Than 3 Seconds General Appearance: No Apparent Distress, Obese HEENT: PERRL/EOMI, Moist Mucous Membranes; No Scleral Icterus (L), No Scleral Icterus (R) Neck: Non Tender, Supple Respiratory: Chest Non Tender, Lungs Clear, No Accessory Muscle Use, No Respiratory Distress Cardiovascular: Regular Rate, Rhythm, No Edema, No Murmur Peripheral Pulses: 2+ Dorsalis Pedis (R), 2+ Left Dors-Pedis (L), 2+ Radial Pulses (R), 2+ Radial Pulses (L) Gastrointestinal: soft; No distended, No guarding, No rebound; tenderness (LLQ TENDERNESS 12/30 today improved from yesterday); No hernia, No mass Extremity: Non Tender, No Calf Tenderness, No Pedal Edema Neurologic/Psychiatric: Alert, Oriented x3 Skin: Normal Color, Warm/Dry Results Lab Laboratory Tests 11/04/22 05:20: White Blood Count 11.7H, Red Blood Count 4.30, Hemoglobin 13.8, Hematocrit 40, Mean Corpuscular Volume 93, Mean Corpuscular Hemoglobin 32, Mean Corpuscular Hemoglobin Concent 35, Red Cell Distribution Width 12.3, Platelet Count 212, Mean Platelet Volume 9.6, Immature Granulocyte % (Auto) 1, Neutrophils (%) (Auto) 64, Lymphocytes (%) (Auto) 22, Monocytes (%) (Auto) 10, Eosinophils (%) (Auto) 2, Basophils (%) (Auto) 1, Neutrophils # (Auto) 7.5, Lymphocytes # (Auto) 2.6, Monocytes # (Auto) 1.2H, Eosinophils # (Auto) 0.3, Basophils # (Auto) 0.1, Immature Granulocyte # (Auto) 0.1, Sodium Level 140, Potassium Level 3.7, Chloride Level 109H, Carbon Dioxide Level 20L, Anion Gap 11, Blood Urea Nitrogen 8, Creatinine 1.07, Estimat Glomerular Filtration Rate 86, BUN/Creatinine Ratio 7, Glucose Level 102, Calcium Level 8.5, Corrected Calcium 8.7, Total Bilirubin 1.5H, Aspartate Amino Transf (AST/SGOT) 14, Alanine Aminotransferase (ALT/SGPT) 26, Alkaline Phosphatase 46, Total Protein 6.6, Albumin 3.7 Microbiology 11/03/22 Blood Culture - Preliminary, Resulted No growth Assessment/Plan Assessment/Plan Assessment/Plan Acute Uncomplicated Diverticulitis LLQ Pain-Improving compared to yesterday Diarrhea-Active Continue Abx and IV fluids Continue pain management Anti-emetics as needed Continue clear liquid diet as tolerated Encourage ambulation Screening Colonoscopy to be scheduled outpatient DEDRICK SCOTT DO 11/04/22 1134: Subjective Time Seen by a Provider: 10:43 Subjective/Events-last exam Pt seen and examined, states he is doing a litle better. Has had BM -liquid, but no melena or hematochezia. He states when he gets "flares" he can usually moderate what he eats and it goes away. Review of Systems General: No Chills, No Night Sweats Pulmonary: No Dyspnea, No Cough Cardiovascular: No: Chest Pain, Palpitations Gastrointestinal: Abdominal Pain; No: Nausea, Vomiting Objective Exam General Appearance: No Apparent Distress, Obese HEENT: PERRL/EOMI, Moist Mucous Membranes Neck: Non Tender, Supple Respiratory: Chest Non Tender, Lungs Clear, Normal Breath Sounds, No Accessory Muscle Use, No Respiratory Distress Cardiovascular: Regular Rate, Rhythm, No Murmur Gastrointestinal: soft; No distended, No guarding, No rebound; tenderness (LLQ TENDERNESS 12/30 today improved from yesterday) Extremity: Non Tender, No Calf Tenderness, No Pedal Edema Skin: Normal Color, Warm/Dry Assessment/Plan Assessment/Plan Assessment/Plan Acute Uncomplicated Diverticulitis LLQ Pain-Improving compared to yesterday -but still has some Diarrhea-Active Continue Abx and IV fluids, Continue pain management, Anti-emetics as needed Continue clear liquid diet - probably sips only while he is having pain. Encourage ambulation Pt will need Colonoscopy as an outpatient, he probably should have had one roughly two years ago (after waiting for C. Diff to clear). However, Covid-19 hit and he has not had any problems. My Colonoscopy attempt in 2019 was unsu ccesful because of the C. Diff with severe colitis and possibly stricture. If pain is better tomorrow and better when he eats, would increase to soft and possibly D/C home tomorrow. Supervisory-Addendum Brief Verification & Attestation Participated in pt care: history, MDM, physical Personally performed: exam, history, MDM, supervision of care Care discussed with: Medical Student Procedures: n/a Verification and Attestation of Medical Student E/M Service A medical student performed and documented this service. I then reviewed and verified all information documented by the medical student and made modifications to such information, when appropriate. I personally performed a physical exam, medical decision making and then discussed any differences between the notes and made revisions as necessary to create one note. Dedrick Scott , 11/04/22 , 11:35 KAYLA RAMIREZ Nov 04, 2022 07:40 DEDRICK SCOTT DO Nov 04, 2022 11:34
[2022-11-04] MEDS: PANTOPRAZOLE 40 MG (PROTONIX) VIAL IV SCH (08:12)
[2022-11-04] MEDS: ENOXAPARIN 40 MG/0.4 ML (LOVENOX) SYR SC SCH ×2 (08:13→20:56)
[2022-11-04 08:15] VITALS: BP 148/91
[2022-11-04] MEDS: DOCUSATE SODIUM 100 MG (COLACE) CAP PO SCH ×2 (09:30→20:24)
[2022-11-04] MEDS: SENNOSIDES 8.6 MG (SENOKOT) TAB PO SCH ×2 (09:30→20:24)
--- NOTE | 2022-11-04 11:13 | Progress Note ---
CASSANDRA MCCARTHY 11/04/22 1113: Subjective Date Seen by a Provider: Nov 04, 2022 Time Seen by a Provider: 10:15 Subjective/Events-last exam 47yo M admitted with acute diverticulitis and sepsis. Day 2 of admission. Patient reports he is feeling much better. He says he is no longer feeling nauseous and does not feel as bloated compared to yesterday. Reports that he continues to have LLQ pain that does not radiate and is worse with bending over. Rates the pain a 3/10. Patient has had 3 bowel movements that have all been diarrhea. Patient is on a clear liquid diet. Denies fevers, chills, headaches, chest pain, shortness of breath, nausea, and vomiting. Review of Systems General: No Chills, No Fatigue; Appetite HEENT: No Head Aches, No Visual Changes, No Sinus Congestion, No Sore Throat Pulmonary: No Dyspnea, No Cough Cardiovascular: No: Chest Pain, Palpitations, Edema, Lt Headedness Gastrointestinal: Abdominal Pain (LLQ), Diarrhea, Constipation; No: Nausea, Vomiting, Melena Genitourinary: No Dysuria, No Frequency Neurological: No: Weakness, Incoordination Focused Exam Lactate Level 11/03/22 00:00: Lactic Acid Level 0.87 Time of Focused Exam: 01:00 Objective Exam Last Set of Vital Signs Vital Signs Date Time Temp Pulse Resp B/P (MAP) Pulse Ox O2 Delivery O2 Flow Rate FiO2 11/04/22 08:15 36.5 88 18 148/91 (110) 94 Room Air Capillary Refill : Less Than 3 Seconds I&O Intake and Output 11/04/22 00:00 Intake Total 1000 ml Balance 1000 ml Intake Oral 1000 ml # Voids 5 # Bowel Movements 2 Daily Weight Change No General: Alert, Oriented X3, Cooperative, No Acute Distress HEENT: Atraumatic, Mucous Memb Moist/[place] Neck: Supple Lungs: Clear to Auscultation, Normal Air Movement Heart: Regular Rate, No Murmurs Abdomen: Normal Bowel Sounds, Other (Distended, tender in LLQ) Extremities: No Edema, Normal Pulses (Right 2+ radial pulse) Skin: No Significant Lesion Neuro: Normal Gait, Normal Speech, Normal Tone Psych/Mental Status: Mental Status NL, Mood NL Results Lab Laboratory Tests 11/04/22 05:20: White Blood Count 11.7H, Red Blood Count 4.30, Hemoglobin 13.8, Hematocrit 40, Mean Corpuscular Volume 93, Mean Corpuscular Hemoglobin 32, Mean Corpuscular Hemoglobin Concent 35, Red Cell Distribution Width 12.3, Platelet Count 212, Tana n Platelet Volume 9.6, Immature Granulocyte % (Auto) 1, Neutrophils (%) (Auto) 64, Lymphocytes (%) (Auto) 22, Monocytes (%) (Auto) 10, Eosinophils (%) (Auto) 2, Basophils (%) (Auto) 1, Neutrophils # (Auto) 7.5, Lymphocytes # (Auto) 2.6, Monocytes # (Auto) 1.2H, Eosinophils # (Auto) 0.3, Basophils # (Auto) 0.1, Immature Granulocyte # (Auto) 0.1, Sodium Level 140, Potassium Level 3.7, Chloride Level 109H, Carbon Dioxide Level 20L, Anion Gap 11, Blood Urea Nitrogen 8, Creatinine 1.07, Estimat Glomerular Filtration Rate 86, BUN/Creatinine Ratio 7, Glucose Level 102, Calcium Level 8.5, Corrected Calcium 8.7, Total Bilirubin 1.5H, Aspartate Amino Transf (AST/SGOT) 14, Alanine Aminotransferase (ALT/SGPT) 26, Alkaline Phosphatase 46, Total Protein 6.6, Albumin 3.7 Microbiology 11/03/22 Blood Culture - Preliminary, Resulted No growth Assessment/Plan Assessment/Plan Assess & Plan/Chief Complaint Acute diverticulitis - surgery consulted - day 2 of IV metronidazole and IV zosyn - will advance diet to soft foods and if patient tolerates this, may be able to be discharged tomorrow - continue with IV fluids - pain is being managed with oxycodone 5mg Q4hrs PRN - surgery is planning to do a screening colonoscopy outpatient Sepsis - has resolved Hypertension - patient's blood pressure has been well controlled QUIN GOLD MD 11/04/22 1214: Objective Exam General: Alert, Oriented X3, No Acute Distress Lungs: Clear to Auscultation, Normal Air Movement Heart: Regular Rate, No Murmurs Abdomen: Normal Bowel Sounds, Soft, Other (LLQ tenderness to palpation, no rebound or guarding) Extremities: No Edema, No Tenderness/Swelling Neuro: Normal Speech Supervisory-Addendum Brief Verification & Attestation Participated in pt care: history, physical Personally performed: exam, history Care discussed with: Medical Student Procedures: n/a Verification and Attestation of Medical Student E/M Service A medical student performed and documented this service in my presence. I reviewed and verified all information documented by the medical student and made modifications to such information, when appropriate. I personally performed the physical exam and medical decision making. Quin Gold, Nov 04, 2022,12:14 CASSANDRA MCCARTHY Nov 04, 2022 11:13 QUIN GOLD MD Nov 04, 2022 12:14
[2022-11-04 11:53] VITALS: BP 148/89
[2022-11-04] MEDS ORDERED: METO50TA7 PO (12:56)
--- NOTE | 2022-11-04 14:13 | Occupational Therapy Eval ---
OT Evaluation-General/PLF Medical Diagnosis Admission Date Nov 03, 2022 at 02:10 Medical Diagnosis: acute diverticulitis Onset Date: Nov 03, 2022 Therapy Diagnosis Therapy Diagnosis: abdominal pain. Height/Weight Height (Feet): 5 Height (Inches): 8.00 Weight (Pounds): 235 Weight (Ounces): 4.0 Precautions Precautions/Isolations: Standard Precautions Weight Bear Status Weight Bearing Restriction: Weight Bearing/Tolerated Referral Referral Reason: Evaluation/Treatment Medical History Pertinent Medical History: Diverticulitis Current History admit via ER w/ acute abdominal pain, Reviewed History: Yes Social History Home: Single Level Current Living Status: Spouse Entry Into Home: Stairs With Railing ADL-Prior Level of Function SCALE: Activities may be completed with or without assistive devices. 5-Fiudhnnyxf-mnxaxsg completes the activity by him/herself with no assistance from a helper. 5-Set-up or Clean-up Assistance-helper sets up or cleans up; patient completes activity. [place] assists only prior to or following the activity. 4-Supervision or Touching Assistance-helper provides verbal cues and/or touching/steadying and/or contact guard assistance as patient completes activity. Assistance may be provided throughout the activity or intermittently. 3-Partial/Moderate Assistance-helper does LESS THAN HALF the effort. [place] lifts, holds or supports trunk or limbs, but provides less than half the effort. 2-Substantial/Maximal Assistance-helper does MORE THAN HALF the effort. [place] lifts or holds trunk or limbs and provides more than half the effort. 8-Qmbmpresm-nfvaza does ALL the effort. Patient does none of the effort to comp lete the activity. Or, the assistance of 2 or more helpers is required for the patient to complete the activity. If activity was not attempted, code reason: 7-Patient Refused. 9-Not Applicable-not attempted and the patient did not perform the activity before the current illness, exacerbation or injury. 10-Not Attempted due to Environmental Limitations-(lack of equipment, weather restraints, etc.). 88-Not Attempted due to Medical Conditions or Safety Concerns. ADL PLOF Comments Wearing own clothing, performed toileting transfers and Sock/shoe donning Functional Cognition: Independent Occupation: [employer] [address] Self: Yes OT Current Status Subjective Sitting up in bed legs crossed. Mental Status/Objective Patient Orientation: Person, Place, Time, Situation Attachments: IV (unplugs own IV pole to ambulate) Current Upper Extremity ROM BUE ROM/strength WNLs ADL-Treatment Eating (QC): 6 Oral Hygiene (QC): 6 Shower/Bathe Self (QC): 6 (simulated w/ walk in shower) Upper Body Dressing (QC): 6 (t shirt) Lower Body Dressing (QC): 6 (elastic shorts) On/Off Footwear (QC): 6 Toileting Hygiene (QC): 6 Education OT Patient Education: Energy conservation, Progress toward Goal/Update tx plan, Purpose of tx/functional activities, Reviewed precautions, Rehab process, Safety issues, Transfer techniques Teaching Recipient: Patient Teaching Methods: Demonstration, Discussion Response to Teaching: Verbalize Understanding, Return Demonstration OT Long-Term Goals Rn Recovery Goals 1=Demonstrate adherence to instructed precautions during ADL tasks. 2=Patient will verbalize/demonstrate understanding of assistive devices/modifications for ADL. 3=Patient will improve strength/tolerance for activity to enable patient to perform ADL's. OT Education/Plan Problem List/Assessment Assessment: No Skilled OT Needs ID'd Discharge Recommendations Plan/Recommendations: Discontinue OT Treatment Plan/Plan of Care Treatment,Training & Education: Yes Patient would benefit from OT for education, treatment and training to promote independence in ADL's, mobility, safety and/or upper extremity function for ADL's. Plan of Care: OTHER Treatment Duration: Nov 04, 2022 Frequency: 1 time per week (one time visit) Agreement: Yes Rehab Potential: Good Returned to bed crossed legged, IV plugged in All needs met Time Start Time: 11:00 Stop Time: 11:26 DATE: Nov 04, 2022 Total Time Billed (hr/min): 16 Billed Treatment Time 1 EVL 1 16 minutes AARON RAMOS OT Nov 04, 2022 14:13
[2022-11-04 16:05] VITALS: BP_SYST 132; BP_SYST 155; BP_DIAS 70; BP_DIAS 85
[2022-11-04 19:26] VITALS: BP 156/94
[2022-11-05 00:24] VITALS: BP 133/90
[2022-11-05] MEDS: metroNIDAZOLE 500 MG/100 ML IVPB (PRE-MIX) IV SCH (04:04)
[2022-11-05] MEDS: PIPERACILLIN SODIUM/TAZOBACTAM 4.5 GM in NS (IVPB) 100 ML IV SCH (05:10)
[2022-11-05 05:27] LABS: BASOPHILS # (AUTO) 0.1 10^3/uL (0.0-0.1); BASOPHILS % (AUTO) 1 % (0-10); EOSINOPHILS # (AUTO) 0.5 10^3/uL (0.0-0.3); EOSINOPHILS % (AUTO) 6 % (0-10); HEMATOCRIT 39 % (40-54); HEMOGLOBIN 13.5 g/dL (13.3-17.7); LYMPHOCYTES # (AUTO) 2.7 10^3/uL (1.0-4.0); LYMPHOCYTES % (AUTO) 33 % (12-44); MEAN CORPUSCULAR HEMOGLOBIN 32 pg (25-34); MEAN CORPUSCULAR HGB CONC 35 g/dL (32-36); MEAN CORPUSCULAR VOLUME 93 fL (80-99); MEAN PLATELET VOLUME 9.6 fL (9.0-12.2); MONOCYTES # (AUTO) 0.9 10^3/uL (0.0-1.0); MONOCYTES % (AUTO) 11 % (0-12); NEUTROPHILS % (AUTO) 50 % (42-75); PLATELET COUNT 200 10^3/uL (130-400); WHITE BLOOD COUNT 8.2 10^3/uL (4.3-11.0)
[2022-11-05 05:40] LABS: ALBUMIN 3.6 GM/DL (3.2-4.5); POTASSIUM 3.7 MMOL/L (3.6-5.0)
[2022-11-05 05:42] LABS: CALCIUM 8.5 MG/DL (8.5-10.1)
[2022-11-05 05:43] LABS: TOTAL PROTEIN 6.4 GM/DL (6.4-8.2)
[2022-11-05 05:45] LABS: BILIRUBIN,TOTAL 0.9 MG/DL (0.1-1.0)
[2022-11-05 05:46] LABS: CREATININE SERUM 1.02 MG/DL (0.60-1.30)
[2022-11-05] MEDS: ENOXAPARIN 40 MG/0.4 ML (LOVENOX) SYR SC SCH (07:43)
[2022-11-05] MEDS: PANTOPRAZOLE 40 MG (PROTONIX) VIAL IV SCH (07:43)
[2022-11-05] MEDS: DOCUSATE SODIUM 100 MG (COLACE) CAP PO SCH (07:43)
[2022-11-05] MEDS: SENNOSIDES 8.6 MG (SENOKOT) TAB PO SCH (07:44)
--- NOTE | 2022-11-05 07:45 | Progress Note - Surgery ---
KAYLA RAMIREZ 11/05/22 0745: Subjective Date Seen by a Provider: Nov 05, 2022 Time Seen by a Provider: 07:39 Subjective/Events-last exam Patient is sleeping in bed comfortably in bed this morning. He reports improvement in abdominal pain from yesterday, rating it a 3/10 this morning. The pain is still localized to LLQ. His last bowel movement late yesterday evening which was diarrhea still, without any hematochezia or melena. He is tolerating his liquid diet well, feels willing to try some soft food to see if he tolerates it. He is ambulating well on his own and moving about. Denies any nausea, vomiting, chest pain, dysuria, SOB, or headache. No other complaints at this time. Review of Systems General: No Chills, No Night Sweats HEENT: No Visual Changes, No Sore Throat Pulmonary: No Dyspnea, No Cough Cardiovascular: No: Chest Pain, Edema Gastrointestinal: Abdominal Pain, Diarrhea; No: Nausea, Vomiting, Melena, Hematochezia Genitourinary: No Dysuria, No Hematuria Musculoskeletal: No: neck pain, back pain Neurological: No: Weakness, Numbness Focused Exam Lactate Level 11/03/22 00:00: Lactic Acid Level 0.87 Time of Focused Exam: 01:00 Objective Exam Vital Signs Date Time Temp Pulse Resp B/P (MAP) Pulse Ox O2 Delivery O2 Flow Rate FiO2 11/05/22 00:24 36.5 80 18 133/90 (104) 93 Room Air 11/04/22 20:36 Room Air 11/04/22 19:26 36.7 85 20 156/94 (114) 94 Room Air 11/04/22 16:05 36.8 78 18 132/85 (101) 94 Room Air 11/04/22 11:53 36.6 76 18 148/89 (108) 95 Room Air 11/04/22 08:15 36.5 88 18 148/91 (110) 94 Room Air 11/04/22 08:00 94 Room Air I & O 11/05/22 07:00 Intake Total 3820 ml Balance 3820 ml Capillary Refill : Less Than 3 Seconds General Appearance: No Apparent Distress, Obese HEENT: PERRL/EOMI, Moist Mucous Membranes; No Scleral Icterus (L), No Scleral Icterus (R) Neck: Non Tender, Supple Respiratory: Chest Non Tender, Lungs Clear, Normal Breath Sounds, No Accessory Muscle Use, No Respiratory Distress Cardiovascular: Regular Rate, Rhythm, No Murmur Peripheral Pulses: 2+ Dorsalis Pedis (R), 2+ Left Dors-Pedis (L), 2+ Radial Pulses (R), 2+ Radial Pulses (L) Gastrointestinal: soft; No distended, No guarding, No rebound; tenderness (LLQ tender to palpation 11/29 today improved from yesterday) Extremity: Non Tender, No Calf Tenderness, No Pedal Edema Neurologic/Psychiatric: Alert, Oriented x3 Skin: Normal Color, Warm/Dry Results Lab Laboratory Tests 11/05/22 05:20: White Blood Count 8.2, Red Blood Count 4.18L, Hemoglobin 13.5, Hematocrit 39L, Mean Corpuscular Volume 93, Mean Corpuscular Hemoglobin 32, Mean Corpuscular Hem oglobin Concent 35, Red Cell Distribution Width 12.1, Platelet Count 200, Mean Platelet Volume 9.6, Immature Granulocyte % (Auto) 0, Neutrophils (%) (Auto) 50, Lymphocytes (%) (Auto) 33, Monocytes (%) (Auto) 11, Eosinophils (%) (Auto) 6, Basophils (%) (Auto) 1, Neutrophils # (Auto) 4.0, Lymphocytes # (Auto) 2.7, Monocytes # (Auto) 0.9, Eosinophils # (Auto) 0.5H, Basophils # (Auto) 0.1, Immature Granulocyte # (Auto) 0.0, Sodium Level 141, Potassium Level 3.7, Chloride Level 110H, Carbon Dioxide Level 21, Anion Gap 10, Blood Urea Nitrogen 6L, Creatinine 1.02, Estimat Glomerular Filtration Rate 91, BUN/Creatinine Ratio 6, Glucose Level 100, Calcium Level 8.5, Corrected Calcium 8.8, Total Bilirubin 0.9, Aspartate Amino Transf (AST/SGOT) 16, Alanine Aminotransferase (ALT/SGPT) 23, Alkaline Phosphatase 40, Total Protein 6.4, Albumin 3.6 Microbiology 11/03/22 Urine Culture - Final, Complete NO GROWTH 11/03/22 Blood Culture - Preliminary, Resulted No growth Assessment/Plan Assessment/Plan Assessment/Plan Acute Uncomplicated Diverticulitis LLQ Pain-Improving compared to yesterday -but still has some Diarrhea-Active Continue Abx and IV fluids Continue pain management Anti-emetics as needed Move to soft diet as liquid diet is tolerated well and pain is improving Encourage ambulation Schedule outpatient colonoscopy in 6-8 weeks DEDRICK MARROQUIN DO 11/05/22 1409: Subjective Time Seen by a Provider: 11:12 Subjective/Events-last exam Pt seen and examined, denies pain and states he had no trouble with liquid diet for breakfast. Review of Systems General: No Chills, No Night Sweats Pulmonary: No Dyspnea, No Cough Gastrointestinal: Diarrhea; No: Nausea, Vomiting, Abdominal Pain Objective Exam General Appearance: No Apparent Distress, Obese HEENT: Moist Mucous Membranes Respiratory: Chest Non Tender, Lungs Clear, Normal Breath Sounds, No Accessory Muscle Use, No Respiratory Distress Cardiovascular: Regular Rate, Rhythm, No Murmur Gastrointestinal: No distended, No guarding, No rebound; tenderness (LLQ tender to palpation /10 today improved from yesterday) Assessment/Plan Assessment/Plan Assessment/Plan Acute Uncomplicated Diverticulitis Diarrhea-Active Continue Abx (would switch to oral to send home) and IV fluids, Continue pain management, Anti-emetics as needed Move to soft diet as liquid diet is tolerated well and pain is improving, Encourage ambulation, Schedule outpatient colonoscopy in 6-8 weeks OK to send home from surgery standpoint if he tolerates soft diet for lunch. Spoke with Dr. Gold regarding his care. Supervisory-Addendum Brief Verification & Attestation Participated in pt care: history, MDM, physical Personally performed: exam, history, MDM, supervision of care Care discussed with: Medical Student Procedures: n/a Verification and Attestation of Medical Student E/M Service A medical student performed and documented this service. I then reviewed and verified all information documented by the medical student and made modifications to such information, when appropriate. I personally performed a physical exam, medical decision making and then discussed any differences between the notes and made revisions as necessary to create one note. Dedrick Marroquin , 11/05/22 , 14:09 KAYLA RAMIREZ Nov 05, 2022 07:45 DEDRICK MARROQUIN DO Nov 05, 2022 14:09
[2022-11-05 08:10] VITALS: BP 157/81
--- NOTE | 2022-11-05 15:19 | Discharge Inst-Surgical ---
Discharge Inst-Surgical Depart Medication/Instructions New, Converted or Re-Newed RX: Other (continue ABX) Patient Instructions Follow up Appt: Make appointment for 1 week. [phone] Symptoms to Report: Appetite Changes, Extremity Discoloration, Numbness/Tingling, Swelling Incre ased, Bleeding Excessive, Eyesight Changes, Pain Increased, Urine Color Change, Constipation(Persistent), Fever over 101 degree F, Pain/Pressure in chest, Urinating Difficulty, Cough Up/Vomit Blood, Heart Beat Irreg/Pounding, Pain/Pressure in jaw, Cramps in feet or legs, Lightheadedness, Pain/Pressure in shoulder, Diarrhea(Persistent), Memory Changes Suddenly, Questions/Concerns, W eight gain consecutive days, Dizziness/Fainting, Nausea/Vomiting, Shortness of Breath, Weight gain over 2 pounds If questions or concerns contact your physician Or seek help at emergency department. Activity Activity as Tolerated: Yes Diet Discharge Diet: No Restrictions (increase fluids and increase fiber) Diet After 24 Hours: Clear Liquid if Nauseous If Any Problems/Questions/Issu: Contact Your Physician, Go to Emergency Room Skin/Wound Care Infection Signs and Symptoms: Increased Swelling, Temperature Above 101 F Bathing Instructions: JOHN Crawford DO Nov 05, 2022 15:19
--- NOTE | 2022-11-05 15:57 | Discharge Summary ---
Diagnosis/Chief Complaint Date of Admission Nov 03, 2022 at 02:10 Date of Discharge Discharge Date: Nov 05, 2022 Discharge Time: 15:52 Admission Diagnosis Admission Diagnosis Acute diverticulitis with sepsis Discharge Diagnosis Acute diverticulitis with sepsis Discharge Summary Discharge Physical Examination Allergies: Coded Allergies: No Known Drug Allergies (Unverified , 06/15/19) Vitals & I&Os Vital Signs Date Time Temp Pulse Resp B/P (MAP) Pulse Ox O2 Delivery O2 Flow Rate FiO2 11/05/22 08:10 36.4 74 18 157/81 (106) 92 Room Air General Appearance: Alert, Oriented X3, Cooperative HEENT: Mucous Memb Moist/[place] Respiratory: Clear to Auscultation, Normal Air Movement Cardiovascular: Regular Rate, No Murmurs Abdominal: Soft, No Tenderness Extremities: No Edema, Normal Pulses (Left 2+ radial pulse) Skin: No Significant Lesion Neuro: Normal Speech Psych/Mental Status: Mental Status NL, Mood NL Hospital Course Was the Problem List Reviewed?: Yes Patient is a 47yo M with a PMH of diverticulosis and HTN that presented to the ER on 11/02/22 with LLQ abdominal pain. Patient had progressively worsening LLQ pain for 5 days along with constipation. WBC was elevated and CT showed acute di verticulitis. He was admitted for acute diverticulitis with sepsis. Patient was placed on bowel rest with a clear liquid diet and treated with IV antibiotics. Pain was managed with oral oxycodone. Patient's pain progressively improved throughout his stay. Had several bowel movements throughout his stay. Today the patient was advanced to a soft foods diet and was able to tolerate the food without pain. Patient has some pain with lots of movement but says it is manageable. Patient was agreeable to being discharged home. He was instructed to try an anti-inflammatory diet such as DASH diet or Mediterranean diet which can help prevent diverticulitis. Discharge Instructions to patient/family Please see electronic discharge instructions given to patient. Discharge Medications Reviewed and agree with Discharge Medication list on patient's Discharge Instruction sheet HPI General Chief Complaint: Abdominal/GI Problems Stated Complaint: ACUTE DIVERTICULITIS, SEPSIS Nursing Triage Note: PT AMB TO ED BY POV WITH C/O LLQ PAIN. REPORTS PAIN BEGAN FRIDAY, DENIES N/V. PT HAS TAKEN MIRALAX TODAY AND HAD MULTIPLE LIQUID BM. REPORTS INTERMITTENT FEVER. PT HAS HX DIVERTICULITIS. Source of Information: Patient Exam Limitations: No Limitations History of Present Illness Date Seen by Provider: Nov 05, 2022 Time Seen by Provider: 08:30 Location Injury Occurred: LLQ pain Timing/Duration: Intermittent Severity: Mild Modifying Factors: improves with Medication (oral oxycodone) Associated Systoms: Denies Symptoms Diagnosis/Problems Diagnosis/Problems (1) Diverticulitis Assessment & Plan: Acute diverticulitis has resolved. WBC was withn normal limits today. Pain is well under control and patient is tolerating soft foods. Instructed to start a non-inflammatory diet to help prevent future episodes of diverticulitis. CASSANDRA MCCARTHY Nov 05, 2022 15:57
[2022-11-05] MEDS ORDERED: METR-145 PO (16:22)
[2022-11-05] MEDS ORDERED: CIPR-225 PO (16:22)
--- NOTE | 2022-11-05 16:23 | Discharge Summary ---
Discharge [facility] Reconcile Patient Problems Problems Reviewed?: Yes Discharge Medications New, Converted or Re-Newed RX: Transmitted to Pharmacy New Medications: Ciprofloxacin HCl (Cipro) 500 Mg Tablet 500 MG PO BID for 7 Days, #14 TAB Metronidazole (Metronidazole) 500 Mg Tablet 500 MG PO BID for 7 Days, #14 TAB Continued Medications: Metoprolol Succinate (Metoprolol Succinate) 50 Mg Tab.er.24h 100 MG PO HS, TAB TAKES 2 (50MG) TABS Patient Instructions Goal/Follow Up Appt: f/u 1 week with PCP Activity & Diet Discharge Diet: Soft Diet Activity as Tolerated: Yes QUIN ROLLINS MD Nov 05, 2022 16:23
[2022-11-05 16:35] VITALS: BP 157/81
== END 2022-11-05 16:35 | disposition home or self-care (01) | DRG 872 ==
LOC: EDUNIT# 23:27 → ER 23:30 → 4TH 11-03 02:10
PROVIDERS: ADMIT Internal Medicine; ATTEND Family Medicine
DX: A41.9 Sepsis, unspecified organism (principal); K57.32 Diverticulitis of large intestine without perforation or abscess without bleeding; Z68.41 Body mass index [BMI] 40.0-44.9, adult; K80.20 Calculus of gallbladder without cholecystitis without obstruction; I10 Essential (primary) hypertension; K58.2 Mixed irritable bowel syndrome; E66.9 Obesity, unspecified; K76.0 Fatty (change of) liver, not elsewhere classified; H54.7 Unspecified visual loss; Z87.891 Personal history of nicotine dependence
CPT/HCPCS: 36415; 71045; 74177; 80053; 81000; 82150; 83605; 83690; 83735; 85007; 85025; 85027; 85610; 85652; 85730; 86141; 87040; 87088; 93041

== ENCOUNTER 2022-12-04 05:55 | Outpatient (CLI) | payer BC ==
[~2022-12-04] VITALS: Ht 175.3 cm; Wt 124.4 kg
[~2022-12-04 05:55] MED LIST changes: +CIPR-225 PO; +METO50TA7 PO; +METR-145 PO
[2022-12-04] MEDS ORDERED: LACT1CAP74 PO (15:48)
== END 2022-12-04 15:56 ==
LOC: PREOP 05:55
PROVIDERS: ATTEND Surgery
DX: Z01.818 Encounter for other preprocedural examination (principal); K21.9 Gastro-esophageal reflux disease without esophagitis; K57.32 Diverticulitis of large intestine without perforation or abscess without bleeding

== ENCOUNTER 2022-12-16 07:23 | Day surgery (SDC) | payer BC ==
[~2022-12-16] VITALS: Ht 175.3 cm; Wt 124.4 kg
[2022-12-16] VITALS (8 sets, daily range): BP systolic 102–134; BP diastolic 49–77
[~2022-12-16 07:23] MED LIST changes: +LACT1CAP74 PO
[2022-12-16] MEDS ORDERED: LACTATED RINGERS 1,000 ML IV STA (07:29)
[2022-12-16] MEDS ORDERED: HURRICAINE EXT TUBE (BENZOCAINE) XX PRN (07:30)
[2022-12-16] MEDS ORDERED: PROPOFOL INJECTION 50 ML IV ONE ×2 (09:05→09:14)
[2022-12-16] MEDS ORDERED: MIDAZOLAM 2 MG/2 ML (VERSED) VIAL ONE (09:06)
--- NOTE | 2022-12-16 09:48 | Progress Note-Post Operative ---
Post-Operative Progess Note Surgeon (s)/Switch Foreman (s) Surgeon JOHN MARROQUIN DO Switch Foreman: Michael Apple, MSIII Pre-Operative Diagnosis GERD, Diverticulitis Post-Operative Diagnosis Gastritis Hiatal Hernia Polyps Diverticula int hemorrhoids Procedure & Operative Findings Date of Procedure 12/16/22 Procedure Performed/Findings EGD with biopsy Colonoscopy with snare polypectomy PROCEDURE NOTE: After informed consent was obtained, the patient was brought to the endoscopy suite, placed in bed in left lateral decubitus position. He was administered IV sedation by the HARB[facility] PILOT who then monitored vitals the entire time, heart rate, blood pressure and pulse ox and the scope was inserted down the mouth through the esophagus into the stomach. On the way down, noted some mild esophagitis and a large hiatal hernia; took a picture and pushed into the stomach. Pushed past the antrum into the duodenum; duodenum looked good. Pulled back and did a biopsy of the antrum, there was some mild gastritis. Then retroflexed the scope, saw the large Grade III hiatal hernia, took a picture of this and then pulled the scope into the GE junction and took another picture of the hiatal hernia and then did a biopsy of the GE junction. Pushed the scope back into the stomach, suctioned all the air out of the stomach. At this point pulled the scope up the esophagus and out the mouth. Switched camera, switched gloves, went down below and started the colonoscopy. Pushed all the way to about 150 cm and pushed into the cecum, took a picture of appendiceal orifice and noted the ileo- cecal valve. Then slowly withdrew the scope insufflating to look circumferentially at the castillo starting in the cecum and up the ascending colon; where I found a small polyp that I removed with the snare. Continued to the hepatic flexure, then down the transverse colon to the splenic flexure, into the descending colon and down into the sigmoid. I found another small polyp here, also removed with the snare. Finally, into the rectal vault where I found a large polyp that was removed with heat and snare. Retroflexed the scope and took a picture of the internal hemorrhoids. The patient tolerated the procedure and he recovered in the endoscopy suite. Recommended for repeat colonoscopy in 5 years Anesthesia Type IV sedation by [facility] PILOT Estimated Blood Loss Estimated blood loss (mL): scant Specimens/Packing Specimens Removed antral bx GE jxn bx Asc colon polyp sigmoid polyp rectal polyp JOHN MARROQUIN DO Dec 16, 2022 09:48
--- NOTE | 2022-12-16 09:49 | Endoscopy Discharge Instruct ---
Endo Procedure/Findings Findings 1.: Gastritis 2.: Hiatal Hernia 3.: Polyp 4.: Diverticulosis, Internal Hemorrhoids Discharge Instructions - Activity: You might feel a little sleepy until tomorrow. This is due to the medicine you received to relax you. Until tomorrow, you should: NOT drive a car, operate machinery or power tools. NOT drink any alcoholic beverages. NOT make any important decisions or sign importortant papers. Do not return to work until tomorrow, unless otherwise instructed. Resume previous activities tomorrow. Diet: Start by taking liquids. If you tolerate liquids, advance to solid food. 1.: EGD in 3 years 2.: Colonscopy in 5 years Notify Physician - If you experience excessive bleeding, unusual abdominal pain, fever, or chest pain, contact your doctor immediately. JOHN MARROQUIN DO Dec 16, 2022 09:49
--- NOTE | 2022-12-16 12:49 | Anesthesia-General Post-Op ---
MAC Patient Condition Mental Status/LOC: Same as Preop Cardiovascular: Satisfactory Nausea/Vomiting: Absent Respiratory: Satisfactory Pain: Controlled Complications: Absent Post Op Complications Complications None Follow Up Care/Instructions Patient Instructions None needed. Anesthesiology Discharge Order Discharge Order Patient is doing well, no complaints, stable vital signs, no apparent adverse anesthesia problems. No complications reported per nursing. COREY BELLO CRNA Dec 16, 2022 12:49
== END 2022-12-16 10:55 | disposition home or self-care (01) ==
LOC: ENDO 07:23
PROVIDERS: ATTEND Surgery
DX: K29.70 Gastritis, unspecified, without bleeding (principal); K21.00 Gastro-esophageal reflux disease with esophagitis, without bleeding; K44.9 Diaphragmatic hernia without obstruction or gangrene; D12.2 Benign neoplasm of ascending colon; D12.8 Benign neoplasm of rectum; K63.5 Polyp of colon; K57.30 Diverticulosis of large intestine without perforation or abscess without bleeding; K64.8 Other hemorrhoids; Z28.310 Unvaccinated for COVID-19; Z87.891 Personal history of nicotine dependence; E66.01 Morbid (severe) obesity due to excess calories; Z68.41 Body mass index [BMI] 40.0-44.9, adult
CPT/HCPCS: 88305